=== PATIENT | female | born 1950 | race Caucasian/White ===

== ENCOUNTER 2016-07-21 06:45 | Day surgery (SDC) | payer MEDICARE, OTHER ==
[~2016-07-21 06:45] MED LIST: KETOROLAC TROMETHAMINE 0.45% 4 DROP/0.4 ML DROPERETTE OD PRN
[2016-07-21] MEDS: TROPICAMIDE 1% OPH SOLN 3 ML OD PRN ×3 (07:04→07:23)
[2016-07-21] MEDS: TETRACAINE HCL 0.5% OPH SOLN 2 ML OD PRN ×4 (07:04→08:04)
[2016-07-21] MEDS: BESIFLOXACIN HCL 0.6% OPH SUSP 5 ML BOTTLE OD PRN ×4 (07:04→08:34)
[2016-07-21] MEDS: CYCLOPENTOLATE 0.2%/PHENYLEPHRINE 1% OPH SOLN 2 ML OD PRN ×3 (07:04→07:23)
[2016-07-21] MEDS ORDERED: MIDAZOLAM 2 MG/2 ML INJ ONE (07:41)
[2016-07-21] MEDS ORDERED: FENTANYL CITRATE INJ/PF 100 MCG/2 ML AMPUL ONE (07:41)
[2016-07-21] MEDS: CHONDR SU A NA/HYALUR INTRAOC KIT (SURGICARE) ONE ×2 (08:19)
[2016-07-21] MEDS: LIDOCAINE 1% INJ-PF (10 MG/ML) 30 ML SDV ONE ×2 (08:19)
[2016-07-21] MEDS: EPINEPHRINE INJ/PF 1 MG/1 ML AMPULE ONE ×2 (08:19)
[2016-07-21] MEDS ORDERED: EPINEPHRINE INJ/PF 1 MG/1 ML AMPULE ONE (08:36)
--- NOTE | 2016-07-21 12:13 | [facility] DISCHARGE SUMMARY E ---
[facility] Discharge Summary NAME: NARGIS MELENDREZ AGE: 65Y ADMITTED: 07/21/2016 DISCHARGED: 07/21/2016 HOSPITAL COURSE: This is a 65-year-old female who underwent cataract extraction of the right eye. DIAGNOSIS: CATARACT, RIGHT EYE. She underwent surgery because she was having difficulty driving at night secondary to glare from headlights and difficulty seeing small print. She should be on a regular diet. No bending at her waist, no heavy lifting. She should use Besivance, Ilevro, and Durezol at 3 p.m. and 8 p.m. and sleep with a rigid shield. I will see her for her 1 day postoperative tomorrow. DICTATING PHYSICIAN: SLICK TAVAREZ M.D. [id number] PHY#: [id number] ID: [id number] JOB#: [id number] ACCT: [id number] cc:SLICK TAVAREZ M.D. >
--- NOTE | 2016-07-21 12:14 | [facility] OPERATIVE REPORT E ---
[facility] Operative Report NAME: NARGIS MELENDREZ AGE: 65Y DATE OF SURGERY: 07/21/2016 ROOM: PREOPERATIVE DIAGNOSIS: CATARACT, RIGHT EYE. POSTOPERATIVE DIAGNOSIS: CATARACT, RIGHT EYE. OPERATION: Cataract extraction with intraocular lens implant of the right eye. SURGEON: SLICK TAVAREZ MD ANESTHESIA: Topical. PROCEDURE: After obtaining appropriate consent, the patient's right eye was prepped and draped in sterile fashion as well as the surgeon in a sterile manner and cataract surgery was started. First a paracentesis blade was used to make a small side-port incision. Viscoelastic was used to inflate the anterior chamber. Next a 2.4 mm incision was made with the paracentesis blade. A continuous capsulorrhexis incision was made using a cystotome and Utrata forceps. Following this hydrodissection was carried out to make the lens fully loose and mobile and it was rotated 90 degrees. The remaining cortex was removed with irrigation/aspiration. Provisc was instilled into the capsular bag to inflate the bag. A SN60WF, 18.5 diopter lens was placed. Following this, a tafvcl-url-euymfxv technique was used to phacoemulsify the lens with a CDE of 6.59. The remaining viscoelastic material was removed with irrigation/aspiration. Following this, a 10-0 nylon suture was used to close the incision and it was found to be watertight. Vigamox was instilled in the eye and a protective shield was placed over the eye. The patient returned to the postoperative recovery in stable condition. DICTATING PHYSICIAN: SLICK TAVAREZ M.D. [id number] PHY#: [id number] ID: [id number] JOB#: [id number] ACCT: [id number] cc:SLICK TAVAREZ M.D. >
== END 2016-07-21 09:16 | disposition home or self-care (01) ==
LOC: SC 06:45
PROVIDERS: ATTEND Internal Medicine
PROC: 08RJ3JZ Replacement of Right Lens with Synthetic Substitute, Percutaneous Approach (ICD-10-PCS; principal; 2016-07-21 08:00)
DX: H25.11 Age-related nuclear cataract, right eye (principal); H04.123 Dry eye syndrome of bilateral lacrimal glands; Z96.1 Presence of intraocular lens; E11.9 Type 2 diabetes mellitus without complications; I10 Essential (primary) hypertension; E78.00 Pure hypercholesterolemia, unspecified; K21.9 Gastro-esophageal reflux disease without esophagitis; J45.909 Unspecified asthma, uncomplicated; E11.3292 Type 2 diabetes mellitus with mild nonproliferative diabetic retinopathy without macular edema, left eye; D64.9 Anemia, unspecified; Z87.891 Personal history of nicotine dependence; Z86.73 Personal history of transient ischemic attack (TIA), and cerebral infarction without residual deficits; Z79.51 Long term (current) use of inhaled steroids; Z79.84 Long term (current) use of oral hypoglycemic drugs; Z79.899 Other long term (current) drug therapy; Z79.82 Long term (current) use of aspirin; Z88.2 Allergy status to sulfonamides
CPT/HCPCS: 66984; 82962; V2632; J2250; J3490 ×2; A9270; J0171; J3010; 142

== ENCOUNTER → 2016-08-12 | Outpatient (CLI) | payer MEDICARE, OTHER ==
--- NOTE | 2016-08-12 15:39 | WOMENS IMAGING REPORT ---
EXAM DESCRIPTION: BONE DENSITY HIP/SPINE COMPLETED DATE/TIME: 08/12/2016 2:00 pm REASON FOR STUDY: M81.0 M81.0 AGE-RELATED OSTEOPOROSIS W/O CURRENT PATHOLOGICAL FRAC COMPARISON: None. TECHNIQUE: Dual-Energy X-ray Absorptiometry (DEXA) of the AP Spine and Hip. LIMITATIONS: None. FINDINGS: LUMBAR SPINE: The bone mineral density (BMD) measured from L1-L4 in the AP projection correlates with a T-score of -0.5, which is normal as defined by the World Health Organization. HIP: The bone mineral density (BMD) measured in the left femoral neck at the hip correlates with a T-score of -1.3, which is osteopenia as defined by the World Health Organization. COMMENT: The World Health Organization defines low BMD as follows: T-score: Normal: Greater than -1.0 Osteopenia: Between -1.0 and -2.5 Osteoporosis: Less than -2.5 without fractures Established osteoporosis: Less than -2.5 with fractures In general, you may wish to consider: Diagnosis Treatment Follow-up DEXA Normal BMD Prevention 2-3 years Osteopenia Prevention/Therapy 1-2 years Osteoporosis Therapy Yearly TECHNICAL DOCUMENTATION: JOB ID: [id number] [employer]- All Rights Reserved
== END ==
LOC: WI 13:44
PROVIDERS: ATTEND General Practice
DX: M81.0 Age-related osteoporosis without current pathological fracture (principal)
CPT/HCPCS: 77080

== ENCOUNTER 2017-04-27 15:07 | Emergency (ER) | payer MEDICARE, OTHER ==
--- NOTE | 2017-04-27 15:55 | ER Document Report ---
HPI - HPI Pain Level: 3 Context: Patient is a 66-year-old female presents emergency department complaining of left wrist pain. Patient states that she was walking in her garage when she slipped and fell landing on her left hip and her left wrist. States her worst pain is at the distal end of her left radius. She has full range of motion in her hand with no pain. No pain at the base of her thumb. She states she only has pain with motion otherwise she does not feel anything when she is at rest. Admits to history of tendinitis in this wrist. - REPRODUCTIVE Reproductive: DENIES: : Past Medical History - Social History Smoking Status: Never Smoker Family History: Reviewed & Not Pertinent - Past Medical History Cardiac Medical History: Reports: Hx Hypercholesterolemia, Hx Hypertension Denies: Hx Coronary Artery Disease, Hx Heart Attack Pulmonary Medical History: Denies: Hx Asthma, Hx Bronchitis, Hx COPD, Hx Pneumonia Neurological Medical History: Denies: Hx Cerebrovascular Accident, Hx Seizures Endocrine Medical History: Reports: Hx Diabetes Mellitus Type 2 Renal/ Medical History: Denies: Hx Peritoneal Dialysis GI Medical History: Reports: Hx Gastroesophageal Reflux Disease. 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 Denies: Hx Hysterectomy, Hx Mastectomy, Hx Open Heart Surgery, Hx Pacemaker - Immunizations Hx Diphtheria, Pertussis, Tetanus Vaccination: Yes Hx Pneumococcal Vaccination: 07/10/14 Vertical Provider Document - CONSTITUTIONAL Notes: PHYSICAL EXAM GENERAL: Alert, interacts well. EXTREMITIES: Moves all 4 extremities spontaneously. No evidence of snuffbox tenderness. Full range of motion of the wrist. Minimal tenderness to palpation without evidence of deformity, ecchymosis or edema of the left distal radius. No edema, radial and dorsalis pedis pulses 2/4 bilaterally. No cyanosis. NEUROLOGICAL: Alert and oriented x4. Normal speech. PSYCH: Normal affect, normal mood. SKIN: Warm, dry, normal turgor. No rashes or lesions noted. - INFECTION CONTROL TRAVEL OUTSIDE OF THE [place] IN LAST 30 DAYS: No - RESPIRATORY O2 Sat by Pulse Oximetry: 99 Course - Re-evaluation Re-evalutation: 04/27/17 16:00 patient is a 56-year-old female is hemodynamically stable, no acute distress afebrile. Patient without evidence of fracture dislocation noted on x-ray. No evidence of snuffbox tenderness. Patient states she is complete resolution of her pain when using a home splint and not using her hand. She states she feels comfortable taking Tylenol at home. Discussed with her to follow-up with her primary care provider in approximately 2 weeks if her symptoms persist for repeat imaging. Patient agrees with plan. - Vital Signs Vital signs: Temp Pulse Resp BP Pulse Ox 98.4 F 84 22 H 133/72 H 99 04/27/17 15:23 04/27/17 15:23 04/27/17 15:23 04/27/17 15:23 04/27/17 15:23 - Diagnostic Test Radiology reviewed: Image reviewed, Reports reviewed Discharge - Discharge Clinical Impression: Wrist injury Qualifiers: Encounter type: initial encounter Laterality: left Qualified Code(s): S69.92XA - Unspecified injury of left wrist, hand and finger(s), initial encounter Condition: Good Disposition: HOME, SELF-CARE Instructions: Wrist Sprain ([facility]) Additional Instructions: If symptoms persist for over 2 weeks please follow-up with your primary care doctor for repeat imaging. Referrals: TANISHA TURNER MD [Primary Care Provider] - Follow up as needed
--- NOTE | 2017-04-27 16:14 | RADIOLOGY REPORT (SQ) ---
EXAM DESCRIPTION: WRIST LEFT 3 VIEWS COMPLETED DATE/TIME: 04/27/2017 4:06 pm REASON FOR STUDY: fall, scaphoid/navicular view COMPARISON: None. NUMBER OF VIEWS: Four views. TECHNIQUE: AP, lateral, oblique, and scaphoid radiographic images acquired of the left wrist. LIMITATIONS: None. FINDINGS: MINERALIZATION: Normal. BONES: No acute fracture or dislocation. No worrisome bone lesions. Normal alignment. SOFT TISSUES: No soft tissue swelling. No foreign body. OTHER: No other significant finding. IMPRESSION: NEGATIVE STUDY OF THE LEFT WRIST. NO RADIOGRAPHIC EVIDENCE OF ACUTE INJURY. TECHNICAL DOCUMENTATION: JOB ID: [id number] [employer]- All Rights Reserved
[2017-04-27 16:40] VITALS: BP 132/80
== END 2017-04-27 16:40 | disposition home or self-care (01) ==
LOC: ER 15:07
DX: S69.92XA Unspecified injury of left wrist, hand and finger(s), initial encounter (principal); W01.0XXA Fall on same level from slipping, tripping and stumbling without subsequent striking against object, initial encounter; E78.00 Pure hypercholesterolemia, unspecified; I10 Essential (primary) hypertension; E11.9 Type 2 diabetes mellitus without complications; Z90.49 Acquired absence of other specified parts of digestive tract; Z98.51 Tubal ligation status
CPT/HCPCS: 99283

== ENCOUNTER 2018-05-17 17:13 | Emergency (ER) | payer MEDICARE, OTHER ==
--- NOTE | 2018-05-17 18:23 | RADIOLOGY REPORT (SQ) ---
EXAM DESCRIPTION: CT HEAD WITHOUT COMPLETED DATE/TIME: 05/17/2018 6:05 pm REASON FOR STUDY: head injury COMPARISON: None. TECHNIQUE: Axial images acquired through the brain without intravenous contrast. Images reviewed wi th bone, brain and subdural windows. Additional sagittal and coronal reconstructions were generated. Images stored on PACS. All CT scanners at this facility use dose modulation, iterative reconstruction, and/or weight based d osing when appropriate to reduce radiation dose to as low as reasonably achievable (ALARA). [facility]: Dose Right [facility]: CareDose [facility]: Dose Right [facility]: Teradose 4D [facility]: Macrotek RADIATION DOSE: CT Rad equipment meets quality standard of care and radiation dose reduction techniq ues were employed. CTDIvol: 53.2 mGy. DLP: 1017 mGy-cm. mGy. LIMITATIONS: None. FINDINGS: VENTRICLES: Normal size and contour. CEREBRUM: No masses. No hemorrhage. No midline shift. 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 No evidence for acute infarction. Normal thurston/white matter differentiation. No areas of low den sity in the white matter. CEREBELLUM: No masses. No hemorrhage. No alteration of density. No evidence for acute infarction. EXTRAAXIAL SPACES: No fluid collections. No masses. ORBITS AND GLOBE: No intra- or extraconal masses. Normal contour of globe without masses. CALVARIUM: No fracture. PARANASAL SINUSES: No fluid or mucosal thickening. SOFT TISSUES: Posterior scalp hematoma. OTHER: No other significant finding. IMPRESSION: POSTERIOR SCALP HEMATOMA. NO SKULL FRACTURE. 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 OTHERWISE NO ACUTE FINDINGS. EVIDENCE OF ACUTE STROKE: NO. COMMENT: Quality ID # [id number]: Final reports with documentation of one or more dose reduction techniques (e.g., Automated exposure control, adjustment of the mA and/or kV according to patient size, use of iterative reconstruction technique) TECHNICAL DOCUMENTATION: JOB ID: [id number] [employer]- All Rights Reserved Reading location - IP/workstation name: [email or web address]
[2018-05-17] MEDS ORDERED: ACETAMINOPHEN 325 MG TABLET PO ONE (18:54)
--- NOTE | 2018-05-17 18:59 | ER Document Report ---
ED General - General Chief Complaint: Fall Stated Complaint: FALL/HEAD INJURY Time Seen by Provider: 05/17/18 18:18 Notes: Patient is a 67-year old female who presents after a mechanical trip and fall in which she struck the right posterior aspect of her scalp as well as her left humeral region. She states this happened after she got her hand actually stuck in a screen of the window causing her to fall backwards onto the ground. She does state that she lost consciousness. Family at the bedside states that when she originally called them she was confused, states she had fallen in the bathroom. The patient notes a dull, throbbing, constant pain to the right posterior aspect of her scalp. Nothing improves or worsens this pain. No history of similar injuries in the past. She does take aspirin but no additional anticoagulation. She has not contacted her primary care doctor regarding today's concerns. She does arrive by EMS. She denies any focal weakness, numbness or current confusion. No vomiting. TRAVEL OUTSIDE OF THE [place] IN LAST 30 DAYS: No - Related Data Allergies/Adverse Reactions: Sulfa (Sulfonamide Antibiotics) Allergy (Mild, Verified 11/07/14 15:13) Generalized rash epinephrine Allergy (Verified 04/27/17 15:23) Past Medical History - General Information source: Patient - Social History Smoking Status: Never Smoker Chew tobacco use (# tins/day): No Frequency of alcohol use: None Drug Abuse: None Lives with: Spouse/Significant other Family History: Reviewed & Not Pertinent Patient has suicidal ideation: No Patient has homicidal ideation: No - Past Medical History Cardiac Medical History: Reports: Hx Hypercholesterolemia, Hx Hypertension Denies: Hx Coronary Artery Disease, Hx Heart Attack Pulmonary Medical History: Denies: Hx Asthma, Hx Bronchitis, Hx COPD, Hx Pneumonia Neurological Medical History: Denies: Hx Cerebrovascular Accident, Hx Seizures Endocrine Medical History: Reports: Hx Diabetes Mellitus Type 2 Renal/ Medical History: Denies: Hx Peritoneal Dialysis GI Medical History: Reports: Hx Gastroesophageal Reflux Disease. 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 Denies: Hx Hysterectomy, Hx Mastectomy, Hx Open Heart Surgery, Hx Pacemaker - Immunizations Hx Diphtheria, Pertussis, Tetanus Vaccination: Yes Hx Pneumococcal Vaccination: 07/10/14 Review of Systems - Review of Systems Notes: Constitutional: Negative for fever. Eyes: Negative for visual changes. ENT: Negative for facial injury Cardiovascular: Negative for chest injury. Respiratory: Negative for shortness of breath. Gastrointestinal: Negative for abdominal injury. Genitourinary: Negative for genital injury Musculoskeletal: Positive for left upper extremity injury Skin: Positive for laceration/abrasions. Neurological: Positive for head injury. Physical Exam - Vital signs Vitals: Resp Pulse Ox 15 100 05/17/18 17:17 05/17/18 17:17 Interpretation: Normal Notes: PHYSICAL EXAMINATION: GENERAL: Well-appearing, no acute distress. HEAD: 1 x 1 cm scalp hematoma to the left posterior central scalp, normocephalic. EYES: Pupils equal round and reactive to light, extraocular movements intact, sclera anicteric, conjunctiva are normal. ENT: nares patent, no oral pharyngeal trauma. No hemotympanum, no Michael's sign , no raccoon eyes. NECK: No midline cervical spine tenderness. Patient able to move their head to 45 bilaterally without any discomfort. LUNGS: Breath sounds clear to auscultation bilaterally and equal. No wheezes rales or rhonchi. HEART: Regular rate and rhythm without murmurs. CHEST WALL: No ecchymosis over the chest wall. ABDOMEN: Soft, nontender, normoactive bowel sounds. No guarding, no rebound. No abdominal bruising EXTREMITIES: Normal range of motion, no pitting or edema. No long bone deformities. BACK: No midline spinal tenderness, step-offs, or deformities. NEUROLOGICAL: Face symmetric. Tongue protrudes midline. Extraocular motions intact. Pupils are 2 mm and equally reactive. Normal speech, normal gait. 5 out of 5 strength in both the distal and proximal upper and lower extremities bilaterally. Sensation is grossly intact throughout. Finger to nose testing normal. Pronator drift normal. PSYCH: Normal mood, normal affect. Alert, oriented x4 SKIN: Warm, Dry, normal turgor, abrasion and hematoma over the left mid biceps Course - Re-evaluation Re-evalutation: 05/17/18 18:54 Presentation of a well appearing elderly patient in no acute distress, vitals within normal limits after a mechanical fall. Patient denies a syncopal episode as the cause for today's fall. No focal neurologic deficits on exam, no evidence of basilar skull fracture on exam without evidence of hemotympanum, raccoon eyes, or periauricular hematoma. No papilledema. Patient is not on anticoagulation. GCS is 15. Patient did have loss of consciousness. No episodes of vomiting. Given age and history a CT of the head was obtained which is noted to be normal with the exception of a posterior scalp hematoma. On exam there is a skin abrasion but no repairable lacerations. No neck pain, Nexus criteria negative. Patient has no focal deformities or limited range of motion in any joint space. She does have a hematoma over the left mid humerus and a x-ray does not show any underlying fracture. Chest and abdominal exam are benign without any focal tenderness, shortness of breath, or bruising over the chest or abdominal wall. Patient has ambulated and tolerated oral intake without difficulty. Tetanus is already up-to-date. Patient has no flank tenderness. There is no obvious findings on trauma exam today and therefore no further imaging or evaluation will be obtained at this time. At this time will discharge with return precautions and follow-up recommendations. Verbal discharge instructions given a the bedside and opportunity for questions given. Medication warnings reviewed. Patient is in agreement with this plan and has verbalized understanding of return precautions and the need for primary care follow-up in the next 24-72 hours. - Vital Signs Vital signs: Temp Pulse Resp BP Pulse Ox 98.2 F 85 20 148/86 H 97 05/17/18 17:27 05/17/18 17:27 05/17/18 17:27 05/17/18 17:27 05/17/18 17:27 - Diagnostic Test Radiology reviewed: Image reviewed, Reports reviewed Radiology results interpreted by me: 05/17/18 18:57 CT head: No acute intracranial bleed or mass, right posterior scalp hematoma Discharge - Discharge Clinical Impression: Scalp hematoma Qualifiers: Encounter type: initial encounter Qualified Code(s): S00.03XA - Contusion of scalp, initial encounter Head trauma Qualifiers: Encounter type: initial encounter Qualified Code(s): S09.90XA - Unspecified injury of head, initial encounter Traumatic hematoma of left upper arm Qualifiers: Encounter type: initial encounter Qualified Code(s): S40.022A - Contusion of left upper arm, initial encounter Condition: Good Disposition: HOME, SELF-CARE Additional Instructions: You have likely sustained a contusion (bruise) to your head. Your CT scan of your head and x-ray of your left upper extremity are normal. Symptoms to expect from a concussion include nausea, mild to moderate headache, difficulty concentrating or sleeping, and mild lightheadedness. These symptoms should improve over the next few days to weeks. Return to the emergency department or follow-up with your primary care doctor if your symptoms are not improving over this time. Signs of a more serious head injury include vomiting, severe headache, excessive sleepiness or confusion, and weakness or numbness in your face, arms or legs. Return immediately to the Emergency Department if you experience any of these more concerning symptoms. Rest, avoid strenuous physical or mental activity, and avoid activities that could potentially result in another head injury until all your symptoms from this head injury are completely resolved for at least 2-3 weeks. If you participate in sports, get cleared by your doctor or athletic trainer before returning to play. You may take ibuprofen or acetaminophen over the counter according to label instructions for mild headache or scalp soreness. Referrals: TANISHA TURNER MD [Primary Care Provider] - Follow up as needed
--- NOTE | 2018-05-17 19:13 | RADIOLOGY REPORT (SQ) ---
EXAM DESCRIPTION: HUMERUS LEFT COMPLETED DATE/TIME: 05/17/2018 7:05 pm REASON FOR STUDY: fall, hematoma COMPARISON: None. NUMBER OF VIEWS: Two views. TECHNIQUE: Two radiographic images were acquired of the left humerus to include elbow and shoulder i n at least one projection. LIMITATIONS: None. FINDINGS: MINERALIZATION: Normal. BONES: No acute fracture or dislocation. No worrisome bone lesions. SOFT TISSUES: No obvious swelling or foreign body. OTHER: No other significant finding. IMPRESSION: NEGATIVE STUDY OF THE LEFT HUMERUS. NO RADIOGRAPHIC EVIDENCE OF ACUTE INJURY. TECHNICAL DOCUMENTATION: JOB ID: [id number] [employer]- All Rights Reserved Reading location - IP/workstation name: [email or web address]
[2018-05-17 20:20] VITALS: BP 131/71
== END 2018-05-17 20:20 | disposition home or self-care (01) ==
LOC: ER 17:13
DX: S09.90XA Unspecified injury of head, initial encounter (principal); S00.03XA Contusion of scalp, initial encounter; S40.022A Contusion of left upper arm, initial encounter; W01.0XXA Fall on same level from slipping, tripping and stumbling without subsequent striking against object, initial encounter; Z88.2 Allergy status to sulfonamides; E78.00 Pure hypercholesterolemia, unspecified; I10 Essential (primary) hypertension; E11.9 Type 2 diabetes mellitus without complications; Z90.49 Acquired absence of other specified parts of digestive tract; Z98.51 Tubal ligation status
CPT/HCPCS: 99284; 73060; 70450; A9270

== ENCOUNTER 2018-07-12 14:21 | Day surgery (SDC) | payer MEDICARE, OTHER ==
[~2018-07-12 14:21] MED LIST changes: +ACETAMINOPHEN 325 MG TABLET PO PRN; +CEFAZOLIN 1 GM/D5W RTU 1 GM/50 ML RTUPB IV PRN; -KETOROLAC TROMETHAMINE 0.45% 4 DROP/0.4 ML DROPERETTE OD PRN
[2018-07-12 15:20] LABS: HEMATOCRIT 30.4 % (36.0-47.0); HEMOGLOBIN 10.3 g/dL (12.0-15.5); MEAN CORPUSCULAR HEMOGLOBIN 30.5 pg (27.0-33.4); MEAN CORPUSCULAR HGB CONC 33.9 g/dL (32.0-36.0); MEAN CORPUSCULAR VOLUME 90 fl (80-97); PLATELET COUNT 253 10^3/uL (150-450); RED BLOOD COUNT 3.37 10^6/uL (3.72-5.28); RED CELL DISTRIBUTION WIDTH 14.9 % (11.5-14.0); WHITE BLOOD COUNT 7.8 10^3/uL (4.0-10.5)
[2018-07-12] MEDS ORDERED: CEFAZOLIN INJ 1 GM VIAL ONE (15:39)
[2018-07-12 15:54] LABS: POTASSIUM 4.3 mmol/L (3.6-5.0)
[2018-07-12] MEDS ORDERED: PROPOFOL INJ 200 MG/20 ML VIAL IV ONE (17:10)
[2018-07-12] MEDS ORDERED: MIDAZOLAM 2 MG/2 ML INJ ONE (17:10)
[2018-07-12] MEDS ORDERED: FENTANYL CITRATE INJ/PF 100 MCG/2 ML AMPUL ONE (17:10)
[2018-07-12] MEDS ORDERED: OXYCODONE-ACETAMINOPHEN 5-325 MG TABLET PO PRN (17:59)
[2018-07-12] MEDS ORDERED: FENTANYL CITRATE INJ/PF 100 MCG/2 ML AMPUL IV PRN ×3 (17:59)
[2018-07-12] MEDS ORDERED: DIPHENHYDRAMINE HCL 50 MG/ML VIAL IV PRN (17:59)
[2018-07-12] MEDS ORDERED: MEPERIDINE HCL/PF INJ 25 MG/1 ML DISP.SYRIN IV PRN (17:59)
[2018-07-12] MEDS ORDERED: PROMETHAZINE HCL INJ 25 MG/1 ML VIAL IV PRN (17:59)
[2018-07-12] MEDS ORDERED: LIDOCAINE 1% INJ-PF (10 MG/ML) 30 ML SDV ONE (18:06)
--- NOTE | 2018-07-12 18:51 | Discharge Summary ---
Discharge Summary (SDC) - Discharge Final Diagnosis: pancreatic cancer Date of Surgery: 07/12/18 Condition: Good Treatment or Instructions: keep wound dry till f/u with oncology Referrals: TANISHA TURNER MD [Primary Care Provider] - Discharge Diet: As Tolerated Home Care Assistance: None Needed Report the Following to Your Physician Immediately: Shortness of Breath, Nausea, Swelling, Warmth
--- NOTE | 2018-07-12 18:56 | Operative Report ---
Operative Report DATE OF SURGERY: 07/12/18 PREOPERATIVE DIAGNOSIS: Pancreatic cancer POSTOPERATIVE DIAGNOSIS: Pancreatic cancer OPERATION: Port-A-Cath placement left chest SURGEON: SULY LOPEZ ANESTHESIA: Moderate Sedation TISSUE REMOVED OR ALTERED: None COMPLICATIONS: None ESTIMATED BLOOD LOSS: 5 cc INTRAOPERATIVE FINDINGS: Normal normal venous anatomy PROCEDURE: She was brought to the operating room in awake and alert in stable condition placed on the operating table in supine position given IV sedation left chest was prepped and draped in usual sterile fashion Percent lidocaine plain a skin wheal was raised underneath the left clavicle after this was completed we able to perform a subclavian vein cannulation with a 16-gauge needle. Needle a J-wire was placed and confirmed in the superior vena cava by fluoroscopy. . Good position of the wire the tear-away introducer dilator was placed over the wire into the superior vena cava. The dilator wire combination was removed from the introducer and then the catheter 8 Libyan was placed into the tear-away introducer and the tear-away introducer was peeled away. A small incision was made on the left anterior chest wall after anesthetizing the skin with 1% lidocaine plain pocket was made for the for the PowerPort. Once the pocket was complete the power port was attached to the catheter which was tunneled underneath the skin from the subclavian stick site to the port site. This was completed the catheter port was irrigated with heparinized saline solution and then confirmed in good position with fluoroscopy. The port site was then closed with 3-0 Vicryl suture the subcutaneous tissue and intracuticular intracuticular 4 o Biosyn for the skin. Sterile dressing was applied which completed the procedure and the patient was transferred to recovery in stable condition no complications Estimated blood loss less than 5 cc
--- NOTE | 2018-07-12 19:12 | RADIOLOGY REPORT (SQ) ---
EXAM DESCRIPTION: CHEST SINGLE VIEW COMPLETED DATE/TIME: 07/12/2018 6:58 pm REASON FOR STUDY: delta cath placement COMPARISON: None. EXAM PARAMETERS: NUMBER OF VIEWS: One view. TECHNIQUE: Single frontal radiographic view of the chest acquired. RADIATION DOSE: NA LIMITATIONS: None. FINDINGS: LUNGS AND PLEURA: Patchy airspace opacities are present in the left medial lung base. No pneumothorax. No pleural effusion. MEDIASTINUM AND HILAR STRUCTURES: Contour normal. HEART AND VASCULAR STRUCTURES: Heart normal in size. Normal vasculature. BONES: No acute findings. HARDWARE: Left chest port. OTHER: No other significant finding. IMPRESSION: Patchy airspace opacities are present in the left medial lung base. No pneumothorax. TECHNICAL DOCUMENTATION: JOB ID: [id number] 2010 [employer]- All Rights Reserved Reading location - IP/workstation name: [employer]
[2018-07-12 19:52] VITALS: BP 113/63
--- NOTE | 2018-07-13 08:40 | RADIOLOGY REPORT (SQ) ---
EXAM DESCRIPTION: NO CHG FLUORO; FLUORO/CV PLACEMENT COMPLETED DATE/TIME: 07/12/2018 9:08 pm REASON FOR STUDY: PORT-A-CATH COMPARISON: 07/12/2017 FLUOROSCOPY TIME: 1.5 minutes 4 Images saved to PACS LIMITATIONS: None. PROCEDURE: Intraoperative fluoroscopic images obtained during port placement. Please see operative report for detailed description of procedure. FINDINGS: Limited intraoperative images obtained for left-sided chest port placement. IMPRESSION: Intraoperative images obtained during left-sided chest port placement. Please see opera tive report for detailed description of procedure. COMMENT: PQRS 6045F: Fluoroscopy time of the procedure is documented in the report. TECHNICAL DOCUMENTATION: JOB ID: [id number] [employer]- All Rights Reserved Reading location - IP/workstation name: [email or web address]
--- NOTE | 2018-07-13 08:40 | RADIOLOGY REPORT (SQ) ---
EXAM DESCRIPTION: NO CHG FLUORO; FLUORO/CV PLACEMENT COMPLETED DATE/TIME: 07/12/2018 9:08 pm REASON FOR STUDY: PORT-A-CATH COMPARISON: 07/12/2017 FLUOROSCOPY TIME: 1.5 minutes 4 Images saved to PACS LIMITATIONS: None. PROCEDURE: Intraoperative fluoroscopic images obtained during port placement. Please see operative report for detailed description of procedure. FINDINGS: Limited intraoperative images obtained for left-sided chest port placement. IMPRESSION: Intraoperative images obtained during left-sided chest port placement. Please see opera tive report for detailed description of procedure. COMMENT: PQRS [id number]: Fluoroscopy time of the procedure is documented in the report. TECHNICAL DOCUMENTATION: JOB ID: [id number] [employer]- All Rights Reserved Reading location - IP/workstation name: [email or web address]
== END 2018-07-12 19:55 | disposition home or self-care (01) ==
LOC: OROUT 14:21
PROVIDERS: ATTEND Surgery
DX: C25.9 Malignant neoplasm of pancreas, unspecified (principal); D64.9 Anemia, unspecified; F41.9 Anxiety disorder, unspecified; I10 Essential (primary) hypertension; E11.9 Type 2 diabetes mellitus without complications; E78.00 Pure hypercholesterolemia, unspecified; K21.9 Gastro-esophageal reflux disease without esophagitis; Z79.82 Long term (current) use of aspirin; Z79.899 Other long term (current) drug therapy; Z79.84 Long term (current) use of oral hypoglycemic drugs
CPT/HCPCS: 36415; 82947; 84132; 85027; 71045; 77001; 36561; C1788; Q9967; J2250; J0690; J3010; J3490; J2704; J1642; 532

== ENCOUNTER 2018-09-05 09:17 | Emergency (ER) | payer MEDICARE ==
[2018-09-05 09:37] VITALS: BP 131/74
--- NOTE | 2018-09-05 10:08 | EKG REPORT ---
SEVERITY:- BORDERLINE ECG - SINUS RHYTHM SHORT IN INTERVAL, ACCELERATED AV CONDUCTION MINIMAL ST DEPRESSION, LATERAL LEADS : Confirmed by: Molina Blount 05-Sep-2018 10:08:04
[2018-09-05] MEDS ORDERED: ASPIRIN 81 MG TABLET, CHEWABLE PO ONE (10:58)
[2018-09-05] MEDS ORDERED: FENTANYL CITRATE INJ/PF 100 MCG/2 ML AMPUL IV ONE (10:58)
--- NOTE | 2018-09-05 11:00 | ER Document Report ---
ED Medical Screen (RME) - General Chief Complaint: Chest Pain Stated Complaint: CHEST PAIN Time Seen by Provider: 09/05/18 10:58 Primary Care Provider: TANISHA TURNER MD [Primary Care Provider] - Follow up as needed Notes: Chief complaint: Chest pain History of complain:( obtained from----patient) 68 years old female with a history of pancreatic cancer, currently on chemotherapy. This morning had a substernal chest discomfort. It felt like somebody sitting on her chest that lasted for about 15 minutes then it went away. It was not associated with any left arm numbness tingling sensation nausea vomiting palpitation or diaphoresis. She also having pain over the gastric feeding tube area. No fever chills or other constitutional symptoms PHYSICAL EXAMINATION: GENERAL: Cachexia of malignancy noted HEAD: Atraumatic, normocephalic. EYES: Pupils equal round and reactive to light, extraocular movements intact, conjunctiva are normal. ENT: Nares patent, oropharynx clear without exudates. Moist mucous membranes. NECK: Normal range of motion, supple without lymphadenopathy LUNGS: Breath sounds clear to auscultation bilaterally and equal. No wheezes rales or rhonchi. HEART: Regular rate and rhythm without murmurs ABDOMEN: Soft, tender over the mid abdomen noted, nondistended abdomen. No guarding, no rebound. No masses appreciated. Dictation was performed using Img[employer] voice recognition software TRAVEL OUTSIDE OF THE [place] IN LAST 30 DAYS: No - Related Data Allergies/Adverse Reactions: Sulfa (Sulfonamide Antibiotics) Allergy (Mild, Verified 09/05/18 09:19) Generalized rash epinephrine Allergy (Verified 09/05/18 09:19) Past Medical History - Past Medical History Cardiac Medical History: Reports: Hx Hypercholesterolemia, Hx Hypertension Denies: Hx Coronary Artery Disease, Hx Heart Attack Pulmonary Medical History: Denies: Hx Asthma, Hx Bronchitis, Hx COPD, Hx Pneumonia Neurological Medical History: Denies: Hx Cerebrovascular Accident, Hx Seizures Endocrine Medical History: Reports: Hx Diabetes Mellitus Type 2 Renal/ Medical History: Denies: Hx Peritoneal Dialysis GI Medical History: Reports: Hx Gastroesophageal Reflux Disease. 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 Denies: Hx Hysterectomy, Hx Mastectomy, Hx Open Heart Surgery, Hx Pacemaker - Immunizations Hx Diphtheria, Pertussis, Tetanus Vaccination: Yes History of Influenza Vaccine for 04/2017 - 09/2017 Season: Yes Influenza Administration Date for 04/2017 - 09/2017 Season: 04/09/18 Physical Exam - Vital signs Vitals: Temp Pulse BP Pulse Ox 99.0 F 94 131/74 H 98 09/05/18 09:32 09/05/18 09:32 09/05/18 09:32 09/05/18 09:32 Course - Vital Signs Vital signs: Temp Pulse Resp BP Pulse Ox 99.0 F 94 131/74 H 98 09/05/18 09:32 09/05/18 09:32 09/05/18 09:32 09/05/18 09:32 Doctor's Discharge - Discharge Referrals: TANISHA TURNER MD [Primary Care Provider] - Follow up as needed
[2018-09-05 11:35] LABS: ABSOLUTE EOSINOPHILS # (AUTO) 0.1 10^3/uL (0.0-0.6); ABSOLUTE LYMPHOCYTES (AUTO) 1.6 10^3/uL (0.5-4.7); ABSOLUTE MONOCYTES (AUTO) 0.5 10^3/uL (0.1-1.4); BASOPHILS % (AUTO) 0.5 % (0-2); EOSINOPHILS % (AUTO) 1.5 % (0-6); HEMATOCRIT 29.7 % (36.0-47.0); LYMPHOCYTES % (AUTO) 38.4 % (13-45); MEAN CORPUSCULAR HEMOGLOBIN 30.2 pg (27.0-33.4); MEAN CORPUSCULAR HGB CONC 33.6 g/dL (32.0-36.0); MEAN CORPUSCULAR VOLUME 90 fl (80-97); MONOCYTES % (AUTO) 11.1 % (3-13); PLATELET COUNT 128 10^3/uL (150-450); RED CELL DISTRIBUTION WIDTH 17.8 % (11.5-14.0); SEGMENTED NEUTROPHILS % (AUTO) 48.5 % (42-78); TOTAL CELLS COUNTED % (AUTO) 100 %; WHITE BLOOD COUNT 4.1 10^3/uL (4.0-10.5)
--- NOTE | 2018-09-05 11:50 | RADIOLOGY REPORT (SQ) ---
EXAM DESCRIPTION: CHEST SINGLE VIEW COMPLETED DATE/TIME: 09/05/2018 11:38 am REASON FOR STUDY: Chest pain COMPARISON: 07/12/2018 EXAM PARAMETERS: NUMBER OF VIEWS: One view. TECHNIQUE: Single frontal radiographic view of the chest acquired. RADIATION DOSE: NA LIMITATIONS: None. FINDINGS: LUNGS AND PLEURA: No opacities, masses or pneumothorax. No pleural effusion. MEDIASTINUM AND HILAR STRUCTURES: No masses. Contour normal. HEART AND VASCULAR STRUCTURES: Extensive mitral annular calcification. BONES: No acute findings. HARDWARE: Venous access catheter unchanged. OTHER: No other significant finding. IMPRESSION: Extensive mitral annular calcification. No acute pulmonary disease. TECHNICAL DOCUMENTATION: JOB ID: [id number] [employer]- All Rights Reserved Reading location - IP/workstation name: [email or web address]
[2018-09-05 12:01] LABS: ALANINE AMINOTRANSFERASE 32 U/L (9-52); ALKALINE PHOSPHATASE 143 U/L (38-126); ANION GAP 5 (5-19); ASPARTATE AMINO TRANSFERASE 25 U/L (14-36); BILIRUBIN,DIRECT 0.2 mg/dL (0.0-0.4); BILIRUBIN,TOTAL 0.5 mg/dL (0.2-1.3); BLOOD UREA NITROGEN 11 mg/dL (7-20); CARBON DIOXIDE 28 mmol/L (22-30); CHLORIDE 103 mmol/L (98-107); CREATINE KINASE 32 U/L (30-135); GLUCOSE 174 mg/dL (75-110); POTASSIUM 5.3 mmol/L (3.6-5.0); SODIUM 136.1 mmol/L (137-145); TOTAL PROTEIN 5.8 g/dL (6.3-8.2)
[2018-09-05 12:10] LABS: CREATINE KINASE MB 0.36 ng/mL (<4.55)
[2018-09-05 12:16] LABS: TROPONIN I < 0.012 ng/mL
== END 2018-09-05 14:31 | disposition left against medical advice (07) ==
LOC: ER 09:17
DX: R07.2 Precordial pain (principal); I10 Essential (primary) hypertension; E11.9 Type 2 diabetes mellitus without complications; C25.9 Malignant neoplasm of pancreas, unspecified; Z79.899 Other long term (current) drug therapy; Z93.1 Gastrostomy status; R10.9 Unspecified abdominal pain; Z88.2 Allergy status to sulfonamides; Z88.8 Allergy status to other drugs, medicaments and biological substances; Z53.20 Procedure and treatment not carried out because of patient's decision for unspecified reasons
CPT/HCPCS: 93005; 99285; 96374; 36415; 82553; 82550; 85025; 80053; 84484; 71045; 93010; A9270; J3010; 99281

== ENCOUNTER 2018-10-11 05:25 | Inpatient (IN) | payer MEDICARE, OTHER ==
[2018-10-04 11:39] LABS: ABSOLUTE EOSINOPHILS # (AUTO) 0.1 10^3/uL (0.0-0.6); ABSOLUTE MONOCYTES (AUTO) 0.8 10^3/uL (0.1-1.4); ABSOLUTE NEUT (AUTO) 4.1 10^3/uL (1.7-8.2); BASOPHILS % (AUTO) 0.4 % (0-2); EOSINOPHILS % (AUTO) 1.6 % (0-6); HEMATOCRIT 28.6 % (36.0-47.0); HEMOGLOBIN 9.4 g/dL (12.0-15.5); LYMPHOCYTES % (AUTO) 27.9 % (13-45); MEAN CORPUSCULAR HEMOGLOBIN 31.2 pg (27.0-33.4); MEAN CORPUSCULAR HGB CONC 33.1 g/dL (32.0-36.0); MEAN CORPUSCULAR VOLUME 94 fl (80-97); MONOCYTES % (AUTO) 11.4 % (3-13); PLATELET COUNT 134 10^3/uL (150-450); RED BLOOD COUNT 3.03 10^6/uL (3.72-5.28); RED CELL DISTRIBUTION WIDTH 21.1 % (11.5-14.0); SEGMENTED NEUTROPHILS % (AUTO) 58.7 % (42-78); TOTAL CELLS COUNTED % (AUTO) 100 %
[2018-10-04 11:54] LABS: BLOOD UREA NITROGEN 18 mg/dL (7-20); CALCIUM 8.8 mg/dL (8.4-10.2); CARBON DIOXIDE 28 mmol/L (22-30); CHLORIDE 104 mmol/L (98-107); GLUCOSE 159 mg/dL (75-110); POTASSIUM 5.1 mmol/L (3.6-5.0)
[2018-10-04 12:01] LABS: ANION GAP 5 (5-19); SODIUM 136.8 mmol/L (137-145)
--- NOTE | 2018-10-04 14:45 | EKG REPORT ---
SEVERITY:- NORMAL ECG - SINUS RHYTHM : Confirmed by: Rissa Jean MD 04-Oct-2018 14:44:45
[~2018-10-11 05:25] MED LIST changes: -ACETAMINOPHEN 325 MG TABLET PO PRN; +CEFAZOLIN 1 GM/D5W RTU 1 GM/50 ML RTUPB IV ONE; +LACTATED RINGERS 1000 ML IV PRN; +LIDOCAINE 0.5% INJ-PF (5 MG/ML) 50 ML SDV SUBCUT PRN; +METRONIDAZOLE 500 MG/NS RTU 500 MG/100 ML RTUPB IV ONE; +METRONIDAZOLE 500 MG/NS RTU 500 MG/100 ML RTUPB IV PRN
[2018-10-11 06:54] LABS: POTASSIUM 3.1 mmol/L (3.6-5.0)
[2018-10-11] MEDS ORDERED: MIDAZOLAM 2 MG/2 ML INJ ONE ×2 (07:28→15:49)
[2018-10-11] MEDS ORDERED: FENTANYL CITRATE INJ/PF 250 MCG/5 ML AMPULE ONE (07:28)
[2018-10-11] MEDS ORDERED: ACETAMINOPHEN 1,000 MG/100 ML RTUPB IV ONE (07:29)
[2018-10-11] MEDS ORDERED: HYDROMORPHONE HCL INJ/PF 2 MG/ML AMPULE ONE (07:29)
[2018-10-11] MEDS ORDERED: PROPOFOL INJ 200 MG/20 ML VIAL IV ONE (07:29)
[2018-10-11] MEDS ORDERED: EPHEDRINE SULFATE INJ 50 MG/1 ML AMPULE ONE (07:29)
--- NOTE | 2018-10-11 10:07 | XCELERA REPORT ---
[address] [address] Transthoracic Echocardiogram Report Name: NARGIS MELENDREZ Age: 68 yrs Gender: Female : 1950 Patient Status: Inpatient Patient Location: [facility]^OR^A Study Date: 10/11/2018 08:30 AM Height: 61 in Weight: 144 lb BSA: 1.6 m2 Procedure: A two-dimensional transthoracic echocardiogram with color flow Doppler was performed. Study Quality: Good. Reason For Study: MURMUR / PRE-OP History: MURMUR / PRE-OP. Ordering Physician: SULY LOPEZ Performed By: Pippa Kan Interpretation Summary The left ventricle is normal in size. There is normal left ventricular wall thickness. LV EF is > than 65% Left ventricular systolic function is normal. Doppler measurements suggest impaired left ventricular relaxation, which is associated with grade I/IV or mild diastolic dysfunction The left ventricular wall motion is normal. There is no thrombus. No ASD ,VSD , or PFO seen. The right ventricle is normal in size and function. The right atrium is normal. The left atrium is moderately dilated. There is severe mitral annular calcification. Calcified mitral apparatus causing mitral stenosis. There is no evidence of mitral valve prolapse. There is no vegetation seen on the mitral valve. There is mild mitral stenosis There is a moderate amount of mitral regurgitation There is no aortic valvular vegetation. There is no aortic valve stenosis There is aortic sclerosis without aortic stenosis. No aortic regurgitation is present. There is no tricuspid stenosis. There is a mild amount of tricuspid regurgitation There is mild pulmonary hypertension by echo RVSP is 41 to 46 mm of Hg, with RA mean of 5 to 10. There is no pulmonic valvular stenosis. There is no pulmonic valvular regurgitation. The aortic root is normal size. The inferior vena cava appeared normal and decreased > 50% with respiration (RAP 5-10 mmHg) There is no pericardial effusion. MMode/2D Measurements & Calculations RVDd: 2.9 cm LVIDd: 4.5 cm FS: 32.2 % Ao root diam: 2.5 cm IVSd: 0.99 cm LVIDs: 3.1 cm EDV(Teich): 93.3 ml Ao root area: 4.9 cm2 LVPWd: 1.0 cm ESV(Teich): 36.9 ml LA dimension: 3.9 cm EF(Teich): 60.5 % Doppler Measurements & Calculations MV E max adri: MV P1/2t max adri: Ao V2 max: LV V1 max P.0 cm/sec 124.3 cm/sec 170.6 cm/sec 5.7 mmHg MV A max adri: MV P1/2t: 79.7 msec Ao max PG: LV V1 max: 133.3 cm/sec MVA(P1/2t): 2.8 cm2 11.6 mmHg 119.4 cm/sec MV E/A: 0.86 MV dec slope: 456.8 cm/sec2 MV dec time: 0.23 sec PA V2 max: TR max adri: MV P1/2t-pr_phl: 106.1 cm/sec 299.2 cm/sec 81.9 msec PA max P.5 mmHgTR max P.8 mmHg Left Ventricle The left ventricle is normal in size. There is normal left ventricular wall thickness. LV EF is > than 65%. Left ventricular systolic function is normal. Doppler measurements suggest impaired left ventricular relaxation, which is associated with grade I/IV or mild diastolic dysfunction. The left ventricular wall motion is normal. There is no thrombus. No ASD ,VSD , or PFO seen. Right Ventricle The right ventricle is normal in size and function. Atria The right atrium is normal. The left atrium is moderately dilated. Mitral Valve There is severe mitral annular calcification. Calcified mitral apparatus causing mitral stenosis. There is no evidence of mitral valve prolapse. There is no vegetation seen on the mitral valve. There is mild mitral stenosis. There is a moderate amount of mitral regurgitation. Aortic Valve There is no aortic valvular vegetation. There is no aortic valve stenosis. There is aortic sclerosis without aortic stenosis. No aortic regurgitation is present. Tricuspid Valve There is no tricuspid stenosis. There is a mild amount of tricuspid regurgitation. There is mild pulmonary hypertension by echo. RVSP is 41 to 46 mm of Hg, with RA mean of 5 to 10. Pulmonic Valve There is no pulmonic valvular stenosis. There is no pulmonic valvular regurgitation. Great Vessels The aortic root is normal size. The inferior vena cava appeared normal and decreased > 50% with respiration (RAP 5-10 mmHg). Effusions There is no pericardial effusion. : SULY LOPEZ > Rissa Jean
[2018-10-11] MEDS ORDERED: POTASSI CL 20 MEQ/50 ML IV SCH (10:15)
[2018-10-11] MEDS ORDERED: RIDER IV SCH (10:15)
--- NOTE | 2018-10-11 10:49 | Progress Note ---
Provider Note Provider Note: CARDIOLOGY PRELIMINARY CONSULTATION NOTE by Dr. Rissa Jean on 10/11/2018. REASON FOR CONSULTATION: Patient with the mitral valve disorder for preoperative cardiac risk assessment. Patient interviewed and examined. Formal consult to follow. DIAGNOSIS: 1. Asymptomatic mitral valve disorder. Patient has mild mitral stenosis and moderate mitral regurgitation by echocardiography. 2. Pancreatic cancer for Whipple surgical procedure. 3. Hypertension: Well controlled 4. Diabetes mellitus. The patient's echocardiogram shows normal left ventricular systolic function, with mild left ventricular diastolic dysfunction. There is aortic sclerosis without stenosis. There is no aortic regurgitation. There is mild tricuspid regurgitation, with mild pulmonary hypertension. There is heavy mitral annular calcification with mild mitral stenosis, and moderate mitral regurgitation. Moderate left atrial enlargement. The patient is EKG: Sinus rhythm within normal limits. ASSESSMENT: 1.The patient will be an acceptable/average cardiac risk for this procedure under general anesthesia. 2. Postoperatively would monitor the patient's heart rhythm, especially to keep a vigilant for development of atrial fibrillation, and also monitor the patient closely for development of any right heart failure. Will follow the patient with the surgical list. Discussed with the anesthesiologist, and discussed with Dr. Flores. Formal consult to follow.
[2018-10-11 11:54] LABS: VENOUS BLOOD BASE EXCESS 1.2 mmol/L; VENOUS BLOOD HCO3 23.5 mmol/L (20-32); VENOUS BLOOD PCO2 31.1 mmHg (35-63); VENOUS BLOOD PH 7.5 (7.30-7.42)
[2018-10-11 11:59] LABS: ABSOLUTE EOSINOPHILS # (AUTO) 0.1 10^3/uL (0.0-0.6); ABSOLUTE LYMPHOCYTES (AUTO) 1.1 10^3/uL (0.5-4.7); ABSOLUTE MONOCYTES (AUTO) 0.2 10^3/uL (0.1-1.4); BASOPHILS % (AUTO) 0.8 % (0-2); EOSINOPHILS % (AUTO) 2.1 % (0-6); HEMATOCRIT 22.1 % (36.0-47.0); LYMPHOCYTES % (AUTO) 32.5 % (13-45); MEAN CORPUSCULAR HEMOGLOBIN 32.5 pg (27.0-33.4); MEAN CORPUSCULAR HGB CONC 34.4 g/dL (32.0-36.0); MEAN CORPUSCULAR VOLUME 95 fl (80-97); MONOCYTES % (AUTO) 7.2 % (3-13); PLATELET COUNT 101 10^3/uL (150-450); RED BLOOD COUNT 2.34 10^6/uL (3.72-5.28); RED CELL DISTRIBUTION WIDTH 20.1 % (11.5-14.0); SEGMENTED NEUTROPHILS % (AUTO) 57.4 % (42-78); TOTAL CELLS COUNTED % (AUTO) 100 %; WHITE BLOOD COUNT 3.4 10^3/uL (4.0-10.5)
[2018-10-11 12:04] LABS: ARTERIAL BLOOD BASE EXCESS -0.1 mmol/L; ARTERIAL BLOOD FIO2 60%; ARTERIAL BLOOD H2CO3 1.05 mmol/L (1.05-1.35); ARTERIAL BLOOD HCO3 23.8 mmol/L (20-24); ARTERIAL BLOOD O2 SATURATION 99.7 % (94-98); ARTERIAL BLOOD PCO2 34.8 mmHg (35-45); ARTERIAL BLOOD PH 7.45 (7.35-7.45); ARTERIAL BLOOD PO2 293.6 mmHg (80-100); ARTERIAL BLOOD TOTAL CO2 24.8 mmol/L (21-25)
[2018-10-11 12:05] LABS: INTERNATIONAL RATION (INR) 1.05; PROTHROMBIN TIME 14.3 SEC (11.4-15.4)
[2018-10-11 12:07] LABS: PARTIAL THROMBOPLASTIN TIME 56.1 SEC (23.5-35.8)
[2018-10-11 12:08] LABS: ANION GAP 5 (5-19); BLOOD UREA NITROGEN 15 mg/dL (7-20); CALCIUM 7.6 mg/dL (8.4-10.2); CARBON DIOXIDE 22 mmol/L (22-30); CHLORIDE 110 mmol/L (98-107); GLUCOSE 96 mg/dL (75-110); POTASSIUM 3.3 mmol/L (3.6-5.0); SODIUM 136.6 mmol/L (137-145)
[2018-10-11 12:13] LABS: HEMOGLOBIN 7.6 g/dL (12.0-15.5)
[2018-10-11] MEDS ORDERED: CALCIUM GLUCONATE 1000 MG/10 ML INJ IV ONE (12:18)
[2018-10-11 13:53] LABS: ARTERIAL BLOOD BASE EXCESS -1.6 mmol/L; ARTERIAL BLOOD H2CO3 0.94 mmol/L (1.05-1.35); ARTERIAL BLOOD HCO3 21.6 mmol/L (20-24); ARTERIAL BLOOD O2 SATURATION 99.7 % (94-98); ARTERIAL BLOOD PCO2 31.1 mmHg (35-45); ARTERIAL BLOOD PH 7.46 (7.35-7.45); ARTERIAL BLOOD PO2 289.8 mmHg (80-100); ARTERIAL BLOOD TOTAL CO2 22.5 mmol/L (21-25)
[2018-10-11 13:54] LABS: ARTERIAL BLOOD FIO2 60%
[2018-10-11 13:57] LABS: ABSOLUTE EOSINOPHILS # (AUTO) 0.1 10^3/uL (0.0-0.6); ABSOLUTE LYMPHOCYTES (AUTO) 1.6 10^3/uL (0.5-4.7); ABSOLUTE MONOCYTES (AUTO) 0.3 10^3/uL (0.1-1.4); ABSOLUTE NEUT (AUTO) 4.9 10^3/uL (1.7-8.2); BASOPHILS % (AUTO) 0.2 % (0-2); HEMATOCRIT 29.8 % (36.0-47.0); LYMPHOCYTES % (AUTO) 23.7 % (13-45); MEAN CORPUSCULAR HEMOGLOBIN 32.3 pg (27.0-33.4); MEAN CORPUSCULAR HGB CONC 35.1 g/dL (32.0-36.0); MEAN CORPUSCULAR VOLUME 92 fl (80-97); MONOCYTES % (AUTO) 4.6 % (3-13); RED BLOOD COUNT 3.24 10^6/uL (3.72-5.28); RED CELL DISTRIBUTION WIDTH 17.1 % (11.5-14.0); SEGMENTED NEUTROPHILS % (AUTO) 70.5 % (42-78); TOTAL CELLS COUNTED % (AUTO) 100 %
[2018-10-11 14:13] LABS: ANION GAP 6 (5-19); BLOOD UREA NITROGEN 12 mg/dL (7-20); CALCIUM 7.9 mg/dL (8.4-10.2); CARBON DIOXIDE 21 mmol/L (22-30); CHLORIDE 109 mmol/L (98-107); GLUCOSE 127 mg/dL (75-110); SODIUM 135.8 mmol/L (137-145)
[2018-10-11] MEDS ORDERED: SUCCINYLCHOLINE CHLORIDE INJ 200 MG/10 ML VIAL ONE (14:15)
[2018-10-11] MEDS ORDERED: ROCURONIUM BROMIDE INJ 50 MG/5 ML VIAL IV ONE (14:15)
[2018-10-11] MEDS ORDERED: LIDOCAINE 2% INJ-PF (20 MG/ML) 2 ML AMPUL ONE (14:15)
[2018-10-11] MEDS ORDERED: PHENYLEPHRINE HCL INJ/PF 10 MG/1 ML SDV ONE (14:15)
[2018-10-11 14:24] LABS: HEMOGLOBIN 10.5 g/dL (12.0-15.5); WHITE BLOOD COUNT 6.9 10^3/uL (4.0-10.5)
[2018-10-11 14:25] LABS: POTASSIUM 4.8 mmol/L (3.6-5.0)
[2018-10-11 14:29] LABS: PLATELET COUNT 98 10^3/uL (150-450)
[2018-10-11] MEDS ORDERED: CEFAZOLIN INJ 1 GM VIAL ONE (14:37)
[2018-10-11] MEDS ORDERED: PROMETHAZINE HCL INJ 25 MG/1 ML VIAL IV PRN (14:43)
[2018-10-11] MEDS ORDERED: DIPHENHYDRAMINE HCL 50 MG/ML VIAL IV PRN (14:43)
[2018-10-11] MEDS ORDERED: FENTANYL CITRATE INJ/PF 100 MCG/2 ML AMPUL IV PRN ×3 (14:43)
[2018-10-11] MEDS ORDERED: MEPERIDINE HCL/PF INJ 25 MG/1 ML DISP.SYRIN IV PRN (14:43)
[2018-10-11 15:36] LABS: ABSOLUTE LYMPHOCYTES (AUTO) 0.9 10^3/uL (0.5-4.7); ABSOLUTE MONOCYTES (AUTO) 0.3 10^3/uL (0.1-1.4); ABSOLUTE NEUT (AUTO) 3.5 10^3/uL (1.7-8.2); BASOPHILS % (AUTO) 0.3 % (0-2); EOSINOPHILS % (AUTO) 0.2 % (0-6); HEMATOCRIT 29.3 % (36.0-47.0); HEMOGLOBIN 10.3 g/dL (12.0-15.5); LYMPHOCYTES % (AUTO) 18.6 % (13-45); MEAN CORPUSCULAR HEMOGLOBIN 31.6 pg (27.0-33.4); MEAN CORPUSCULAR VOLUME 90 fl (80-97); MONOCYTES % (AUTO) 5.8 % (3-13); PLATELET COUNT 104 10^3/uL (150-450); RED BLOOD COUNT 3.25 10^6/uL (3.72-5.28); SEGMENTED NEUTROPHILS % (AUTO) 75.1 % (42-78); TOTAL CELLS COUNTED % (AUTO) 100 %; WHITE BLOOD COUNT 4.7 10^3/uL (4.0-10.5)
[2018-10-11 16:02] LABS: ANION GAP 6 (5-19); BLOOD UREA NITROGEN 11 mg/dL (7-20); CARBON DIOXIDE 21 mmol/L (22-30); CHLORIDE 110 mmol/L (98-107); GLUCOSE 125 mg/dL (75-110); POTASSIUM 3.9 mmol/L (3.6-5.0); SODIUM 136.9 mmol/L (137-145)
[2018-10-11] MEDS ORDERED: PROPOFOL 1,000 MG/100 ML INFUS..BTL IV ONE (16:39)
[2018-10-11 16:44] LABS: ARTERIAL BLOOD BASE EXCESS -0.9 mmol/L; ARTERIAL BLOOD FIO2 40%; ARTERIAL BLOOD HCO3 21.9 mmol/L (20-24); ARTERIAL BLOOD O2 SATURATION 99.2 % (94-98); ARTERIAL BLOOD PCO2 29.9 mmHg (35-45); ARTERIAL BLOOD PH 7.48 (7.35-7.45); ARTERIAL BLOOD PO2 165.8 mmHg (80-100); ARTERIAL BLOOD TOTAL CO2 22.8 mmol/L (21-25)
[2018-10-11] MEDS: PROPOFOL 1,000 MG/100 ML INFUS..BTL IV PRN (16:50)
[2018-10-11] MEDS ORDERED: DEXTROSE 40% GEL 15 GM TUBE PO PRN ×2 (16:52)
[2018-10-11] MEDS ORDERED: GLUCAGON,HUMAN RECOMB 1 MG INJ SUBCUT PRN (16:52)
[2018-10-11] MEDS ORDERED: DEXTROSE 50%-WATER 25 GM/50 ML DISP.SYRIN IV PRN ×2 (16:52)
[2018-10-11] MEDS ORDERED: PHARMACY COMMUNICATION ORDER MC NR (17:00)
[2018-10-11] MEDS ORDERED: RINGERS SOLUTION,LACTATED 1,000 ML IV PRN (17:01)
[2018-10-11] MEDS ORDERED: PROPOFOL 1,000 MG/100 ML INFUS..BTL IV PRN (17:02)
[2018-10-11] MEDS: ALBUMIN HUMAN 12.5 GM/50 ML RTUINJ IV SCH ×2 (17:16→17:17)
[2018-10-11] MEDS: MAGNESIUM SULFATE 1 GM/D5W 100 ML IV SCH ×2 (17:22→18:18)
--- NOTE | 2018-10-11 18:30 | RADIOLOGY REPORT (SQ) ---
EXAM DESCRIPTION: CHEST SINGLE VIEW COMPLETED DATE/TIME: 10/11/2018 6:14 pm REASON FOR STUDY: ET tube and Line Placement COMPARISON: 09/05/2017. EXAM PARAMETERS: NUMBER OF VIEWS: One view. TECHNIQUE: Single frontal radiographic view of the chest acquired. RADIATION DOSE: NA LIMITATIONS: None. FINDINGS: LUNGS AND PLEURA: No opacities, masses or pneumothorax. No pleural effusion. MEDIASTINUM AND HILAR STRUCTURES: No masses. Contour normal. HEART AND VASCULAR STRUCTURES: Heart normal in size. Mitral annulus calcification. Normal vasculatu re. BONES: No acute findings. HARDWARE: Tubing on the right side of the neck, unclear if this is external to the patient or a jugul ar catheter. Endotracheal tube with the tip located 2 cm proximal to the alonso. Nasogastric tube w ith the tip in the stomach. Vascular access port. Surgical hardware in the upper abdomen including surgical drain, clips, and skin robin. OTHER: No other significant finding. IMPRESSION: LIFE LINES DESCRIBED IN SATISFACTORY POSITION. NO ACUTE RADIOGRAPHIC FINDING IN THE CHEST. TECHNICAL DOCUMENTATION: JOB ID: [id number] [employer]- All Rights Reserved Reading location - IP/workstation name: [email or web address]
--- NOTE | 2018-10-11 18:31 | RADIOLOGY REPORT (SQ) ---
EXAM DESCRIPTION: KUB/ABDOMEN (SINGLE VIEW) COMPLETED DATE/TIME: 10/11/2018 6:14 pm REASON FOR STUDY: Check Placement of NG Tube C25.9 MALIGNANT NEOPLASM OF PANCREAS, UNSPECIFIED COMPARISON: None. NUMBER OF VIEWS: One view. TECHNIQUE: Supine radiographic image of the upper abdomen acquired. LIMITATIONS: None. FINDINGS: BOWEL GAS PATTERN: Normal bowel gas pattern. No dilated loops. CALCIFICATIONS: No suspicious calcifications. SOFT TISSUES: No gross mass or suggestion of organomegaly. HARDWARE: Nasogastric tube curled in the stomach. Surgical drain, surgical clips, and skin robin. BONES: No acute fracture. No worrisome bone lesions. OTHER: No other significant finding. IMPRESSION: NASOGASTRIC TUBE IN THE STOMACH. SURGICAL HARDWARE IN THE UPPER ABDOMEN WELL. TECHNICAL DOCUMENTATION: JOB ID: [id number] [email or web address]- All Rights Reserved Reading location - IP/workstation name: [email or web address]
--- NOTE | 2018-10-11 19:38 | Operative Report ---
Nonrecallable Operative Report DATE OF SURGERY: 10/11/18 PREOPERATIVE DIAGNOSIS: pancreatic cancer POSTOPERATIVE DIAGNOSIS: pancreatic cancer OPERATION: pancreaticduodenectomy SURGEON: SULY LOPEZ 1ST POULTRY CLEANER: MAYNOR AMIN - 2nd assist mihir ANESTHESIA: GA TISSUE REMOVED OR ALTERED: duodenum/pancrease. COMPLICATIONS: none ESTIMATED BLOOD LOSS: 900cc
--- NOTE | 2018-10-11 21:14 | OPERATIVE REPORT E ---
Operative Report NAME: NARGIS MELENDREZ : 1950 AGE: 68Y DATE OF SURGERY: 10/11/2018 ROOM: 601 PREOPERATIVE DIAGNOSIS: PANCREATIC CANCER. POSTOPERATIVE DIAGNOSIS: PANCREATIC CANCER. OPERATION: DIAGNOSTIC LAPAROSCOPY AND PANCREATICODUODENECTOMY. SURGEON: SULY LOPEZ M.D. SERVICER: Judy Sue PA-C, who was present for the entire procedure for wound retraction and wound closure. SECOND CREW LEADER GLUING: Gaurang López MD PROCEDURE: The patient was brought to the operating room in awake, alert, and stable condition, placed on the operating table in supine position and induced under general anesthesia, and intubated. The abdomen was prepped and draped in the usual sterile manner for the procedure. A Veress needle was placed into the umbilicus and the abdomen was insufflated with 6 liters of CO2 gas. A supraumbilical 5 mm incision was made with a 15 blade, and a 5 mm port placed into the abdominal cavity. Intraabdominal visualization revealed no evidence of a Veress needle or trocar injury. We also visualized the liver, ligament of Treitz, peritoneal surfaces, pelvis, and there was no evidence of any mesenteric spread. We therefore removed the port and reduced the pneumoperitoneum. We then proceeded with the Whipple portion of the procedure. A midline incision was used from just below the umbilicus to the xiphoid process. We carried our dissection down through subcutaneous tissue with Bovie cautery, and the midline fascia was entered. Once we entered the abdominal cavity, the Omni retractor was placed at the upper portion of the table for abdominal wall retraction. We took down the falciform ligament with the LigaSure device all the way to the diaphragm, took down the triangular ligament of the left lobe of the liver and mobilized that medially. Once this was accomplished, we identified the previous surgical anatomy. The patient had a previous gastric bypass. We identified the Campbell limb traversing on top of the colon up toward the gastric pouch. We identified the gastric remnant. She had a previous gastrostomy tube, which was removed prior to this surgery, but the gastric remnant was adhesed to the left upper anterior abdominal wall, which was taken down sharply with Bovie cautery. At this point, there was a non-communication between the gastric remnant and the gastric pouch, and this gastric remnant would be removed with the specimen. We took down the greater curvature of the stomach and the short gastric vessels with the LigaSure device, all the way to the angle of His. We then mobilized the adhesions between the lesser curvature of the stomach and the gastric pouch with blunt and sharp dissection, mobilizing the entire stomach up and away from the previously done gastric pouch and Campbell limb. After we mobilized the body and antrum of the stomach, we continued our dissection inferiorly, identifying the descending portion of the left gastric artery and divided that with the LigaSure device. This completely freed up the gastric remnant. We continued our dissection inferiorly. We then identified the Campbell limb, traced that to the biliary anastomosis in the common channel all the way to the terminal ileum. We took down the biliary limb anastomosis to the Campbell limb because this would also be removed with the Whipple specimen. We therefore came across the small bowel just at the biliary to alimentary anastomosis with one firing of the MERLE stapler with a 55 mm load and blue robin. This divided the biliary anastomosis to the alimentary anastomosis. We took down the mesentery with Bovie cautery and LigaSure device. This completely freed the alimentary limb away from the biliary limb. After this was accomplished, we turned our attention to the right upper quadrant. The patient had a previously placed common bile duct stent, and this was easily palpable in the common bile duct. We performed a wide Nikolas maneuver with Bovie cautery to mobilize the duodenum and the head of the pancreas. I could now palpate the tumor in the head of the pancreas. We then turned attention to the neck of the pancreas and the body. Now that we had mobilized the gastric remnant away from the pancreas, we could identify the hepatic artery and trace that to the gastroduodenal artery. Once we freed up the gastroduodenal artery, we doubly ligated it and divided it. We then dissected the top of the pancreas away from the portal vein and identified the portal vein traversing underneath the neck of the pancreas. I could easily insert my finger between the portal vein and the neck of the pancreas, creating a path between that, and then inferiorly identifying the superior mesenteric vein. We then used a TA55 stapler, placed it underneath the neck of the pancreas, closed it on the specimen side and divided the pancreas neck. After dividing the neck of the pancreas, I identified the pancreatic duct and cannulated with a pediatric feeding tube, which will be used as a pancreatic duct stent. The superior and inferior pancreaticoduodenal artery were oversewn with [id number] placed 2-0 silk suture. We then turned attention to the left side of the superior mesenteric vessels, identified the biliary limb that we had previously divided from the alimentary limb, and mobilized the mesentery with the LigaSure device. Once this was done, we passed it underneath the superior mesenteric vessels and brought it out the right side, taking down the ligament of Treitz. Once this was accomplished, we then continued our dissection along the neck of the pancreas, mobilizing the portal vein away from the uncinate process and noting that the patient had a fairly large tumor in the uncinate process. Once we mobilized the portal vein away from the neck of the pancreas, I was able to identify the superior mesenteric artery and the edge of the uncinate process. We created a plane between those 2 structures with the LigaSure device and continued our dissection cephalad, dividing the uncinate process from the lymphatic tissue and continuing this up to the distal bile duct. We then incised the peritoneum over the delta hepatis and dissected the common hepatic artery as well as the bile duct away from the portal vein, and slung the bile duct with umbilical tape and used that for traction. Once the pancreas head was freed away from the portal vein, we came across the distal bile duct with Metzenbaum scissors, identifying a previously placed self-expanding metal stent which was removed from the proximal bile duct. The distal portion of the stent remained with the specimen. The specimen was then able to be removed. It was sent down to Pathology. Pathology revealed that the staple line, which would be the margin on the pancreatic neck, was positive for cancer. I therefore excised another sliver of pancreas from the neck of the pancreas with a 10 blade and sent that down for a second look, and a second frozen section. That proved to have negative margins. I then cannulated the pancreatic duct with an 8-Qatari pediatric feeding tube, using that as a stent, and resewed the superior and inferior pancreaticoduodenal arteries with a neszlw-hr-whica placed 2-0 silk suture. We then turned attention to the small bowel, and identified the alimentary limb. I picked a point about 30 cm from the gastrojejunostomy and divided the alimentary limb with one firing of the Endo-MERLE stapler with a blue load. We then created a new Campbell limb for the pancreas and bile duct anastomosis, and anastomosed the proximal alimentary limb to the distal alimentary limb with an Endo-MERLE stapler, and we closed the staple holes transversely with a TA55 stapler and closed the mesenteric defect with a running 3-0 Maxon suture. This essentially allowed us to have a new Campbell limb. This was brought up posteriorly around the superior mesenteric vessels to lie in the right upper quadrant next to the pancreas and bile duct. I then created a pancreaticojejunostomy between that limb and the pancreas over an 8-Qatari pediatric feeding tube. The posterior layer was sewn with interrupted 2-0 silk. The pancreatic duct was sewn with interrupted 5-0 Maxon and the anterior pancreatic layer was sewn with interrupted 2-0 silk. Similarly, we performed a hepaticojejunostomy just distal to the pancreaticojejunostomy with interrupted 4-0 Maxon suture. Once this was completed, we picked a point distal to the biliary to alimentary anastomosis, and used this for the jejunostomy feeding tube. Using a small 2-0 Chromic suture, we made a small purse string suture placement in the jejunum, and in the center of that we made an enterotomy with Bovie cautery and placed a Dobbhoff type feeding tube into that and reached it down the small bowel. We brought that through a stab wound in the right abdominal wall. We performed a Witzel maneuver between the small bowel and the jejunostomy tube, and then tacked that to the anterior abdominal wall with interrupted 2-0 silk sutures. Once this was completed, we copiously irrigated the abdominal cavity with normal saline. We checked our anastomoses for hemostasis and it was intact. We then sprayed the hepaticojejunostomy as well as the pancreaticojejunostomy with TISSEEL tissue sealant. We placed a Miller-Carlton drain in the epigastrium and right upper quadrant next to both these anastomoses, brought it out through a stab wound in the left abdominal wall, and then closed the midline fascia with a running double looped 0 Maxon suture, and closed the skin with standard skin clips, which completed the procedure. Estimated blood loss was 900 mL. Sponge and needle counts were correct x2. The patient received 4 units of packed red cells and 4 units of fresh frozen plasma during the procedure. She was then returned to the intensive care unit in stable condition. DICTATING PHYSICIAN: SULY LOPEZ M.D. [id number] PHY#: [id number] ID: [id number] JOB#: [id number] ACCT: [id number] cc:SULY LOPEZ M.D. >
[2018-10-11] MEDS ORDERED: MORPHINE SULFATE 10 MG/ML INJ ONE (23:26)
[2018-10-11] MEDS: FAMOTIDINE INJ/PF 20 MG/2 ML SDV IV SCH (23:32)
[2018-10-12] MEDS: HEPARIN SOD (PORCINE) 5,000 UNIT/ML 1 ML SYRINGE SUBCUT SCH ×4 (00:53→22:20)
[2018-10-12] MEDS ORDERED: NORMAL SALINE 1000 ML 1,000 ML IV ONE (02:30)
[2018-10-12] MEDS: RIDER IV SCH (03:24)
[2018-10-12] MEDS: POTASSI CL 20 MEQ/50 ML IV SCH (03:24)
[2018-10-12] MEDS: MORPHINE SULFATE 10 MG/ML INJ IV PRN ×8 (03:41→22:29)
[2018-10-12] MEDS: PROPOFOL 1,000 MG/100 ML INFUS..BTL IV PRN (03:49)
[2018-10-12 04:58] LABS: ARTERIAL BLOOD BASE EXCESS 0.6 mmol/L; ARTERIAL BLOOD H2CO3 1.08 mmol/L (1.05-1.35); ARTERIAL BLOOD HCO3 24.3 mmol/L (20-24); ARTERIAL BLOOD O2 SATURATION 98.8 % (94-98); ARTERIAL BLOOD PH 7.45 (7.35-7.45); ARTERIAL BLOOD PO2 136.9 mmHg (80-100); ARTERIAL BLOOD TOTAL CO2 25.5 mmol/L (21-25)
[2018-10-12 04:59] LABS: ARTERIAL BLOOD FIO2 30%
[2018-10-12 05:12] LABS: HEMATOCRIT 31.2 % (36.0-47.0); HEMOGLOBIN 10.8 g/dL (12.0-15.5); MEAN CORPUSCULAR HEMOGLOBIN 31.4 pg (27.0-33.4); MEAN CORPUSCULAR HGB CONC 34.7 g/dL (32.0-36.0); MEAN CORPUSCULAR VOLUME 91 fl (80-97); PLATELET COUNT 114 10^3/uL (150-450); RED BLOOD COUNT 3.44 10^6/uL (3.72-5.28)
[2018-10-12 05:44] LABS: ABSOLUTE LYMPHOCYTES# (MANUAL) 0.5 10^3/uL (0.5-4.7); ABSOLUTE MONOCYTES # (MANUAL) 0.6 10^3/uL (0.1-1.4); ABSOLUTE NEUTROPHILS# (MANUAL) 8.9 10^3/uL (1.7-8.2); ANISOCYTOSIS 1+; BAND NEUTROPHILS % (MANUAL) 7 % (3-5); BASOPHILS % (MANUAL) 0 % (0-2); EOSINOPHILS % (MANUAL) 0 % (0-6); HYPOCHROMASIA 2+; LYMPHOCYTES % (MANUAL) 5 % (13-45); MONOCYTES % (MANUAL) 6 % (3-13); PLATELET COMMENT ADEQUATE; SEGMENTED NEUTROPHILS % (MAN) 82 % (42-78); TOTAL CELLS COUNTED 100
[2018-10-12 06:00] LABS: ALANINE AMINOTRANSFERASE 89 U/L (9-52); ALKALINE PHOSPHATASE 77 U/L (38-126); ANION GAP 5 (5-19); ASPARTATE AMINO TRANSFERASE 163 U/L (14-36); BILIRUBIN,DIRECT 0.4 mg/dL (0.0-0.4); BILIRUBIN,TOTAL 0.6 mg/dL (0.2-1.3); BLOOD UREA NITROGEN 10 mg/dL (7-20); CALCIUM 7.6 mg/dL (8.4-10.2); CARBON DIOXIDE 21 mmol/L (22-30); CHLORIDE 109 mmol/L (98-107); GLUCOSE 188 mg/dL (75-110); TOTAL PROTEIN 4.1 g/dL (6.3-8.2)
[2018-10-12 06:01] LABS: LIPASE < 10.0 U/L (23-300)
--- NOTE | 2018-10-12 07:04 | RADIOLOGY REPORT (SQ) ---
EXAM DESCRIPTION: X-ray single view chest. CLINICAL HISTORY: 68 years Female, intubated COMPARISON: 10/11/2018 and 09/05/2018 TECHNIQUE: Single portable x-ray view of the chest performed on 10/12/2018 at 6:09 AM FINDINGS: The lungs are relatively well expanded and are grossly clear. There is no evidence of a pneumothorax. The cardiac silhouette is normal in size and configuration. There are extensive mitral valve annular calcifications. The mediastinal contours are normal. No acute osseous abnormality is identified. No focal soft tissue abnormalities are seen. There are postsurgical changes in the upper abdomen. Lines and tubes: The endotracheal tube, feeding tube and right IJ and left subclavian central venous catheters are grossly stable. IMPRESSION: 1. No definite acute intrathoracic disease or significant change when compared to the prior studies. 2. Prominent mitral valve annular calcifications. 3. Grossly stable life support lines and tubes.
--- NOTE | 2018-10-12 07:23 | PDOC PROGRESS REPORT ---
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, UNSPECIFIED Physical Exam Vital Signs: Temp Pulse Resp BP Pulse Ox 100.0 F 100 14 149/78 H 100 10/12/18 05:23 10/12/18 06:39 10/12/18 05:00 10/12/18 06:39 10/12/18 06:39 Intake & Output 10/11/18 10/12/18 10/13/18 06:59 06:59 06:59 Intake Total 0 368 Output Total 845 Balance 0 -477 Weight 71.6 kg General appearance: PRESENT: no acute distress Eye exam: PRESENT: EOMI Mouth exam: PRESENT: moist Neck exam: PRESENT: full ROM Respiratory exam: PRESENT: clear to auscultation valarie Cardiovascular exam: PRESENT: RRR Pulses: PRESENT: normal radial pulses, normal femoral pulses Vascular exam: PRESENT: normal capillary refill GI/Abdominal exam: PRESENT: soft - jaycee serous Rectal exam: PRESENT: deferred Musculoskeletal exam: PRESENT: full ROM Neurological exam: PRESENT: alert Skin exam: PRESENT: dry Results Laboratory Results: 10/12/18 04:35 10/12/18 04:35 10/04/18 10/11/18 10/11/18 10:26 11:35 11:35 WBC RBC Hgb Hct MCV MCH MCHC RDW Plt Count Seg Neutrophils % Lymphocytes % Monocytes % Eosinophils % Basophils % Absolute Neutrophils Absolute Lymphocytes Absolute Monocytes Absolute Eosinophils Absolute Basophils Carbonic Acid HCO3/H2CO3 Ratio ABG pH ABG pCO2 ABG pO2 ABG HCO3 ABG O2 Saturation ABG Base Excess VBG pH 7.50 H VBG pCO2 31.1 L VBG HCO3 23.5 VBG Base Excess 1.2 FiO2 Sodium Cancelled Potassium Cancelled Chloride Cancelled Carbon Dioxide Cancelled Anion Gap Cancelled BUN Cancelled Creatinine Cancelled Est GFR ( Amer) Cancelled Est GFR (Non-Af Amer) Cancelled Glucose Cancelled Lactic Acid Calcium Cancelled Magnesium Total Bilirubin AST ALT Alkaline Phosphatase Total Protein Albumin Triglycerides Lipase Blood Type B POSITIVE Antibody Screen NEGATIVE 10/11/18 10/11/18 10/11/18 11:35 11:35 11:35 WBC 3.4 L RBC 2.34 L Hgb 7.6 L Hct 22.1 L MCV 95 MCH 32.5 MCHC 34.4 RDW 20.1 H Plt Count 101 L Seg Neutrophils % 57.4 Lymphocytes % 32.5 Monocytes % 7.2 Eosinophils % 2.1 Basophils % 0.8 Absolute Neutrophils 2.0 Absolute Lymphocytes 1.1 Absolute Monocytes 0.2 Absolute Eosinophils 0.1 Absolute Basophils 0.0 Carbonic Acid HCO3/H2CO3 Ratio ABG pH ABG pCO2 ABG pO2 ABG HCO3 ABG O2 Saturation ABG Base Excess VBG pH VBG pCO2 VBG HCO3 VBG Base Excess FiO2 Sodium 136.6 L Potassium 3.3 L Chloride 110 H Carbon Dioxide 22 Anion Gap 5 BUN 15 Creatinine 0.40 L Est GFR ( Amer) > 60 Est GFR (Non-Af Amer) > 60 Glucose 96 Lactic Acid 1.3 Calcium 7.6 L Magnesium Total Bilirubin AST ALT Alkaline Phosphatase Total Protein Albumin Triglycerides Lipase Blood Type Antibody Screen 10/11/18 10/11/18 10/11/18 11:50 13:37 13:37 WBC 6.9 D RBC 3.24 L Hgb 10.5 L D Hct 29.8 L MCV 92 MCH 32.3 MCHC 35.1 RDW 17.1 H Plt Count 98 L Seg Neutrophils % 70.5 Lymphocytes % 23.7 Monocytes % 4.6 Eosinophils % 1.0 Basophils % 0.2 Absolute Neutrophils 4.9 Absolute Lymphocytes 1.6 Absolute Monocytes 0.3 Absolute Eosinophils 0.1 Absolute Basophils 0.0 Carbonic Acid 1.05 HCO3/H2CO3 Ratio 22:1 ABG pH 7.45 ABG pCO2 34.8 L ABG pO2 293.6 H ABG HCO3 23.8 ABG O2 Saturation 99.7 H ABG Base Excess -0.1 VBG pH VBG pCO2 VBG HCO3 VBG Base Excess FiO2 60% Sodium 135.8 L Potassium 4.8 D Chloride 109 H Carbon Dioxide 21 L Anion Gap 6 BUN 12 Creatinine 0.39 L Est GFR ( Amer) > 60 Est GFR (Non-Af Amer) > 60 Glucose 127 H Lactic Acid Calcium 7.9 L Magnesium Total Bilirubin AST ALT Alkaline Phosphatase Total Protein Albumin Triglycerides Lipase Blood Type Antibody Screen 10/11/18 10/11/18 10/11/18 13:37 15:23 15:23 WBC 4.7 RBC 3.25 L Hgb 10.3 L Hct 29.3 L MCV 90 MCH 31.6 MCHC 35.0 RDW 17.0 H Plt Count 104 L Seg Neutrophils % 75.1 Lymphocytes % 18.6 Monocytes % 5.8 Eosinophils % 0.2 Basophils % 0.3 Absolute Neutrophils 3.5 Absolute Lymphocytes 0.9 Absolute Monocytes 0.3 Absolute Eosinophils 0.0 Absolute Basophils 0.0 Carbonic Acid 0.94 L HCO3/H2CO3 Ratio 22:1 ABG pH 7.46 H ABG pCO2 31.1 L ABG pO2 289.8 H ABG HCO3 21.6 ABG O2 Saturation 99.7 H ABG Base Excess -1.6 VBG pH VBG pCO2 VBG HCO3 VBG Base Excess FiO2 60% Sodium 136.9 L Potassium 3.9 Chloride 110 H Carbon Dioxide 21 L Anion Gap 6 BUN 11 Creatinine 0.37 L Est GFR ( Amer) > 60 Est GFR (Non-Af Amer) > 60 Glucose 125 H Lactic Acid Calcium 8.0 L Magnesium 0.8 L* Total Bilirubin AST ALT Alkaline Phosphatase Total Protein Albumin Triglycerides Lipase Blood Type Antibody Screen 10/11/18 10/11/18 10/12/18 15:23 16:25 04:35 WBC 10.0 D RBC 3.44 L Hgb 10.8 L Hct 31.2 L MCV 91 MCH 31.4 MCHC 34.7 RDW 18.0 H Plt Count 114 L Seg Neutrophils % Not Reportable Lymphocytes % Not Reportable Monocytes % Not Reportable Eosinophils % Not Reportable Basophils % Not Reportable Absolute Neutrophils Not Reportable Absolute Lymphocytes Not Reportable Absolute Monocytes Not Reportable Absolute Eosinophils Not Reportable Absolute Basophils Not Reportable Carbonic Acid 0.90 L HCO3/H2CO3 Ratio 24:1 ABG pH 7.48 H ABG pCO2 29.9 L ABG pO2 165.8 H ABG HCO3 21.9 ABG O2 Saturation 99.2 H ABG Base Excess -0.9 VBG pH VBG pCO2 VBG HCO3 VBG Base Excess FiO2 40% Sodium Potassium Chloride Carbon Dioxide Anion Gap BUN Creatinine Est GFR ( Amer) Est GFR (Non-Af Amer) Glucose Lactic Acid Calcium Magnesium Total Bilirubin AST ALT Alkaline Phosphatase Total Protein Albumin Triglycerides 65 Lipase Blood Type Antibody Screen 10/12/18 10/12/18 04:35 04:35 WBC RBC Hgb Hct MCV MCH MCHC RDW Plt Count Seg Neutrophils % Lymphocytes % Monocytes % Eosinophils % Basophils % Absolute Neutrophils Absolute Lymphocytes Absolute Monocytes Absolute Eosinophils Absolute Basophils Carbonic Acid 1.08 HCO3/H2CO3 Ratio 22:1 ABG pH 7.45 ABG pCO2 36.0 ABG pO2 136.9 H ABG HCO3 24.3 H ABG O2 Saturation 98.8 H ABG Base Excess 0.6 VBG pH VBG pCO2 VBG HCO3 VBG Base Excess FiO2 30% Sodium 135.0 L Potassium 4.0 Chloride 109 H Carbon Dioxide 21 L Anion Gap 5 BUN 10 Creatinine 0.42 L Est GFR ( Amer) > 60 Est GFR (Non-Af Amer) > 60 Glucose 188 H Lactic Acid Calcium 7.6 L Magnesium 1.3 L Total Bilirubin 0.6 AST 163 H ALT 89 H Alkaline Phosphatase 77 Total Protein 4.1 L Albumin 2.0 L Triglycerides Lipase < 10.0 L Blood Type Antibody Screen Impressions: KUB X-Ray 10/11/18 17:02 IMPRESSION: NASOGASTRIC TUBE IN THE STOMACH. SURGICAL HARDWARE IN THE UPPER ABDOMEN WELL. Chest X-Ray 10/12/18 06:00 IMPRESSION: 1. No definite acute intrathoracic disease or significant change when compared to the prior studies. 2. Prominent mitral valve annular calcifications. 3. Grossly stable life support lines and tubes. Assessment & Plan - Plan Summary Plan Summary: pod #1 whipple stable overnight jaycee approx 400cc sl decreasd urine op this am labs reviewed h/h stable wbc wnl plan iv bolus this am for decreased urine op extubation
[2018-10-12] MEDS: MAGNESIUM SULFATE/D5W 1 GM/100 ML RTUPB IV SCH ×2 (08:29→10:07)
[2018-10-12] MEDS ORDERED: CEFAZOLIN 1 GM/D5W RTU 1 GM/50 ML RTUPB IV ONE ×2 (08:30→10:30)
[2018-10-12] MEDS: METRONIDAZOLE 500 MG/NS RTU 500 MG/100 ML RTUPB IV SCH ×2 (10:05→18:12)
[2018-10-12] MEDS: FAMOTIDINE INJ/PF 20 MG/2 ML SDV IV SCH ×2 (10:10→22:21)
[2018-10-12] MEDS: NORMAL SALINE 1000 ML 1,000 ML IV PRN ×2 (10:30→20:13)
[2018-10-12] MEDS: CEFAZOLIN 1 GM/D5W RTU 1 GM/50 ML RTUPB IV SCH ×2 (13:56→22:20)
[2018-10-12] MEDS ORDERED: MORPHINE SULFATE 10 MG/ML INJ IV SCH (14:00)
[2018-10-12] MEDS ORDERED: ALBUMIN HUMAN 5% INJ 25 GM/500 ML BOTTLE IV ONE (15:00)
--- NOTE | 2018-10-12 15:40 | OPERATIVE REPORT E ---
Operative Report NAME: NARGIS MELENDREZ : 1950 AGE: 68Y DATE OF SURGERY: 10/11/2018 ROOM: 601 PREOPERATIVE DIAGNOSIS: PANCREATIC CANCER. POSTOPERATIVE DIAGNOSIS: PANCREATIC CANCER. OPERATION: Pancreaticoduodenectomy. SURGEON: SULY LOPEZ M.D. STATIONARY ENGINEER: MIRNA Mosquera, who was there for the entire case for wound retraction, clerical assistant duties, and wound closure. SECOND BLAST FURNACE CHECKER: Gaurang López M.D. DETAILS OF PROCEDURE: The patient was brought to the operating room in an awake, alert, and stable condition. Placed on the operating room table in a supine position, induced under general anesthesia, intubated. A right internal jugular vein Cordis introducer was placed after appropriate timeout for IV access during the operation. The area along the anterior border of the sternocleidomastoid muscle was prepped and then using a 16 gauge needle the right internal jugular vein was punctured and Seldinger technique was utilized to pass a wire through the needle into the superior vena cava, over that the Cordis introducer was placed and it was fixed to the skin with 2-0 Silk suture. At the completion of that portion of the procedure we then prepped and draped the abdomen in the usual sterile fashion. Prior to incision the previously placed gastrostomy tube was removed and the exit site was closed with a [id number] placed 0 Silk suture. We then made a midline incision from the xyphoid to just below the umbilicus. We carried our dissection down through subcutaneous tissue with Bovie cautery. The midline fascia was entered. DICTATION ENDED. DICTATING PHYSICIAN: SULY LOPEZ M.D. [id number] PHY#: [id number] ID: [id number] JOB#: [id number] ACCT: [id number] cc:SULY LOPEZ M.D. >
[2018-10-12] MEDS: METOPROLOL TARTRATE PF/INJ 5 MG/5 ML SDV IV SCH ×2 (16:06→22:19)
[2018-10-12] MEDS ORDERED: FUROSEMIDE INJ/PF 20 MG/2 ML SDV IV ONE (17:15)
[2018-10-12] MEDS ORDERED: FUROSEMIDE INJ/PF 20 MG/2 ML SDV ONE (17:17)
--- NOTE | 2018-10-12 23:11 | Progress Note ---
Provider Note Provider Note: CARDIOLOGY PROGRESS NOTE by 10/12/2018. SUBJECTIVE: The patient has been extubated. She earlier was on a face tent now she is on room air. Denies any chest pain or discomfort. There is no shortness of breath there is no PND orthopnea. Her urine output is slightly diminished. She does not appear to be having mild anasarca. This may be due to third spacing. There is no arrhythmia seen on the monitor. There is no PND orthopnea. There is no shortness of breath. There is no TIA CVA symptoms. OBJECTIVE: The patient appears to be mildly overweight. In no acute distress. She is well-groomed. Selected Entries 10/12/18 16:00 Temperature 99.3 F Temperature Core Source Pulse Rate 100 Respiratory 8 L Rate Blood Pressure 146/64 H [Left] Blood Pressure 91 Mean [Left] O2 Sat by Pulse 95 Oximetry Oxygen Delivery Room Air Method ( includes room air) HEAD: Is atraumatic normocephalic. EYES: Pupils are equal round regular reactive to light and accommodation. EARS: Tympanic membranes are intact. EXTERNAL AUDITORY CANALS ARE CLEAR. Nose: There is no deviated nasal septum. There is no inflammation of the nasal mucous membrane. MOUTH: Mucous membranes of mouth are moist. Tongue is moist. There is no ulcers. There is no bleeding from the gums. THROAT: There is no redness of the oropharynx. There is no exudates. THROAT: There is no redness of the oropharynx. There is no SKIN: There is no skin rashes. There is no skin lesions. There is no petechia or ecchymosis. NECK: Is supple. There is no JVD. Carotids are equal there is no bruits. THERE IS NO LYMPHADENOPATHY. THERE IS NO GOITER. There is no accessory muscle respiration use. TRACHEA is central. LUNGS: Is clear to auscultation percussion. HEART: S1-S2 is heard. There is no S3 gallop. There is no S4 gallop. There is systolic murmur left sternal border and the apex there is no rub. There is murmur of mitral regurgitation present. There is also tricuspid regurgitation present. ABDOMEN: Is soft. Dressing is dry bowel sounds are absent. EXTREMITIES femorals are diminished there is no femoral bruits. Leg pulses are diminished. There is mild anasarca. There is no DVT or cellulitis. There is no calf tenderness. SIDING MECHANIC the patient is conscious awake alert oriented x3 with no focal deficits. PSYCHIATRIC the patient judgment insight are intact her affect is normal. Labs- All tests 24 hr 10/04/18 10/12/18 10/12/18 10:26 04:35 04:35 WBC 10.0 D RBC 3.44 L Hgb 10.8 L Hct 31.2 L MCV 91 MCH 31.4 MCHC 34.7 RDW 18.0 H Plt Count 114 L Total Counted 100 Seg Neutrophils % Not Reportable Seg Neuts % (Manual) 82 H Band Neutrophils % 7 H Lymphocytes % Not Reportable Lymphocytes % (Manual) 5 L Monocytes % Not Reportable Monocytes % (Manual) 6 Eosinophils % Not Reportable Eosinophils % (Manual) 0 Basophils % Not Reportable Basophils % (Manual) 0 Absolute Neutrophils Not Reportable Abs Neuts (Manual) 8.9 H Absolute Lymphocytes Not Reportable Abs Lymphs (Manual) 0.5 Absolute Monocytes Not Reportable Abs Monocytes (Manual) 0.6 Absolute Eosinophils Not Reportable Absolute Eos (Manual) 0.0 Absolute Basophils Not Reportable Abs Basophils (Manual) 0.0 Platelet Comment ADEQUATE Hypochromasia 2+ Anisocytosis 1+ Carbonic Acid HCO3/H2CO3 Ratio ABG pH ABG pCO2 ABG pO2 ABG HCO3 ABG Total CO2 ABG O2 Saturation ABG Base Excess FiO2 Sodium 135.0 L Potassium 4.0 Chloride 109 H Carbon Dioxide 21 L Anion Gap 5 BUN 10 Creatinine 0.42 L Est GFR ( Amer) > 60 Est GFR (Non-Af Amer) > 60 Glucose 188 H Calcium 7.6 L Magnesium 1.3 L Total Bilirubin 0.6 Direct Bilirubin 0.4 Neonat Total Bilirubin Not Reportable Neonat Direct Bilirubin Not Reportable Neonat Indirect Bili Not Reportable AST 163 H ALT 89 H Alkaline Phosphatase 77 Total Protein 4.1 L Albumin 2.0 L Lipase < 10.0 L Blood Type B POSITIVE Blood Type Confirm B POSITIVE Antibody Screen NEGATIVE Crossmatch See Detail KUB X-Ray 10/11/18 17:02 IMPRESSION: NASOGASTRIC TUBE IN THE STOMACH. SURGICAL HARDWARE IN THE UPPER ABDOMEN WELL. Chest X-Ray 10/11/18 17:51 IMPRESSION: LIFE LINES DESCRIBED IN SATISFACTORY POSITION. NO ACUTE RADIOGRAPHIC FINDING IN THE CHEST. Chest X-Ray 10/12/18 06:00 IMPRESSION: 1. No definite acute intrathoracic disease or significant change when compared to the prior studies. 2. Prominent mitral valve annular calcifications. 3. Grossly stable life support lines and tubes. Impression/RECOMMENDATION: 1. Asymptomatic mitral valve disorder. Patient has mild mitral stenosis and moderate mitral regurgitation by echocardiography. 2. Pancreatic cancer f status post Whipple surgical procedure. 3. Hypertension: Well controlled 4. Diabetes mellitus. The patient's echocardiogram shows normal left ventricular systolic function, with mild left ventricular diastolic dysfunction. There is aortic sclerosis without stenosis. There is no aortic regurgitation. There is mild tricuspid regurgitation, with mild pulmonary hypertension. There is heavy mitral annular calcification with mild mitral stenosis, and moderate mitral regurgitation. Moderate left atrial enlargement. Postoperative continue IV fluids. We will give a small dose of Lasix as the patient's urine output is decreased. Cardiac status stable. Will follow.
[2018-10-13] MEDS: MORPHINE SULFATE 10 MG/ML INJ IV PRN ×4 (01:37→20:46)
[2018-10-13] MEDS: METRONIDAZOLE 500 MG/NS RTU 500 MG/100 ML RTUPB IV SCH ×3 (01:38→18:09)
[2018-10-13] MEDS: METOPROLOL TARTRATE PF/INJ 5 MG/5 ML SDV IV SCH ×4 (03:14→20:46)
[2018-10-13] MEDS: NORMAL SALINE 1000 ML 1,000 ML IV PRN ×3 (04:57→22:48)
[2018-10-13] MEDS: CEFAZOLIN 1 GM/D5W RTU 1 GM/50 ML RTUPB IV SCH ×3 (05:31→22:47)
[2018-10-13] MEDS: HEPARIN SOD (PORCINE) 5,000 UNIT/ML 1 ML SYRINGE SUBCUT SCH ×3 (05:32→22:32)
--- NOTE | 2018-10-13 09:30 | PDOC PROGRESS REPORT ---
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, UNSPECIFIED Physical Exam Vital Signs: Temp Pulse Resp BP Pulse Ox 99.7 F 96 16 142/64 H 100 10/13/18 07:57 10/13/18 07:57 10/13/18 07:57 10/13/18 07:57 10/13/18 07:57 Intake & Output 10/12/18 10/13/18 10/14/18 06:59 06:59 06:59 Intake Total 368 4126 Output Total 845 2885 125 Balance -477 1241 -125 Weight 71.6 kg 77.1 kg General appearance: PRESENT: no acute distress Head exam: PRESENT: normocephalic Eye exam: PRESENT: EOMI Mouth exam: PRESENT: moist Neck exam: PRESENT: full ROM Respiratory exam: PRESENT: clear to auscultation valarie Cardiovascular exam: PRESENT: RRR Pulses: PRESENT: normal carotid pulses, normal radial pulses, normal femoral pulses GI/Abdominal exam: PRESENT: soft - incision dry. jaycee serous Rectal exam: PRESENT: deferred Gentrourinary exam: PRESENT: urethral discharge Extremities exam: PRESENT: full ROM Musculoskeletal exam: PRESENT: full ROM Neurological exam: PRESENT: alert, awake, oriented to person, oriented to time, oriented to situation Psychiatric exam: PRESENT: appropriate affect Skin exam: PRESENT: dry Results Laboratory Results: 10/12/18 04:35 10/12/18 04:35 10/04/18 10:26 Blood Type B POSITIVE Antibody Screen NEGATIVE Impressions: KUB X-Ray 10/11/18 17:02 IMPRESSION: NASOGASTRIC TUBE IN THE STOMACH. SURGICAL HARDWARE IN THE UPPER ABDOMEN WELL. Assessment & Plan - Plan Summary Plan Summary: pod 2 s/p whipple doing well min c/o incisional pain urine op marginal, however good response yesterday with lasix will cont iv fluids will bolus with colloid as necessary out of bed today ice chips dc art line will start tube feeds in am.
--- NOTE | 2018-10-13 10:02 | RADIOLOGY REPORT (SQ) ---
EXAM DESCRIPTION: CHEST SINGLE VIEW COMPLETED DATE/TIME: 10/13/2018 6:32 am REASON FOR STUDY: intubated COMPARISON: Previous day. NUMBER OF VIEWS: One view. TECHNIQUE: Single frontal radiographic image of the chest acquired. LIMITATIONS: None. FINDINGS: LUNGS AND PLEURA: Increasing airspace opacity left lung. No pneumothorax. MEDIASTINUM AND HEART: Stable heart size and mediastinal structures. SUPPORT DEVICES: Interval removal of endotracheal tube. BONY STRUCTURES: No acute findings. HARDWARE: None. OTHER: No other significant finding. IMPRESSION: Increasing atelectasis in the left lung status post extubation. No pneumothorax. Reading location - IP/workstation name: [email or web address]
[2018-10-13] MEDS: FAMOTIDINE INJ/PF 20 MG/2 ML SDV IV SCH ×2 (10:11→22:47)
[2018-10-13 12:18] LABS: ABSOLUTE EOSINOPHILS # (AUTO) 0.1 10^3/uL (0.0-0.6); ABSOLUTE LYMPHOCYTES (AUTO) 1.4 10^3/uL (0.5-4.7); ABSOLUTE MONOCYTES (AUTO) 0.5 10^3/uL (0.1-1.4); ABSOLUTE NEUT (AUTO) 9.2 10^3/uL (1.7-8.2); BASOPHILS % (AUTO) 0.3 % (0-2); EOSINOPHILS % (AUTO) 0.6 % (0-6); HEMOGLOBIN 9.7 g/dL (12.0-15.5); LYMPHOCYTES % (AUTO) 12.5 % (13-45); MEAN CORPUSCULAR HEMOGLOBIN 31.8 pg (27.0-33.4); MEAN CORPUSCULAR HGB CONC 34.7 g/dL (32.0-36.0); MEAN CORPUSCULAR VOLUME 92 fl (80-97); MONOCYTES % (AUTO) 4.5 % (3-13); RED BLOOD COUNT 3.05 10^6/uL (3.72-5.28); RED CELL DISTRIBUTION WIDTH 19.1 % (11.5-14.0); SEGMENTED NEUTROPHILS % (AUTO) 82.1 % (42-78); TOTAL CELLS COUNTED % (AUTO) 100 %; WHITE BLOOD COUNT 11.2 10^3/uL (4.0-10.5)
[2018-10-13 12:26] LABS: ALANINE AMINOTRANSFERASE 50 U/L (9-52); ALBUMIN 1.9 g/dL (3.5-5.0); ALKALINE PHOSPHATASE 73 U/L (38-126); ASPARTATE AMINO TRANSFERASE 46 U/L (14-36); BILIRUBIN,DIRECT 0.3 mg/dL (0.0-0.4); BILIRUBIN,TOTAL 0.4 mg/dL (0.2-1.3); BLOOD UREA NITROGEN 8 mg/dL (7-20); CALCIUM 7.3 mg/dL (8.4-10.2); CHLORIDE 112 mmol/L (98-107); GLUCOSE 109 mg/dL (75-110); POTASSIUM 3.7 mmol/L (3.6-5.0)
[2018-10-13 12:31] LABS: PLATELET COUNT 97 10^3/uL (150-450)
[2018-10-13 12:32] LABS: ANION GAP 1 (5-19); CARBON DIOXIDE 25 mmol/L (22-30)
[2018-10-13] MEDS: ALBUMIN HUMAN 5% INJ 25 GM/500 ML BOTTLE IV SCH ×2 (13:25→22:45)
--- NOTE | 2018-10-13 19:52 | Progress Note ---
Provider Note Provider Note: CARDIOLOGY PROGRESS NOTE by Dr. Rissa Jean on 10/13/2018. OBJECTIVE: The patient denies any chest pain or discomfort. There is no shortness of breath. There is no arrhythmia seen on the monitor. The patient's urine output is picked up. She has not passed any flatus. Her abdominal pain due to the incision is well controlled with medication. There is no nausea vomiting. The patient still has an NG tube in. There is no TIA CVA symptoms. PHYSICAL EXAMINATION: The patient mildly obese. She is in no acute distress. She is well-groomed. Selected Entries 10/13/18 12:00 Temperature 99.9 F Temperature Core Source Pulse Rate 94 Respiratory 16 Rate Blood Pressure 110/62 [Left] Blood Pressure 78 Mean [Left] Blood Pressure Supine Position [Left] Blood Pressure 110 Systolic [Left] O2 Sat by Pulse 99 Oximetry Oxygen Delivery Nasal Cannula Method ( includes room air) Oxygen Flow 2 Rate HEAD: Is atraumatic normocephalic. EYES: Pupils are equal round regular reactive to light and accommodation. EARS: Tympanic membranes are intact. EXTERNAL AUDITORY CANALS ARE CLEAR. Nose: There is no deviated nasal septum. There is no inflammation of the nasal mucous membrane. MOUTH: Mucous membranes of mouth are moist. Tongue is moist. There is no ulcers. There is no bleeding from the gums. THROAT: There is no redness of the oropharynx. There is no exudates. THROAT: There is no redness of the oropharynx. There is no SKIN: There is no skin rashes. There is no skin lesions. There is no petechia or ecchymosis. NECK: Is supple. There is no JVD. Carotids are equal there is no bruits. THERE IS NO LYMPHADENOPATHY. THERE IS NO GOITER. There is no accessory muscle respiration use. TRACHEA is central. LUNGS: Is clear to auscultation percussion. HEART: S1-S2 is heard. There is no S3 gallop. There is no S4 gallop. There is systolic murmur left sternal border and the apex there is no rub. There is murmur of mitral regurgitation present. There is also tricuspid regurgitation present. ABDOMEN: Is soft. Dressing is dry bowel sounds are absent. EXTREMITIES femorals are diminished there is no femoral bruits. Leg pulses are diminished. There is mild anasarca. There is no DVT or cellulitis. There is no calf tenderness. HOME HEALTH LVN the patient is conscious awake alert oriented x3 with no focal deficits. PSYCHIATRIC the patient judgment insight are intact her affect is normal. Labs- All tests 24 hr 10/13/18 10/13/18 10/13/18 11:55 11:55 11:55 WBC 11.2 H RBC 3.05 L Hgb 9.7 L Hct 28.0 L MCV 92 MCH 31.8 MCHC 34.7 RDW 19.1 H Plt Count 97 L Seg Neutrophils % 82.1 H Lymphocytes % 12.5 L Monocytes % 4.5 Eosinophils % 0.6 Basophils % 0.3 Absolute Neutrophils 9.2 H Absolute Lymphocytes 1.4 Absolute Monocytes 0.5 Absolute Eosinophils 0.1 Absolute Basophils 0.0 Sodium 138.0 Potassium 3.7 Chloride 112 H Carbon Dioxide 25 Anion Gap 1 L BUN 8 Creatinine 0.39 L Est GFR ( Amer) > 60 Est GFR (Non-Af Amer) > 60 Glucose 109 Calcium 7.3 L Magnesium 1.3 L Total Bilirubin 0.4 Direct Bilirubin 0.3 Neonat Total Bilirubin Not Reportable Neonat Direct Bilirubin Not Reportable Neonat Indirect Bili Not Reportable AST 46 H ALT 50 Alkaline Phosphatase 73 Total Protein 4.0 L Albumin 1.9 L KUB X-Ray 10/11/18 17:02 IMPRESSION: NASOGASTRIC TUBE IN THE STOMACH. SURGICAL HARDWARE IN THE UPPER ABDOMEN WELL. Chest X-Ray 10/11/18 17:51 IMPRESSION: LIFE LINES DESCRIBED IN SATISFACTORY POSITION. NO ACUTE RADIOGRAPHIC FINDING IN THE CHEST. Chest X-Ray 10/12/18 06:00 IMPRESSION: 1. No definite acute intrathoracic disease or significant change when compared to the prior studies. 2. Prominent mitral valve annular calcifications. 3. Grossly stable life support lines and tubes. Chest X-Ray 10/13/18 06:00 IMPRESSION: Increasing atelectasis in the left lung status post extubation. No pneumothorax. The patient's 24-hour intake is 4126 mL. Output is 2885 mL. IMPRESSION / RECOMMENDATION: 1. Asymptomatic mitral valve disorder. Patient has mild mitral stenosis and moderate mitral regurgitation by echocardiography. 2. Pancreatic cancer f status post Whipple surgical procedure. Patient stable. As per nursing the patient will be started on tube feedings from tomorrow by the surgicalist. 3. Hypertension: Well controlled 4. Diabetes mellitus. Medications reviewed. Management plan discussed with the attending physician on the case. Medical decision making is of moderate complexity. We will follow with you. 40 minutes spent on this patient more than 50% of time spent in direct patient care. Discussed the patient's condition with the patient and patient's family. Will follow.
[2018-10-14] MEDS: MORPHINE SULFATE 10 MG/ML INJ IV PRN ×4 (01:50→19:30)
[2018-10-14] MEDS: METRONIDAZOLE 500 MG/NS RTU 500 MG/100 ML RTUPB IV SCH ×3 (01:55→19:53)
[2018-10-14] MEDS: METOPROLOL TARTRATE PF/INJ 5 MG/5 ML SDV IV SCH ×4 (03:53→21:06)
[2018-10-14] MEDS: CEFAZOLIN 1 GM/D5W RTU 1 GM/50 ML RTUPB IV SCH ×3 (05:50→21:17)
[2018-10-14] MEDS ORDERED: DEXTROSE 50%-WATER 25 GM/50 ML DISP.SYRIN IV ONE ×2 (06:08→06:30)
[2018-10-14] MEDS ORDERED: DEXTROSE 50%-WATER SYRINGE 25 GM/50 ML DOSE IV PRN (06:30)
[2018-10-14] MEDS ORDERED: DEXTROSE 40% GEL 15 GM TUBE PO PRN ×3 (06:30→11:44)
[2018-10-14] MEDS ORDERED: GLUCAGON,HUMAN RECOMB 1 MG INJ IM PRN ×2 (06:30→11:44)
[2018-10-14] MEDS ORDERED: DEXTROSE 50%-WATER SYRINGE 12.5 GM/25 ML DOSE IV PRN (06:30)
[2018-10-14] MEDS ORDERED: DEXTROSE 40% GEL 15 GM TUBE X 2 PO PRN (06:30)
[2018-10-14] MEDS: ALBUMIN HUMAN 5% INJ 25 GM/500 ML BOTTLE IV SCH ×2 (07:34→10:45)
[2018-10-14] MEDS: HEPARIN SOD (PORCINE) 5,000 UNIT/ML 1 ML SYRINGE SUBCUT SCH ×3 (07:34→21:07)
[2018-10-14 08:07] LABS: ABSOLUTE EOSINOPHILS # (AUTO) 0.2 10^3/uL (0.0-0.6); ABSOLUTE LYMPHOCYTES (AUTO) 1.3 10^3/uL (0.5-4.7); ABSOLUTE MONOCYTES (AUTO) 0.5 10^3/uL (0.1-1.4); ABSOLUTE NEUT (AUTO) 7.9 10^3/uL (1.7-8.2); BASOPHILS % (AUTO) 0.3 % (0-2); EOSINOPHILS % (AUTO) 1.9 % (0-6); HEMATOCRIT 26.6 % (36.0-47.0); HEMOGLOBIN 9.1 g/dL (12.0-15.5); LYMPHOCYTES % (AUTO) 13.6 % (13-45); MEAN CORPUSCULAR HEMOGLOBIN 31.9 pg (27.0-33.4); MEAN CORPUSCULAR HGB CONC 34.1 g/dL (32.0-36.0); MEAN CORPUSCULAR VOLUME 94 fl (80-97); MONOCYTES % (AUTO) 4.6 % (3-13); RED BLOOD COUNT 2.84 10^6/uL (3.72-5.28); RED CELL DISTRIBUTION WIDTH 19.1 % (11.5-14.0); SEGMENTED NEUTROPHILS % (AUTO) 79.6 % (42-78); TOTAL CELLS COUNTED % (AUTO) 100 %; WHITE BLOOD COUNT 9.9 10^3/uL (4.0-10.5)
[2018-10-14 08:17] LABS: ALBUMIN 1.7 g/dL (3.5-5.0); BLOOD UREA NITROGEN 6 mg/dL (7-20); CALCIUM 7.2 mg/dL (8.4-10.2); POTASSIUM 3.4 mmol/L (3.6-5.0)
[2018-10-14 08:22] LABS: CARBON DIOXIDE 24 mmol/L (22-30); CHLORIDE 113 mmol/L (98-107); SODIUM 138.6 mmol/L (137-145)
[2018-10-14 08:27] LABS: ANION GAP 2 (5-19); GLUCOSE 52 mg/dL (75-110)
[2018-10-14 08:37] LABS: PLATELET COUNT 88 10^3/uL (150-450)
--- NOTE | 2018-10-14 08:45 | RADIOLOGY REPORT (SQ) ---
EXAM DESCRIPTION: CHEST SINGLE VIEW COMPLETED DATE/TIME: 10/14/2018 7:00 am REASON FOR STUDY: intubated COMPARISON: None. NUMBER OF VIEWS: One view. TECHNIQUE: Single frontal radiographic image of the chest acquired. LIMITATIONS: None. FINDINGS: LUNGS AND PLEURA: Improved aeration in the left upper lung. Unchanged small left pleural effusion. MEDIASTINUM AND HEART: Stable heart size and mediastinal structures. SUPPORT DEVICES: Appropriate location without change. BONY STRUCTURES: No acute findings. HARDWARE: None. OTHER: No other significant finding. IMPRESSION: Improved aeration left lung. Reading location - IP/workstation name: [email or web address]
--- NOTE | 2018-10-14 09:51 | PDOC PROGRESS REPORT ---
Subjective Progress Note for:: 10/14/18 Subjective:: feels ok was up to chair yesterday no flatus min ng op Reason For Visit: C25.9 MALIGNANT NEOPLASM OF PANCREAS, UNSPECIFIED Physical Exam Vital Signs: Temp Pulse Resp BP Pulse Ox 99.5 F 86 16 120/71 99 10/14/18 08:00 10/14/18 08:00 10/14/18 08:00 10/14/18 08:00 10/14/18 08:00 Intake & Output 10/13/18 10/14/18 10/15/18 06:59 06:59 06:59 Intake Total 4126 2450 150 Output Total 2885 1900 45 Balance 1241 550 105 Weight 77.1 kg 76.7 kg General appearance: PRESENT: no acute distress Head exam: PRESENT: normocephalic Eye exam: PRESENT: EOMI Mouth exam: PRESENT: moist Neck exam: PRESENT: full ROM Respiratory exam: PRESENT: clear to auscultation valarie Cardiovascular exam: PRESENT: RRR Pulses: PRESENT: normal radial pulses, normal femoral pulses Vascular exam: PRESENT: normal capillary refill GI/Abdominal exam: PRESENT: hypoactive bowel sounds, soft Rectal exam: PRESENT: deferred Extremities exam: PRESENT: full ROM Musculoskeletal exam: PRESENT: full ROM Neurological exam: PRESENT: alert, awake, oriented to person, oriented to place, oriented to time, oriented to situation Psychiatric exam: PRESENT: appropriate affect Results Laboratory Results: 10/14/18 05:53 10/14/18 05:53 10/13/18 10/13/18 10/13/18 11:55 11:55 11:55 WBC 11.2 H RBC 3.05 L Hgb 9.7 L Hct 28.0 L MCV 92 MCH 31.8 MCHC 34.7 RDW 19.1 H Plt Count 97 L Seg Neutrophils % 82.1 H Lymphocytes % 12.5 L Monocytes % 4.5 Eosinophils % 0.6 Basophils % 0.3 Absolute Neutrophils 9.2 H Absolute Lymphocytes 1.4 Absolute Monocytes 0.5 Absolute Eosinophils 0.1 Absolute Basophils 0.0 Sodium 138.0 Potassium 3.7 Chloride 112 H Carbon Dioxide 25 Anion Gap 1 L BUN 8 Creatinine 0.39 L Est GFR ( Amer) > 60 Est GFR (Non-Af Amer) > 60 Glucose 109 Calcium 7.3 L Magnesium 1.3 L Total Bilirubin 0.4 AST 46 H ALT 50 Alkaline Phosphatase 73 Total Protein 4.0 L Albumin 1.9 L 10/14/18 10/14/18 05:53 05:53 WBC 9.9 RBC 2.84 L Hgb 9.1 L Hct 26.6 L MCV 94 MCH 31.9 MCHC 34.1 RDW 19.1 H Plt Count 88 L Seg Neutrophils % 79.6 H Lymphocytes % 13.6 Monocytes % 4.6 Eosinophils % 1.9 Basophils % 0.3 Absolute Neutrophils 7.9 Absolute Lymphocytes 1.3 Absolute Monocytes 0.5 Absolute Eosinophils 0.2 Absolute Basophils 0.0 Sodium 138.6 Potassium 3.4 L Chloride 113 H Carbon Dioxide 24 Anion Gap 2 L BUN 6 L Creatinine 0.38 L Est GFR ( Amer) > 60 Est GFR (Non-Af Amer) > 60 Glucose 52 L Calcium 7.2 L Magnesium 1.3 L Total Bilirubin AST ALT Alkaline Phosphatase Total Protein Albumin 1.7 L Impressions: KUB X-Ray 10/11/18 17:02 IMPRESSION: NASOGASTRIC TUBE IN THE STOMACH. SURGICAL HARDWARE IN THE UPPER ABDOMEN WELL. Chest X-Ray 10/14/18 06:00 IMPRESSION: Improved aeration left lung. Assessment & Plan - Plan Summary Plan Summary: doing well pod #3 labs reviwed h.h stable wbc wnl lft's, lipase ok plan dc ng transfer to medical floor replace mag start tube feeds.
[2018-10-14] MEDS: FAMOTIDINE INJ/PF 20 MG/2 ML SDV IV SCH ×2 (10:39→21:07)
[2018-10-14] MEDS: MAGNESIUM SULFATE/D5W 1 GM/100 ML RTUPB IV SCH ×2 (10:41→13:45)
[2018-10-14] MEDS: NORMAL SALINE 1000 ML 1,000 ML IV PRN ×2 (10:41→13:55)
[2018-10-14] MEDS ORDERED: POTASSIUM CHLORIDE 20 MEQ/15 ML UDCUP PO ONE (11:10)
[2018-10-14] MEDS ORDERED: LORAZEPAM 0.5 MG TABLET PO PRN (11:12)
[2018-10-14] MEDS ORDERED: PROMETHAZINE HCL 25 MG TABLET PO PRN (11:12)
[2018-10-14] MEDS ORDERED: ALBUMIN HUMAN 12.5 GM/50 ML RTUINJ IV SCH (11:15)
[2018-10-14] MEDS ORDERED: CYANOCOBALAMIN (VITAMIN B-12) INJ 1000 MCG/1 ML VIAL IM SCH (11:15)
[2018-10-14] MEDS ORDERED: DEXTROSE 50%-WATER 25 GM/50 ML DISP.SYRIN IV PRN ×2 (11:44)
--- NOTE | 2018-10-14 11:48 | PDOC CONSULTATION ---
Consultation Consult Date: 10/14/18 Attending physician:: SULY LOPEZ Consult reason:: Diabetes mellitus with low blood sugars History of Present Illness Admission Date/PCP: 10/11/18 05:25 TANISHA TURNER MD Patient complains of: No complaints from the patient today History of Present Illness: NARGIS MELENDREZ is a 68 year old female with history of pancreatic cancer, mitral valve disorder, hypertension, diabetes mellitus admitted for Whipple's procedure on 10/11/2018-patient has a successful surgery on 10/11/2018. Patient was cleared by Dr. Jean for surgery no postop complications. Patient still have a drainage tube at the surgical site. She has a G-tube and plan is to start G- tube feedings from today. The today's labs magnesium is 1.3 which is supplemen lu potassium is 3.4 getting potassium supplements albumin is 1.9 getting IV albumin 50 g every 8 hours. pt is downgraded to medical floor by the surgical team. Past Medical History Cardiac Medical History: Reports: Hyperlipidema, Hypertension Denies: Atrial Fibrillation, Congestive Heart Failure, Coronary Artery Disease, Myocardial Infarction, Peripheral Vascular Disease, Pulmonary Embolism, Heart Murmur Pulmonary Medical History: Reports: Asthma Denies: Bronchitis, Chronic Obstructive Pulmonary Disease (COPD), Pneumonia, Respiratory Failure, Sleep Apnea, Tuberculosis Neurological Medical History: Denies: Seizures Endocrine Medical History: Reports: Diabetes Mellitus Type 2 Denies: Hyperthyroidism, Hypothyroidism Renal/ Medical History: Denies: End Stage Renal Disease Malignancy Medical History: Denies: Breast Cancer, Cervical Cancer, Leukemia, Lung Cancer, Ovarian Cancer GI Medical History: Reports: Gastroesophageal Reflux Disease Denies: Crohn's Disease, Hepatitis, Hiatal Hernia Musculoskeltal Medical History: Reports: Arthritis Denies: Fibromyalgia Psychiatric Medical History: Reports: Depression Denies: Bipolar Disorder, Dementia, Post Traumatic Stress Disorder Hematology: Reports: Anemia Denies: Hemophilia, Sickle Cell Disease Infectious Medical History: Denies: HIV Past Surgical History Past Surgical History: Reports: Appendectomy, Cholecystectomy, Gastric Bypass Surgery, Orthopedic Surgery - left femur fx, Tonsillectomy, Tubal Ligation Denies: Amputation, Section, Colostomy, Coronary Artery Bypass Graft, Herniorrhaphy, Hysterectomy, Mastectomy, Pacemaker Social History Information Source: Patient Smoking Status: Never Smoker Frequency of Alcohol Use: Rare Hx Recreational Drug Use: No Hx Prescription Drug Abuse: No - Advance Directive Resuscitation Status: Full Code Family History Family History: Reviewed & Not Pertinent Parental Family History Reviewed: Yes Children Family History Reviewed: Yes Sibling(s) Family History Reviewed.: Yes Medication/Allergy Home Medications: Simvastatin [Zocor 20 mg Tablet] 40 mg PO QHS 05/17/12 Aspirin [Aspirin EC] 81 mg PO DAILY 10/16/15 Sertraline HCl [Zoloft] 100 mg PO DAILY 10/16/15 Bimatoprost [Lumigan 0.01% Oph Soln 2.5 ml/Bottle] 1 drop OP DAILY 07/11/18 Cyanocobalamin (Vitamin B-12) [Vitamin B-12 Inj 1000 Mcg/1 ml Vial] 1,000 mcg IM .MONTHLY 07/11/18 Montelukast Sodium [Singulair 10 mg Tablet] 10 mg PO QHS 07/11/18 Pramipexole Di-HCl [Mirapex] 1 mg PO QPM PRN 07/11/18 Sitagliptin Phos/Metformin HCl [Janumet 50-1,000 Mg Tablet] 1 each PO BID 07/11/18 Clobetasol Propionate [Temovate 0.05% Ointment 15 Gm] 1 applic TP BID 10/04/18 Lisinopril [Prinivil] 5 mg PO QAM 10/04/18 Lorazepam [Ativan 0.5 mg Tablet] 0.5 mg PO Q4 PRN 10/04/18 Ondansetron [Ondansetron Odt] 8 mg PO BID 10/04/18 Pantoprazole Sodium [Protonix] 40 mg PO BID 10/04/18 Promethazine HCl [Phenergan 25 mg Tablet] 25 mg PO Q6 PRN 10/04/18 Fluconazole [Diflucan] 150 mg PO PRN PRN 10/11/18 Allergies/Adverse Reactions: Sulfa (Sulfonamide Antibiotics) Allergy (Mild, Verified 10/11/18 06:39) Generalized rash epinephrine Adverse Reaction (Verified 10/11/18 06:39) Review of Systems Constitutional: PRESENT: fever(s). ABSENT: fatigue, weakness Eyes: ABSENT: visual disturbances Ears: ABSENT: hearing changes Nose, Mouth, and Throat: ABSENT: sore throat Cardiovascular: ABSENT: chest pain, dyspnea on exertion Respiratory: ABSENT: dyspnea, hemoptysis Gastrointestinal: ABSENT: dysphagia, melena, nausea, vomiting Neurological: ABSENT: abnormal gait, abnormal speech, confusion, dizziness, focal weakness, syncope Psychiatric: PRESENT: as per HPI Physical Exam Vital Signs: Temp Pulse Resp BP Pulse Ox 99.5 F 86 16 120/71 99 10/14/18 08:00 10/14/18 08:00 10/14/18 08:00 10/14/18 08:00 10/14/18 08:00 Intake & Output 10/13/18 10/14/18 10/15/18 06:59 06:59 06:59 Intake Total 4126 3450 150 Output Total 2885 1900 45 Balance 1241 1550 105 Weight 77.1 kg 76.7 kg General appearance: PRESENT: no acute distress, thin Head exam: PRESENT: atraumatic Eye exam: PRESENT: PERRLA Mouth exam: PRESENT: moist, tongue midline Neck exam: ABSENT: carotid bruit, JVD, lymphadenopathy, thyromegaly Respiratory exam: PRESENT: clear to auscultation valarie. ABSENT: rales, rhonchi, wheezes Cardiovascular exam: PRESENT: RRR. ABSENT: diastolic murmur, rubs, systolic murmur GI/Abdominal exam: PRESENT: other - Bowel sounds are sluggish patient has drain at the surgical site with bloodstained clear drainage and she has a G-tube present. Extremities exam: PRESENT: full ROM. ABSENT: calf tenderness, clubbing, pedal edema Neurological exam: PRESENT: alert, awake, oriented to person, oriented to place, oriented to time, oriented to situation, CN II-XII grossly intact. ABSENT: motor sensory deficit Psychiatric exam: PRESENT: appropriate affect, normal mood. ABSENT: homicidal ideation, suicidal ideation Results Laboratory Results: 10/14/18 05:53 10/14/18 05:53 10/13/18 10/13/18 10/13/18 11:55 11:55 11:55 WBC 11.2 H RBC 3.05 L Hgb 9.7 L Hct 28.0 L MCV 92 MCH 31.8 MCHC 34.7 RDW 19.1 H Plt Count 97 L Seg Neutrophils % 82.1 H Lymphocytes % 12.5 L Monocytes % 4.5 Eosinophils % 0.6 Basophils % 0.3 Absolute Neutrophils 9.2 H Absolute Lymphocytes 1.4 Absolute Monocytes 0.5 Absolute Eosinophils 0.1 Absolute Basophils 0.0 Sodium 138.0 Potassium 3.7 Chloride 112 H Carbon Dioxide 25 Anion Gap 1 L BUN 8 Creatinine 0.39 L Est GFR ( Amer) > 60 Est GFR (Non-Af Amer) > 60 Glucose 109 Calcium 7.3 L Magnesium 1.3 L Total Bilirubin 0.4 AST 46 H ALT 50 Alkaline Phosphatase 73 Total Protein 4.0 L Albumin 1.9 L 10/14/18 10/14/18 05:53 05:53 WBC 9.9 RBC 2.84 L Hgb 9.1 L Hct 26.6 L MCV 94 MCH 31.9 MCHC 34.1 RDW 19.1 H Plt Count 88 L Seg Neutrophils % 79.6 H Lymphocytes % 13.6 Monocytes % 4.6 Eosinophils % 1.9 Basophils % 0.3 Absolute Neutrophils 7.9 Absolute Lymphocytes 1.3 Absolute Monocytes 0.5 Absolute Eosinophils 0.2 Absolute Basophils 0.0 Sodium 138.6 Potassium 3.4 L Chloride 113 H Carbon Dioxide 24 Anion Gap 2 L BUN 6 L Creatinine 0.38 L Est GFR ( Amer) > 60 Est GFR (Non-Af Amer) > 60 Glucose 52 L Calcium 7.2 L Magnesium 1.3 L Total Bilirubin AST ALT Alkaline Phosphatase Total Protein Albumin 1.7 L Impressions: KUB X-Ray 10/11/18 17:02 IMPRESSION: NASOGASTRIC TUBE IN THE STOMACH. SURGICAL HARDWARE IN THE UPPER ABDOMEN WELL. Chest X-Ray 10/14/18 06:00 IMPRESSION: Improved aeration left lung. Assessment and Plan - Diagnosis (1) Pancreatic adenocarcinoma Is this a current diagnosis for this admission?: Yes Plan: 10/14/2018-postoperative day 3. Surgical team is planning to start on G-tube feeding. Patient did not have a bowel movement at. On examination bowel sounds are sluggish. Drain present at the surgical site shows blood stained drainage. On examination abdomen was soft nontender. She denies any pains. Denies any nausea no vomiting. Plan is to continue the management as per surgery. (2) Diabetes Is this a current diagnosis for this admission?: No Plan: 10/14/2018-patient has history of type 2 diabetes mellitus she is taking Januvia at home. Blood sugar this morning is 52. Plan to start the J. Feeding today. Patient is on insulin sliding scale. Blood sugar this morning is 52. Hypoglycemia protocol is in place. Plan to check the hemoglobin A1c tomorrow. Dietary consult was requested. (3) HTN (hypertension) Is this a current diagnosis for this admission?: No Plan: 10/12/2018-patient has history of essential hypertension. Her pressure today is 120/71. At home she takes lisinopril 5 mg p.o. daily which was on hold at this point. (4) Hypomagnesemia Is this a current diagnosis for this admission?: Yes Plan: 10/14/2018-serum magnesium level is 1.3 today patient is receiving 2 g of IV magnesium. Plan to recheck the labs tomorrow. (5) Hypokalemia Is this a current diagnosis for this admission?: Yes Plan: Serum potassium level today is 3.4 plan to give 40 mg of p.o. potassium via G- tube today. (6) Hypoalbuminemia Is this a current diagnosis for this admission?: Yes Plan: 10/13/2018-serum albumin level is 1.9 patient is on albumin 50 g every 8 hours. Hypoalbuminemia most likely secondary to underlying malignancy. (7) Anemia Is this a current diagnosis for this admission?: No Plan: 10/14/2018-patient has history of anemia of chronic disease. Most likely secondary to underlying malignancy. Latest hemoglobin is 9.1. Plan is to cont inue to monitor the hemoglobin and daily basis. - Time Time Spent with patient: 15-24 minutes Medications reviewed and adjusted accordingly: Yes Anticipated discharge: SNF
[2018-10-14] MEDS ORDERED: ASPIRIN 81 MG TABLET, ENT COATED PO SCH (12:00)
[2018-10-14] MEDS: INSULIN REG, HUMAN 100 UNIT/ML 3 ML VIAL (PYX) SUBCUT SCH ×2 (13:44→19:25)
--- NOTE | 2018-10-14 13:58 | Progress Note ---
Provider Note Provider Note: CARDIOLOGY PROGRESS NOTE by Dr. Rissa Jean on 10/14/2018. SUBJECTIVE: The patient is doing well. She has no chest pain or discomfort. There is no shortness of breath. There is no PND orthopnea. There is no arrhythmia seen on the monitor. There is no TIA CVA symptoms. The patient has no nausea vomiting. She has been started on a JVD enteral nutrition by the jejunostomy tube. PHYSICAL EXAMINATION: The patient mildly obese. In no acute distress. She is well-groomed Selected Entries 10/14/18 08:00 Temperature 99.5 F Temperature Core Source Pulse Rate 86 Respiratory 16 Rate Blood Pressure 120/71 [Left] Blood Pressure 87 Mean [Left] Blood Pressure Supine Position [Left] O2 Sat by Pulse 99 Oximetry Oxygen Delivery Room Air Method ( includes room air) HEAD: Is atraumatic normocephalic. EYES: Pupils are equal round regular reactive to light and accommodation. EARS: Tympanic membranes are intact. EXTERNAL AUDITORY CANALS ARE CLEAR. Nose: There is no deviated nasal septum. There is no inflammation of the nasal mucous membrane. MOUTH: Mucous membranes of mouth are moist. Tongue is moist. There is no ulcers. There is no bleeding from the gums. THROAT: There is no redness of the oropharynx. There is no exudates. THROAT: There is no redness of the oropharynx. There is no SKIN: There is no skin rashes. There is no skin lesions. There is no petechia or ecchymosis. NECK: Is supple. There is no JVD. Carotids are equal there is no bruits. THERE IS NO LYMPHADENOPATHY. THERE IS NO GOITER. There is no accessory muscle respiration use. TRACHEA is central. LUNGS: Is clear to auscultation percussion. HEART: S1-S2 is heard. There is no S3 gallop. There is no S4 gallop. There is systolic murmur left sternal border and the apex there is no rub. There is murmur of mitral regurgitation present. There is also tricuspid regurgitation present. ABDOMEN: Is soft. Dressing is dry bowel sounds are absent. EXTREMITIES femorals are diminished there is no femoral bruits. Leg pulses are diminished. There is mild anasarca. There is no DVT or cellulitis. There is no calf tenderness. SUPERVISOR BAKING the patient is conscious awake alert oriented x3 with no focal deficits. PSYCHIATRIC the patient judgment insight are intact her affect is normal. Labs- All tests 24 hr 10/14/18 10/14/18 10/14/18 05:43 05:53 05:53 WBC 9.9 RBC 2.84 L Hgb 9.1 L Hct 26.6 L MCV 94 MCH 31.9 MCHC 34.1 RDW 19.1 H Plt Count 88 L Seg Neutrophils % 79.6 H Lymphocytes % 13.6 Monocytes % 4.6 Eosinophils % 1.9 Basophils % 0.3 Absolute Neutrophils 7.9 Absolute Lymphocytes 1.3 Absolute Monocytes 0.5 Absolute Eosinophils 0.2 Absolute Basophils 0.0 Sodium 138.6 Potassium 3.4 L Chloride 113 H Carbon Dioxide 24 Anion Gap 2 L BUN 6 L Creatinine 0.38 L Est GFR ( Amer) > 60 Est GFR (Non-Af Amer) > 60 Glucose 52 L POC Glucose 60 L Calcium 7.2 L Magnesium 1.3 L Albumin 1.7 L 10/14/18 12:03 WBC RBC Hgb Hct MCV MCH MCHC RDW Plt Count Seg Neutrophils % Lymphocytes % Monocytes % Eosinophils % Basophils % Absolute Neutrophils Absolute Lymphocytes Absolute Monocytes Absolute Eosinophils Absolute Basophils Sodium Potassium Chloride Carbon Dioxide Anion Gap BUN Creatinine Est GFR ( Amer) Est GFR (Non-Af Amer) Glucose POC Glucose 82 Calcium Magnesium Albumin KUB X-Ray 10/11/18 17:02 IMPRESSION: NASOGASTRIC TUBE IN THE STOMACH. SURGICAL HARDWARE IN THE UPPER ABDOMEN WELL. Chest X-Ray 10/11/18 17:51 IMPRESSION: LIFE LINES DESCRIBED IN SATISFACTORY POSITION. NO ACUTE RADIOG RAPHIC FINDING IN THE CHEST. Chest X-Ray 10/12/18 06:00 IMPRESSION: 1. No definite acute intrathoracic disease or significant change when compared to the prior studies. 2. Prominent mitral valve annular calcifications. 3. Grossly stable life support lines and tubes. Chest X-Ray 10/13/18 06:00 IMPRESSION: Increasing atelectasis in the left lung status post extubation. No pneumothorax. Chest X-Ray 10/14/18 06:00 IMPRESSION: Improved aeration left lung. IMPRESSION/RECOMMENDATION: 1. Status post Whipple surgery for pancreatic cancer: Patient stable. 2. Mild mitral stenosis and mitral regurgitation by echocardiographic: Patient without any arrhythmias or heart failure. 3. HYPERTENSION: Blood pressure is well controlled. 4. DIABETES MELLITUS: Continue monitoring patient's blood sugar and continue current antidiabetic regiment. Medications reviewed discussed the case with the attending physician on the case. Would highly recommend getting a hospitalist to follow the patient to manage the patient's diabetes and hypertension. Cardiac status is stable. Will sign off. The patient is asked to follow-up with me in the office. We will follow her as an outpatient.
[2018-10-14] MEDS: CLOBETASOL PROPIONATE 0.05% OINTMENT 15 GM TP SCH ×2 (17:10→22:59)
[2018-10-14] MEDS ORDERED: PRAMIPEXOLE DI-HCL 0.5 MG TABLET PO SCH (18:00)
[2018-10-14] MEDS ORDERED: (PENDING PHARMACY ID) (Pramipexole Di-Hcl [Mirapex] 1 MG) PO SCH (18:00)
[2018-10-14] MEDS ORDERED: MONTELUKAST SODIUM 10 MG TABLET PO SCH (22:00)
[2018-10-15] MEDS: INSULIN REG, HUMAN 100 UNIT/ML 3 ML VIAL (PYX) SUBCUT SCH ×4 (00:34→17:19)
[2018-10-15] MEDS: MORPHINE SULFATE 10 MG/ML INJ IV PRN ×5 (01:11→22:21)
[2018-10-15] MEDS: METRONIDAZOLE 500 MG/NS RTU 500 MG/100 ML RTUPB IV SCH ×3 (01:11→17:29)
[2018-10-15] MEDS: METOPROLOL TARTRATE PF/INJ 5 MG/5 ML SDV IV SCH ×4 (02:49→22:25)
[2018-10-15] MEDS: NORMAL SALINE 1000 ML 1,000 ML IV PRN (05:00)
[2018-10-15] MEDS: CEFAZOLIN 1 GM/D5W RTU 1 GM/50 ML RTUPB IV SCH ×3 (05:03→22:34)
[2018-10-15 05:17] LABS: ALANINE AMINOTRANSFERASE 37 U/L (9-52); ALBUMIN 1.8 g/dL (3.5-5.0); ALKALINE PHOSPHATASE 61 U/L (38-126); ASPARTATE AMINO TRANSFERASE 20 U/L (14-36); BILIRUBIN,DIRECT 0.3 mg/dL (0.0-0.4); BILIRUBIN,TOTAL 0.4 mg/dL (0.2-1.3); BLOOD UREA NITROGEN 5 mg/dL (7-20); CALCIUM 7.1 mg/dL (8.4-10.2); CARBON DIOXIDE 26 mmol/L (22-30); CHLORIDE 109 mmol/L (98-107); GLUCOSE 89 mg/dL (75-110); SODIUM 138.5 mmol/L (137-145); TOTAL PROTEIN 3.6 g/dL (6.3-8.2)
[2018-10-15 05:23] LABS: ANION GAP 4 (5-19)
[2018-10-15 05:25] LABS: POTASSIUM 2.9 mmol/L (3.6-5.0)
[2018-10-15] MEDS: HEPARIN SOD (PORCINE) 5,000 UNIT/ML 1 ML SYRINGE SUBCUT SCH ×3 (06:14→22:27)
[2018-10-15] MEDS: MAGNESIUM SULFATE 1 GM/D5W 100 ML IV SCH ×2 (06:15→07:07)
--- NOTE | 2018-10-15 07:31 | PDOC PROGRESS REPORT ---
Subjective Progress Note for:: 10/15/18 Subjective:: feels ok was up to chair yesterday no flatus min ng op Reason For Visit: C25.9 MALIGNANT NEOPLASM OF PANCREAS, UNSPECIFIED Physical Exam Vital Signs: Temp Pulse Resp BP Pulse Ox 99.5 F 90 17 131/74 H 100 10/15/18 04:58 10/14/18 20:00 10/15/18 06:24 10/15/18 06:24 10/14/18 11:00 Intake & Output 10/14/18 10/15/18 10/16/18 06:59 06:59 06:59 Intake Total 3450 1737 87 Output Total 1900 995 Balance 1550 742 87 Weight 76.7 kg 77.9 kg General appearance: PRESENT: no acute distress Head exam: PRESENT: normocephalic Eye exam: PRESENT: EOMI Mouth exam: PRESENT: moist Neck exam: PRESENT: full ROM Respiratory exam: PRESENT: clear to auscultation valarie Cardiovascular exam: PRESENT: RRR Pulses: PRESENT: normal radial pulses, normal femoral pulses GI/Abdominal exam: PRESENT: hypoactive bowel sounds Rectal exam: PRESENT: deferred Gentrourinary exam: PRESENT: indwelling catheter Extremities exam: PRESENT: full ROM Musculoskeletal exam: PRESENT: full ROM Psychiatric exam: PRESENT: appropriate affect Results Laboratory Results: 10/14/18 05:53 10/15/18 04:53 10/14/18 10/14/18 10/15/18 05:53 05:53 04:53 WBC 9.9 RBC 2.84 L Hgb 9.1 L Hct 26.6 L MCV 94 MCH 31.9 MCHC 34.1 RDW 19.1 H Plt Count 88 L Seg Neutrophils % 79.6 H Lymphocytes % 13.6 Monocytes % 4.6 Eosinophils % 1.9 Basophils % 0.3 Absolute Neutrophils 7.9 Absolute Lymphocytes 1.3 Absolute Monocytes 0.5 Absolute Eosinophils 0.2 Absolute Basophils 0.0 Sodium 138.6 138.5 Potassium 3.4 L 2.9 L* Chloride 113 H 109 H Carbon Dioxide 24 26 Anion Gap 2 L 4 L BUN 6 L 5 L Creatinine 0.38 L 0.35 L Est GFR ( Amer) > 60 > 60 Est GFR (Non-Af Amer) > 60 > 60 Glucose 52 L 89 Calcium 7.2 L 7.1 L Magnesium 1.3 L 1.5 L Total Bilirubin 0.4 AST 20 ALT 37 Alkaline Phosphatase 61 Total Protein 3.6 L Albumin 1.7 L 1.8 L Impressions: KUB X-Ray 10/11/18 17:02 IMPRESSION: NASOGASTRIC TUBE IN THE STOMACH. SURGICAL HARDWARE IN THE UPPER ABDOMEN WELL. Chest X-Ray 10/14/18 06:00 IMPRESSION: Improved aeration left lung. Assessment & Plan - Diagnosis (1) Pancreatic adenocarcinoma Is this a current diagnosis for this admission?: Yes - Plan Summary Plan Summary: doing well was up in chair yesterday no labs this am jaycee output decreased urine op adeq. dwight sips of ice chips plan will increase tube feeds today' transfer to reg floor increase activity.
[2018-10-15] MEDS ORDERED: MAGNESIUM SULFATE/D5W 1 GM/100 ML RTUPB IV SCH (07:45)
[2018-10-15] MEDS: POTASSIUM CHLORIDE 20 MEQ/50 ML RTU IV SCH ×3 (08:00→12:32)
[2018-10-15] MEDS ORDERED: DEXTROSE 40% GEL 15 GM TUBE JT PRN ×2 (08:00)
--- NOTE | 2018-10-15 08:29 | PDOC PROGRESS REPORT ---
Subjective Progress Note for:: 10/15/18 Subjective:: 68 year old female with history of pancreatic cancer, mitral valve disorder, hypertension, diabetes mellitus admitted for Whipple's procedure on 10/11/2018- patient has a successful surgery on 10/11/2018. Patient was cleared by Dr. Jean for surgery no postop complications. Patient still have a drainage tube at the surgical site. She has a G-tube and plan is to start G-tube feedings from today. The today's labs magnesium is 1.3 which is supplemented potassium is 3.4 getting potassium supplements albumin is 1.9 getting IV albumin 50 g every 8 hours. pt is downgraded to medical floor by the surgical team. 10/15/[id number]-old female with history of malignant pancreatic cancer status post Whipple procedure on 10/11/2018-doing well. Has a low-grade fever of 99.5. No acute events in the last 24 hours. The surgical drain shows decreasing drainage. Patient is receiving J-tube feedings. Patient downgraded to medical floor by surgical team. This morning potassium is 2.9 and magnesium is 1.3 which are supplemented by the surgeon. Patient is comfortably in the bed denies any complaints. Reason For Visit: C25.9 MALIGNANT NEOPLASM OF PANCREAS, UNSPECIFIED Physical Exam Vital Signs: Temp Pulse Resp BP Pulse Ox 99.0 F 85 7 L 131/74 H 100 10/15/18 07:00 10/15/18 07:00 10/15/18 07:00 10/15/18 07:00 10/14/18 11:00 Intake & Output 10/14/18 10/15/18 10/16/18 06:59 06:59 06:59 Intake Total 3450 1737 87 Output Total 1900 995 Balance 1550 742 87 Weight 76.7 kg 77.9 kg General appearance: PRESENT: no acute distress Head exam: PRESENT: atraumatic Eye exam: PRESENT: PERRLA Mouth exam: PRESENT: moist, tongue midline Teeth exam: PRESENT: poor dentation Neck exam: ABSENT: carotid bruit, JVD, lymphadenopathy, thyromegaly Respiratory exam: PRESENT: decreased breath sounds Cardiovascular exam: PRESENT: tachycardia GI/Abdominal exam: PRESENT: other - [place] present in the midline of the abdom en. Patient has surgical NG tube present. Bowel sounds are still sluggish. Gentrourinary exam: PRESENT: indwelling catheter Extremities exam: PRESENT: full ROM. ABSENT: calf tenderness, clubbing, pedal edema Neurological exam: PRESENT: alert, awake, oriented to person, oriented to place, oriented to time, oriented to situation, CN II-XII grossly intact. ABSENT: motor sensory deficit Psychiatric exam: PRESENT: appropriate affect, normal mood. ABSENT: homicidal ideation, suicidal ideation Results Laboratory Results: 10/14/18 05:53 10/15/18 04:53 10/14/18 10/14/18 10/15/18 05:53 05:53 04:53 WBC 9.9 RBC 2.84 L Hgb 9.1 L Hct 26.6 L MCV 94 MCH 31.9 MCHC 34.1 RDW 19.1 H Plt Count 88 L Seg Neutrophils % 79.6 H Lymphocytes % 13.6 Monocytes % 4.6 Eosinophils % 1.9 Basophils % 0.3 Absolute Neutrophils 7.9 Absolute Lymphocytes 1.3 Absolute Monocytes 0.5 Absolute Eosinophils 0.2 Absolute Basophils 0.0 Sodium 138.6 138.5 Potassium 3.4 L 2.9 L* Chloride 113 H 109 H Carbon Dioxide 24 26 Anion Gap 2 L 4 L BUN 6 L 5 L Creatinine 0.38 L 0.35 L Est GFR ( Amer) > 60 > 60 Est GFR (Non-Af Amer) > 60 > 60 Glucose 52 L 89 Calcium 7.2 L 7.1 L Magnesium 1.3 L 1.5 L Total Bilirubin 0.4 AST 20 ALT 37 Alkaline Phosphatase 61 Total Protein 3.6 L Albumin 1.7 L 1.8 L Impressions: KUB X-Ray 10/11/18 17:02 IMPRESSION: NASOGASTRIC TUBE IN THE STOMACH. SURGICAL HARDWARE IN THE UPPER ABDOMEN WELL. Chest X-Ray 10/14/18 06:00 IMPRESSION: Improved aeration left lung. Assessment and Plan - Diagnosis (1) Pancreatic adenocarcinoma Is this a current diagnosis for this admission?: Yes Plan: 10/14/2018-postoperative day 3. Surgical team is planning to start on G-tube feeding. Patient did not have a bowel movement at. On examination bowel sounds are sluggish. Drain present at the surgical site shows blood stained drainage. On examination abdomen was soft nontender. She denies any pains. Denies any nausea no vomiting. Plan is to continue the management as per surgery. 10/15/2018-postoperative day 4. Patient is receiving the J-tube feeding. Less drainage in the surgical drain. Bowel sounds are sluggish. Still did not have any bowel movement yet. Denies any abdominal pain. On cefazolin, patient has a low-grade fever of 99.5. Further management as per surgical team. (2) Diabetes Is this a current diagnosis for this admission?: No Plan: 10/14/2018-patient has history of type 2 diabetes mellitus she is taking Januvia at home. Blood sugar this morning is 52. Plan to start the J. Feeding today. Patient is on insulin sliding scale. Blood sugar this morning is 52. Hypoglycemia protocol is in place. Plan to check the hemoglobin A1c tomorrow. Dietary consult was requested. 10/15/2018-patient's latest blood sugar is 89. Patient is on Januvia at home. Which was on hold. Hemoglobin A1c 6.7. Patient is on insulin sliding scale plan is to continue the present management. Hypoglycemia protocol in place. (3) HTN (hypertension) Is this a current diagnosis for this admission?: No Plan: 10/12/2018-patient has history of essential hypertension. Her pressure today is 120/71. At home she takes lisinopril 5 mg p.o. daily which was on hold at this point. 10/14/2018-patient blood pressure today is 131/74. On lisinopril 5 mg p.o. daily at home plan is to resume the medication today. (4) Hypomagnesemia Is this a current diagnosis for this admission?: Yes Plan: 10/14/2018-serum magnesium level is 1.3 today patient is receiving 2 g of IV magnesium. Plan to recheck the labs tomorrow. 10/15/2018-serum magnesium is 1.[address] López ordered 2 g of IV magnesium supplementation. (5) Hypokalemia Is this a current diagnosis for this admission?: Yes Plan: Serum potassium level today is 3.4 plan to give 40 mg of p.o. potassium via G- tube today. 10/15/2018-serum potassium is 2.9 Dr. Kaplan placed order for potassium supplementation. (6) Hypoalbuminemia Is this a current diagnosis for this admission?: Yes Plan: 10/13/2018-serum albumin level is 1.9 patient is on albumin 50 g every 8 hours. Hypoalbuminemia most likely secondary to underlying malignancy. 10/15/2018-serum albumin level is 1.8 patient is on IV albumin every 8 hours. Plan is to continue the present management. (7) Anemia Is this a current diagnosis for this admission?: No Plan: 10/14/2018-patient has history of anemia of chronic disease. Most likely secondary to underlying malignancy. Latest hemoglobin is 9.1. Plan is to continue to monitor the hemoglobin and daily basis. 10/15/2018-patient has history of anemia of chronic disease probably secondary to underlying malignancy. Hemoglobin is 9.1 stable. - Time Time Spent with patient: 15-24 minutes Medications reviewed and adjusted accordingly: Yes Anticipated discharge: SNF
[2018-10-15] MEDS: ALBUMIN HUMAN 12.5 GM/50 ML RTUINJ IV SCH ×4 (10:18→14:55)
[2018-10-15] MEDS: ASPIRIN 81 MG TABLET, CHEWABLE JT SCH (10:20)
[2018-10-15] MEDS: LISINOPRIL 5 MG TABLET PO SCH (10:20)
[2018-10-15] MEDS: SERTRALINE HCL 50 MG TABLET JT SCH (10:20)
[2018-10-15] MEDS: CLOBETASOL PROPIONATE 0.05% OINTMENT 15 GM TP SCH ×2 (10:21→22:28)
[2018-10-15] MEDS: FAMOTIDINE INJ/PF 20 MG/2 ML SDV IV SCH ×2 (10:23→22:27)
[2018-10-15] MEDS: FUROSEMIDE INJ/PF 20 MG/2 ML SDV IV SCH (10:23)
[2018-10-15] MEDS: FAMOTIDINE 20 MG TABLET PO SCH (10:42)
[2018-10-15] MEDS ORDERED: POTASSIUM CHLORIDE 20 MEQ/50 ML RTU IV ONE (14:30)
[2018-10-15 17:15] LABS: BLOOD UREA NITROGEN 4 mg/dL (7-20); CALCIUM 7.8 mg/dL (8.4-10.2); GLUCOSE 138 mg/dL (75-110); POTASSIUM 3.6 mmol/L (3.6-5.0)
[2018-10-15 17:27] LABS: CHLORIDE 109 mmol/L (98-107)
[2018-10-15 17:28] LABS: ANION GAP 4 (5-19); CARBON DIOXIDE 26 mmol/L (22-30); SODIUM 138.8 mmol/L (137-145)
[2018-10-16] MEDS: MORPHINE SULFATE 10 MG/ML INJ IV PRN ×4 (01:39→21:55)
[2018-10-16] MEDS: FUROSEMIDE INJ/PF 20 MG/2 ML SDV IV SCH ×3 (01:42→22:11)
[2018-10-16] MEDS: MONTELUKAST SODIUM 10 MG TABLET JT SCH ×2 (02:19→22:15)
[2018-10-16] MEDS: INSULIN REG, HUMAN 100 UNIT/ML 3 ML VIAL (PYX) SUBCUT SCH ×4 (02:22→19:01)
[2018-10-16] MEDS: FAMOTIDINE 20 MG TABLET PO SCH (02:23)
[2018-10-16] MEDS: METRONIDAZOLE 500 MG/NS RTU 500 MG/100 ML RTUPB IV SCH ×3 (04:17→19:03)
[2018-10-16] MEDS: METOPROLOL TARTRATE PF/INJ 5 MG/5 ML SDV IV SCH ×4 (04:18→21:57)
[2018-10-16] MEDS: CEFAZOLIN 1 GM/D5W RTU 1 GM/50 ML RTUPB IV SCH ×3 (06:49→22:05)
[2018-10-16] MEDS: HEPARIN SOD (PORCINE) 5,000 UNIT/ML 1 ML SYRINGE SUBCUT SCH ×3 (06:53→22:10)
--- NOTE | 2018-10-16 07:33 | PDOC PROGRESS REPORT ---
Subjective Progress Note for:: 10/16/18 Subjective:: feels better transferred to nursing floor passed flatus yesterday dwight tube feeds will start clear liquids today dc rankin physical rx labs pending. Reason For Visit: C25.9 MALIGNANT NEOPLASM OF PANCREAS, UNSPECIFIED Physical Exam Vital Signs: Temp Pulse Resp BP Pulse Ox 98.2 F 96 17 118/65 92 10/16/18 00:00 10/16/18 00:00 10/16/18 00:00 10/16/18 00:00 10/15/18 20:11 Intake & Output 10/15/18 10/16/18 10/17/18 06:59 06:59 06:59 Intake Total 1737 1476 Output Total 995 2060 Balance 742 -584 Weight 77.9 kg 77.5 kg General appearance: PRESENT: no acute distress Head exam: PRESENT: normocephalic Eye exam: PRESENT: EOMI Mouth exam: PRESENT: moist Neck exam: PRESENT: full ROM Respiratory exam: PRESENT: clear to auscultation valarie Cardiovascular exam: PRESENT: rubs Pulses: PRESENT: normal radial pulses, normal femoral pulses GI/Abdominal exam: PRESENT: soft, other - wound around previous g-tube, sl e rythematous no drainage. Rectal exam: PRESENT: deferred Extremities exam: PRESENT: full ROM Musculoskeletal exam: PRESENT: full ROM Neurological exam: PRESENT: alert, awake, oriented to person, oriented to place, oriented to time, oriented to situation Results Laboratory Results: 10/15/18 16:40 Sodium 138.8 Potassium 3.6 Chloride 109 H Carbon Dioxide 26 Anion Gap 4 L BUN 4 L Creatinine 0.37 L Est GFR ( Amer) > 60 Est GFR (Non-Af Amer) > 60 Glucose 138 H Calcium 7.8 L Magnesium 1.6 Impressions: KUB X-Ray 10/11/18 17:02 IMPRESSION: NASOGASTRIC TUBE IN THE STOMACH. SURGICAL HARDWARE IN THE UPPER ABDOMEN WELL. Chest X-Ray 10/14/18 06:00 IMPRESSION: Improved aeration left lung. Assessment & Plan - Diagnosis (1) Pancreatic adenocarcinoma Is this a current diagnosis for this admission?: Yes - Plan Summary Plan Summary: cont;s to do well now on nursing floor has some resumption of bowel function will start clears today' remove rankin cont iv abx 1-2 more days ok to start taking po meds orally will avoid crushing meds and using j tube for meds, as it will clog the tube phyicial rx today
[2018-10-16 07:40] LABS: ABSOLUTE EOSINOPHILS # (AUTO) 0.2 10^3/uL (0.0-0.6); ABSOLUTE LYMPHOCYTES (AUTO) 1.4 10^3/uL (0.5-4.7); ABSOLUTE MONOCYTES (AUTO) 0.7 10^3/uL (0.1-1.4); ABSOLUTE NEUT (AUTO) 5.2 10^3/uL (1.7-8.2); BASOPHILS % (AUTO) 0.2 % (0-2); EOSINOPHILS % (AUTO) 2.2 % (0-6); HEMATOCRIT 25.8 % (36.0-47.0); HEMOGLOBIN 8.8 g/dL (12.0-15.5); LYMPHOCYTES % (AUTO) 18.3 % (13-45); MEAN CORPUSCULAR HEMOGLOBIN 31.8 pg (27.0-33.4); MEAN CORPUSCULAR HGB CONC 34.2 g/dL (32.0-36.0); MEAN CORPUSCULAR VOLUME 93 fl (80-97); MONOCYTES % (AUTO) 9.4 % (3-13); RED BLOOD COUNT 2.78 10^6/uL (3.72-5.28); RED CELL DISTRIBUTION WIDTH 18.4 % (11.5-14.0); SEGMENTED NEUTROPHILS % (AUTO) 69.9 % (42-78); TOTAL CELLS COUNTED % (AUTO) 100 %; WHITE BLOOD COUNT 7.5 10^3/uL (4.0-10.5)
[2018-10-16 07:54] LABS: ALANINE AMINOTRANSFERASE 27 U/L (9-52); ALBUMIN 2.1 g/dL (3.5-5.0); ALKALINE PHOSPHATASE 69 U/L (38-126); ANION GAP 6 (5-19); ASPARTATE AMINO TRANSFERASE 14 U/L (14-36); BILIRUBIN,DIRECT 0.4 mg/dL (0.0-0.4); BILIRUBIN,TOTAL 0.5 mg/dL (0.2-1.3); BLOOD UREA NITROGEN 4 mg/dL (7-20); CALCIUM 7.6 mg/dL (8.4-10.2); CARBON DIOXIDE 25 mmol/L (22-30); CHLORIDE 109 mmol/L (98-107); GLUCOSE 158 mg/dL (75-110); POTASSIUM 3.5 mmol/L (3.6-5.0)
[2018-10-16 08:31] LABS: PLATELET COUNT 89 10^3/uL (150-450)
[2018-10-16] MEDS: PRAMIPEXOLE DI-HCL 0.5 MG TABLET JT SCH ×2 (09:26→19:02)
[2018-10-16] MEDS: SERTRALINE HCL 50 MG TABLET JT SCH (09:41)
[2018-10-16] MEDS: LISINOPRIL 5 MG TABLET PO SCH (09:41)
[2018-10-16] MEDS: ASPIRIN 81 MG TABLET, CHEWABLE JT SCH (09:41)
[2018-10-16] MEDS: FAMOTIDINE INJ/PF 20 MG/2 ML SDV IV SCH ×2 (09:42→22:15)
[2018-10-16] MEDS: MAGNESIUM SULFATE/D5W 1 GM/100 ML RTUPB IV SCH ×3 (09:43→18:53)
[2018-10-16] MEDS: CLOBETASOL PROPIONATE 0.05% OINTMENT 15 GM TP SCH ×2 (09:59→22:18)
--- NOTE | 2018-10-16 16:52 | PDOC PROGRESS REPORT ---
Subjective Progress Note for:: 10/16/18 Subjective:: This is a 68 yr old female with a PMH of pancreatic cancer, mitral valve disorder, hypertension, diabetes mellitus who was admitted under surgery for Whipple's procedure on 10/11/2018 which was successful. Hospitalist service was consulted for medical co-management. No acute issues. She continues to do well. Diet has been advanced to clear liquids. She is passing out gas but has not had a BM yet. Sugars are at goal in the 160-170s. Blood pressures are also well controlled. Reason For Visit: C25.9 MALIGNANT NEOPLASM OF PANCREAS, UNSPECIFIED Physical Exam Vital Signs: Temp Pulse Resp BP Pulse Ox 98.5 F 95 18 118/68 93 10/16/18 07:38 10/16/18 07:38 10/16/18 07:38 10/16/18 07:38 10/16/18 07:38 Intake & Output 10/15/18 10/16/18 10/17/18 06:59 06:59 06:59 Intake Total 1737 1476 250 Output Total 995 2060 Balance 742 -584 250 Weight 171 lb 11.841 oz 170 lb 13.732 oz General appearance: PRESENT: no acute distress, well-developed, well-nourished Head exam: PRESENT: atraumatic, normocephalic Eye exam: PRESENT: conjunctiva pink, EOMI, PERRLA. ABSENT: scleral icterus Ear exam: PRESENT: normal external ear exam Mouth exam: PRESENT: moist, tongue midline Neck exam: ABSENT: carotid bruit, JVD, lymphadenopathy, thyromegaly Respiratory exam: PRESENT: clear to auscultation valarie. ABSENT: rales, rhonchi, wheezes Cardiovascular exam: PRESENT: RRR. ABSENT: diastolic murmur, rubs, systolic murmur GI/Abdominal exam: PRESENT: normal bowel sounds, soft, other - midline surgical incision with RUPESH drain. ABSENT: distended, guarding, mass, organolmegaly, rebound, tenderness Rectal exam: PRESENT: deferred Neurological exam: PRESENT: alert, awake, oriented to person, oriented to place, oriented to time, oriented to situation, CN II-XII grossly intact. ABSENT: motor sensory deficit Results Laboratory Results: 10/16/18 06:57 10/16/18 06:57 10/15/18 10/16/18 10/16/18 16:40 06:57 06:57 WBC 7.5 RBC 2.78 L Hgb 8.8 L Hct 25.8 L MCV 93 MCH 31.8 MCHC 34.2 RDW 18.4 H Plt Count 89 L Seg Neutrophils % 69.9 Lymphocytes % 18.3 Monocytes % 9.4 Eosinophils % 2.2 Basophils % 0.2 Absolute Neutrophils 5.2 Absolute Lymphocytes 1.4 Absolute Monocytes 0.7 Absolute Eosinophils 0.2 Absolute Basophils 0.0 Sodium 138.8 140.0 Potassium 3.6 3.5 L Chloride 109 H 109 H Carbon Dioxide 26 25 Anion Gap 4 L 6 BUN 4 L 4 L Creatinine 0.37 L 0.36 L Est GFR ( Amer) > 60 > 60 Est GFR (Non-Af Amer) > 60 > 60 Glucose 138 H 158 H Calcium 7.8 L 7.6 L Magnesium 1.6 1.4 L Total Bilirubin 0.5 AST 14 ALT 27 Alkaline Phosphatase 69 Total Protein 4.0 L Albumin 2.1 L Impressions: KUB X-Ray 10/11/18 17:02 IMPRESSION: NASOGASTRIC TUBE IN THE STOMACH. SURGICAL HARDWARE IN THE UPPER ABDOMEN WELL. Chest X-Ray 10/14/18 06:00 IMPRESSION: Improved aeration left lung. Assessment and Plan - Diagnosis (1) Pancreatic adenocarcinoma Is this a current diagnosis for this admission?: Yes Plan: S/ P Whipple's procedure on 10/11/18. Primary service following. (2) HTN (hypertension) Is this a current diagnosis for this admission?: Yes Plan: Blood pressures are also well controlled. Continue lisinopril. (3) Diabetes mellitus Is this a current diagnosis for this admission?: Yes Plan: Sugars are at goal in the 160-170s. Continue sliding scale. (4) Hypokalemia Is this a current diagnosis for this admission?: Yes Plan: Repeat potassium is 3.5. Will continue to monitor electrolytes. (5) Hypomagnesemia Is this a current diagnosis for this admission?: Yes Plan: Repeat Mg level today.
[2018-10-16] MEDS: POTASSIUM CHLORIDE 10 MEQ CAPSULE.ER PO SCH (19:02)
[2018-10-17] MEDS: METRONIDAZOLE 500 MG/NS RTU 500 MG/100 ML RTUPB IV SCH ×3 (02:37→18:29)
[2018-10-17] MEDS: INSULIN REG, HUMAN 100 UNIT/ML 3 ML VIAL (PYX) SUBCUT SCH ×4 (02:42→18:30)
[2018-10-17] MEDS: METOPROLOL TARTRATE PF/INJ 5 MG/5 ML SDV IV SCH ×4 (02:43→23:02)
[2018-10-17 05:16] LABS: ABSOLUTE EOSINOPHILS # (AUTO) 0.1 10^3/uL (0.0-0.6); ABSOLUTE LYMPHOCYTES (AUTO) 1.2 10^3/uL (0.5-4.7); ABSOLUTE MONOCYTES (AUTO) 0.9 10^3/uL (0.1-1.4); ABSOLUTE NEUT (AUTO) 5.3 10^3/uL (1.7-8.2); BASOPHILS % (AUTO) 0.3 % (0-2); EOSINOPHILS % (AUTO) 0.9 % (0-6); HEMATOCRIT 25.3 % (36.0-47.0); HEMOGLOBIN 8.7 g/dL (12.0-15.5); LYMPHOCYTES % (AUTO) 16.1 % (13-45); MEAN CORPUSCULAR HEMOGLOBIN 31.9 pg (27.0-33.4); MEAN CORPUSCULAR HGB CONC 34.2 g/dL (32.0-36.0); MEAN CORPUSCULAR VOLUME 93 fl (80-97); MONOCYTES % (AUTO) 11.6 % (3-13); RED BLOOD COUNT 2.72 10^6/uL (3.72-5.28); SEGMENTED NEUTROPHILS % (AUTO) 71.1 % (42-78); TOTAL CELLS COUNTED % (AUTO) 100 %; WHITE BLOOD COUNT 7.5 10^3/uL (4.0-10.5)
[2018-10-17] MEDS: CEFAZOLIN 1 GM/D5W RTU 1 GM/50 ML RTUPB IV SCH ×3 (05:36→22:12)
[2018-10-17] MEDS: HEPARIN SOD (PORCINE) 5,000 UNIT/ML 1 ML SYRINGE SUBCUT SCH ×3 (05:38→23:03)
[2018-10-17] MEDS: MORPHINE SULFATE 10 MG/ML INJ IV PRN ×4 (05:43→22:10)
[2018-10-17 05:50] LABS: PLATELET COUNT 92 10^3/uL (150-450)
--- NOTE | 2018-10-17 08:01 | PDOC PROGRESS REPORT ---
Subjective Progress Note for:: 10/17/18 Subjective:: feels better passing flatus min abd pain Reason For Visit: C25.9 MALIGNANT NEOPLASM OF PANCREAS, UNSPECIFIED Physical Exam Vital Signs: Temp Pulse Resp BP Pulse Ox 98.0 F 92 16 95/47 L 92 10/17/18 00:06 10/17/18 00:06 10/17/18 00:06 10/17/18 00:06 10/17/18 00:06 Intake & Output 10/16/18 10/17/18 10/18/18 06:59 06:59 06:59 Intake Total 1476 1506 50 Output Total 2061 7174 Balance -876 -943 50 Weight 77.5 kg 78.7 kg General appearance: PRESENT: no acute distress Eye exam: PRESENT: EOMI Mouth exam: PRESENT: moist Neck exam: PRESENT: full ROM Respiratory exam: PRESENT: clear to auscultation valarie Cardiovascular exam: PRESENT: RRR Pulses: PRESENT: normal radial pulses, normal femoral pulses GI/Abdominal exam: PRESENT: soft Musculoskeletal exam: PRESENT: full ROM Neurological exam: PRESENT: alert, awake, oriented to person, oriented to place, oriented to time, oriented to situation Psychiatric exam: PRESENT: appropriate affect Results Laboratory Results: 10/17/18 04:14 10/16/18 06:57 10/16/18 10/16/18 10/17/18 06:57 06:57 04:14 WBC 7.5 7.5 RBC 2.78 L 2.72 L Hgb 8.8 L 8.7 L Hct 25.8 L 25.3 L MCV 93 93 MCH 31.8 31.9 MCHC 34.2 34.2 RDW 18.4 H 18.0 H Plt Count 89 L 92 L Seg Neutrophils % 69.9 71.1 Lymphocytes % 18.3 16.1 Monocytes % 9.4 11.6 Eosinophils % 2.2 0.9 Basophils % 0.2 0.3 Absolute Neutrophils 5.2 5.3 Absolute Lymphocytes 1.4 1.2 Absolute Monocytes 0.7 0.9 Absolute Eosinophils 0.2 0.1 Absolute Basophils 0.0 0.0 Sodium 140.0 Potassium 3.5 L Chloride 109 H Carbon Dioxide 25 Anion Gap 6 BUN 4 L Creatinine 0.36 L Est GFR ( Amer) > 60 Est GFR (Non-Af Amer) > 60 Glucose 158 H Calcium 7.6 L Magnesium 1.4 L Total Bilirubin 0.5 AST 14 ALT 27 Alkaline Phosphatase 69 Total Protein 4.0 L Albumin 2.1 L Impressions: KUB X-Ray 10/11/18 17:02 IMPRESSION: NASOGASTRIC TUBE IN THE STOMACH. SURGICAL HARDWARE IN THE UPPER ABDOMEN WELL. Chest X-Ray 10/14/18 06:00 IMPRESSION: Improved aeration left lung. Assessment & Plan - Diagnosis (1) Pancreatic adenocarcinoma Is this a current diagnosis for this admission?: Yes - Plan Summary Plan Summary: doing well has no been getting out of bed much walked once or twice iwth pt taking clears no bm, + flatus abd soft decreased cellulitis around old g-tube site plan increase activity increase tube feeds encourage out of bed.
[2018-10-17 08:24] LABS: ALANINE AMINOTRANSFERASE 32 U/L (9-52); ALBUMIN 2.1 g/dL (3.5-5.0); ALKALINE PHOSPHATASE 72 U/L (38-126); ASPARTATE AMINO TRANSFERASE 18 U/L (14-36); BILIRUBIN,DIRECT 0.3 mg/dL (0.0-0.4); BILIRUBIN,TOTAL 0.3 mg/dL (0.2-1.3); BLOOD UREA NITROGEN 6 mg/dL (7-20); CALCIUM 7.4 mg/dL (8.4-10.2); CARBON DIOXIDE 29 mmol/L (22-30); CHLORIDE 106 mmol/L (98-107); GLUCOSE 88 mg/dL (75-110); POTASSIUM 3.9 mmol/L (3.6-5.0); TOTAL PROTEIN 4.2 g/dL (6.3-8.2)
[2018-10-17 08:30] LABS: ANION GAP 5 (5-19); SODIUM 139.6 mmol/L (137-145)
[2018-10-17] MEDS: FAMOTIDINE INJ/PF 20 MG/2 ML SDV IV SCH ×2 (10:13→22:12)
[2018-10-17] MEDS: POTASSIUM CHLORIDE 10 MEQ CAPSULE.ER PO SCH (10:15)
[2018-10-17] MEDS: LISINOPRIL 5 MG TABLET PO SCH (10:15)
[2018-10-17] MEDS: SERTRALINE HCL 50 MG TABLET JT SCH (10:16)
[2018-10-17] MEDS: ASPIRIN 81 MG TABLET, CHEWABLE JT SCH (10:16)
[2018-10-17] MEDS: CLOBETASOL PROPIONATE 0.05% OINTMENT 15 GM TP SCH ×2 (10:17→23:03)
[2018-10-17] MEDS: FUROSEMIDE INJ/PF 20 MG/2 ML SDV IV SCH ×2 (11:49→23:06)
--- NOTE | 2018-10-17 14:31 | PDOC PROGRESS REPORT ---
Subjective Progress Note for:: 10/17/18 Subjective:: This is a 68 yr old female with a PMH of pancreatic cancer, mitral valve disorder, hypertension, diabetes mellitus who was admitted under surgery for Whipple's procedure on 10/11/2018 which was successful. Hospitalist service was consulted for medical co-management. 10/16: She continues to do well. Diet has been advanced to clear liquids. She is passing out gas but has not had a BM yet. Sugars are at goal in the 160-170s. 10/17: No acute issues. She continues to feel better. No abdominal pain upon encounter. Sugars running on the low end in the 70-80s. Blood pressures are also well controlled. Encouraged to increase oral intake. Tube feeding also increased by surgery. Reason For Visit: C25.9 MALIGNANT NEOPLASM OF PANCREAS, UNSPECIFIED Physical Exam Vital Signs: Temp Pulse Resp BP Pulse Ox 98.2 F 78 16 110/70 96 10/17/18 12:00 10/17/18 12:00 10/17/18 12:00 10/17/18 12:00 10/17/18 11:06 Intake & Output 10/16/18 10/17/18 10/18/18 06:59 06:59 06:59 Intake Total 1476 1506 150 Output Total 2060 2475 Balance -584 -969 150 Weight 170 lb 13.732 oz 173 lb 8.061 oz General appearance: PRESENT: no acute distress, well-developed, well-nourished Head exam: PRESENT: atraumatic, normocephalic Eye exam: PRESENT: conjunctiva pink, EOMI, PERRLA. ABSENT: scleral icterus Ear exam: PRESENT: normal external ear exam Mouth exam: PRESENT: moist, tongue midline Neck exam: ABSENT: carotid bruit, JVD, lymphadenopathy, thyromegaly Respiratory exam: PRESENT: clear to auscultation valarie. ABSENT: rales, rhonchi, wheezes Cardiovascular exam: PRESENT: RRR. ABSENT: diastolic murmur, rubs, systolic murmur Pulses: PRESENT: normal dorsalis pedis pul GI/Abdominal exam: PRESENT: normal bowel sounds, soft, other - midline surgical inscision appears to be healing well. ABSENT: distended, guarding, mass, organolmegaly, rebound, tenderness Rectal exam: PRESENT: deferred Neurological exam: PRESENT: alert, awake, oriented to person, oriented to place, oriented to time, oriented to situation, CN II-XII grossly intact. ABSENT: motor sensory deficit Results Laboratory Results: 10/17/18 04:14 10/17/18 04:14 10/17/18 10/17/18 04:14 04:14 WBC 7.5 RBC 2.72 L Hgb 8.7 L Hct 25.3 L MCV 93 MCH 31.9 MCHC 34.2 RDW 18.0 H Plt Count 92 L Seg Neutrophils % 71.1 Lymphocytes % 16.1 Monocytes % 11.6 Eosinophils % 0.9 Basophils % 0.3 Absolute Neutrophils 5.3 Absolute Lymphocytes 1.2 Absolute Monocytes 0.9 Absolute Eosinophils 0.1 Absolute Basophils 0.0 Sodium 139.6 Potassium 3.9 Chloride 106 Carbon Dioxide 29 Anion Gap 5 BUN 6 L Creatinine 0.41 L Est GFR ( Amer) > 60 Est GFR (Non-Af Amer) > 60 Glucose 88 Calcium 7.4 L Total Bilirubin 0.3 AST 18 ALT 32 Alkaline Phosphatase 72 Total Protein 4.2 L Albumin 2.1 L Impressions: KUB X-Ray 10/11/18 17:02 IMPRESSION: NASOGASTRIC TUBE IN THE STOMACH. SURGICAL HARDWARE IN THE UPPER ABDOMEN WELL. Chest X-Ray 10/14/18 06:00 IMPRESSION: Improved aeration left lung. Assessment and Plan - Diagnosis (1) Pancreatic adenocarcinoma Is this a current diagnosis for this admission?: Yes Plan: S/ P Whipple's procedure on 10/11/18. Primary service following. (2) HTN (hypertension) Is this a current diagnosis for this admission?: Yes Plan: Blood pressures are well controlled. Continue lisinopril. (3) Diabetes mellitus Is this a current diagnosis for this admission?: Yes Plan: Sugars are at goal in the 160-170s. Continue sliding scale. 10/17: Sugars running on the low end in the 70-80s. Blood pressures are also well controlled. Encouraged to increase oral intake. Tube feeding also increased by surgery. (4) Hypokalemia Is this a current diagnosis for this admission?: Yes Plan: Repeat potassium is 3.5. Will continue to monitor electrolytes. 10/17: Resolved. (5) Hypomagnesemia Is this a current diagnosis for this admission?: Yes Plan: 10/17: Repeat Mg level pending.
[2018-10-17] MEDS: PRAMIPEXOLE DI-HCL 0.5 MG TABLET JT SCH (18:30)
[2018-10-17] MEDS: MONTELUKAST SODIUM 10 MG TABLET JT SCH (22:11)
[2018-10-18] MEDS: INSULIN REG, HUMAN 100 UNIT/ML 3 ML VIAL (PYX) SUBCUT SCH ×4 (00:38→17:22)
[2018-10-18] MEDS: PROMETHAZINE HCL 25 MG TABLET JT PRN ×2 (00:46→22:02)
[2018-10-18] MEDS: METRONIDAZOLE 500 MG/NS RTU 500 MG/100 ML RTUPB IV SCH ×3 (02:45→18:17)
[2018-10-18] MEDS: NORMAL SALINE 1000 ML 1,000 ML IV PRN (02:47)
[2018-10-18] MEDS: METOPROLOL TARTRATE PF/INJ 5 MG/5 ML SDV IV SCH ×4 (03:17→21:57)
[2018-10-18] MEDS: CEFAZOLIN 1 GM/D5W RTU 1 GM/50 ML RTUPB IV SCH ×3 (05:45→22:00)
[2018-10-18] MEDS: HEPARIN SOD (PORCINE) 5,000 UNIT/ML 1 ML SYRINGE SUBCUT SCH ×3 (05:46→22:04)
[2018-10-18 09:21] LABS: ABSOLUTE EOSINOPHILS # (AUTO) 0.1 10^3/uL (0.0-0.6); ABSOLUTE LYMPHOCYTES (AUTO) 1.7 10^3/uL (0.5-4.7); ABSOLUTE MONOCYTES (AUTO) 0.7 10^3/uL (0.1-1.4); ABSOLUTE NEUT (AUTO) 5.2 10^3/uL (1.7-8.2); BASOPHILS % (AUTO) 0.4 % (0-2); EOSINOPHILS % (AUTO) 1.8 % (0-6); HEMATOCRIT 30.8 % (36.0-47.0); HEMOGLOBIN 10.5 g/dL (12.0-15.5); LYMPHOCYTES % (AUTO) 21.5 % (13-45); MEAN CORPUSCULAR HEMOGLOBIN 31.8 pg (27.0-33.4); MEAN CORPUSCULAR HGB CONC 34.2 g/dL (32.0-36.0); MEAN CORPUSCULAR VOLUME 93 fl (80-97); MONOCYTES % (AUTO) 9.4 % (3-13); PLATELET COUNT 108 10^3/uL (150-450); RED BLOOD COUNT 3.31 10^6/uL (3.72-5.28); SEGMENTED NEUTROPHILS % (AUTO) 66.9 % (42-78); TOTAL CELLS COUNTED % (AUTO) 100 %; WHITE BLOOD COUNT 7.8 10^3/uL (4.0-10.5)
[2018-10-18] MEDS: ASPIRIN 81 MG TABLET, CHEWABLE JT SCH (10:05)
[2018-10-18] MEDS: POTASSIUM CHLORIDE 10 MEQ CAPSULE.ER PO SCH (10:05)
[2018-10-18] MEDS: SERTRALINE HCL 50 MG TABLET JT SCH (10:05)
[2018-10-18] MEDS: FUROSEMIDE INJ/PF 20 MG/2 ML SDV IV SCH ×2 (10:06→22:04)
[2018-10-18] MEDS: FAMOTIDINE INJ/PF 20 MG/2 ML SDV IV SCH ×2 (10:06→22:04)
[2018-10-18] MEDS: LISINOPRIL 5 MG TABLET PO SCH (10:06)
[2018-10-18 10:09] LABS: ANION GAP 5 (5-19); BLOOD UREA NITROGEN 10 mg/dL (7-20); CALCIUM 7.7 mg/dL (8.4-10.2); CARBON DIOXIDE 30 mmol/L (22-30); CHLORIDE 102 mmol/L (98-107); GLUCOSE 266 mg/dL (75-110); POTASSIUM 4.1 mmol/L (3.6-5.0); SODIUM 136.5 mmol/L (137-145)
[2018-10-18] MEDS: CLOBETASOL PROPIONATE 0.05% OINTMENT 15 GM TP SCH ×2 (10:17→22:05)
--- NOTE | 2018-10-18 12:04 | PDOC PROGRESS REPORT ---
Subjective Progress Note for:: 10/18/18 Reason For Visit: C25.9 MALIGNANT NEOPLASM OF PANCREAS, UNSPECIFIED Physical Exam Vital Signs: Temp Pulse Resp BP Pulse Ox 98.4 F 79 18 92/56 L 95 10/18/18 03:00 10/18/18 03:00 10/18/18 03:00 10/18/18 03:00 10/18/18 03:00 Intake & Output 10/17/18 10/18/18 10/19/18 06:59 06:59 06:59 Intake Total 1506 1038 Output Total 2475 880 Balance -969 158 Weight 78.7 kg 76.6 kg General appearance: PRESENT: no acute distress Head exam: PRESENT: normocephalic Eye exam: PRESENT: EOMI Mouth exam: PRESENT: moist Neck exam: PRESENT: full ROM Respiratory exam: PRESENT: clear to auscultation valarie Cardiovascular exam: PRESENT: RRR Pulses: PRESENT: normal carotid pulses, normal radial pulses GI/Abdominal exam: PRESENT: soft Rectal exam: PRESENT: deferred Musculoskeletal exam: PRESENT: full ROM Neurological exam: PRESENT: alert, awake, oriented to person, oriented to place, oriented to time Psychiatric exam: PRESENT: appropriate affect Skin exam: PRESENT: dry Results Laboratory Results: 10/18/18 09:11 10/18/18 09:11 10/17/18 10/18/18 10/18/18 21:52 09:11 09:11 WBC 7.8 RBC 3.31 L Hgb 10.5 L Hct 30.8 L MCV 93 MCH 31.8 MCHC 34.2 RDW 18.0 H Plt Count 108 L Seg Neutrophils % 66.9 Lymphocytes % 21.5 Monocytes % 9.4 Eosinophils % 1.8 Basophils % 0.4 Absolute Neutrophils 5.2 Absolute Lymphocytes 1.7 Absolute Monocytes 0.7 Absolute Eosinophils 0.1 Absolute Basophils 0.0 Sodium 136.5 L Potassium 4.1 Chloride 102 Carbon Dioxide 30 Anion Gap 5 BUN 10 Creatinine 0.38 L Est GFR ( Amer) > 60 Est GFR (Non-Af Amer) > 60 Glucose 266 H Calcium 7.7 L Magnesium 1.3 L 1.3 L Impressions: KUB X-Ray 10/11/18 17:02 IMPRESSION: NASOGASTRIC TUBE IN THE STOMACH. SURGICAL HARDWARE IN THE UPPER ABDOMEN WELL. Chest X-Ray 10/14/18 06:00 IMPRESSION: Improved aeration left lung. Assessment & Plan - Diagnosis (1) Pancreatic adenocarcinoma Is this a current diagnosis for this admission?: Yes - Plan Summary Plan Summary: s/p whipple continures to improve passing some flatus, no stool dwight clears liquids wbc lytes and h/h stable cont clears till dwight po increase activity
[2018-10-18] MEDS: MORPHINE SULFATE 10 MG/ML INJ IV PRN ×2 (15:38→22:03)
--- NOTE | 2018-10-18 17:08 | PDOC PROGRESS REPORT ---
Subjective Progress Note for:: 10/18/18 Subjective:: This is a 68 yr old female with a PMH of pancreatic cancer, mitral valve disorder, hypertension, diabetes mellitus who was admitted under surgery for Whipple's procedure on 10/11/2018 which was successful. Hospitalist service was consulted for medical co-management. 10/16: She continues to do well. Diet has been advanced to clear liquids. She is passing out gas but has not had a BM yet. Sugars are at goal in the 160-170s. 10/17: She continues to feel better. No abdominal pain upon encounter. Sugars running on the low end in the 70-80s. Blood pressures are also well controlled. Encouraged to increase oral intake. Tube feeding also increased by surgery. 10/18: No acute issues. She continues to do better. She is tolerating clear diet well. She has not had a BM yet but is passing out gas. Reason For Visit: C25.9 MALIGNANT NEOPLASM OF PANCREAS, UNSPECIFIED Physical Exam Vital Signs: Temp Pulse Resp BP Pulse Ox 98.4 F 86 17 116/69 95 10/18/18 07:30 10/18/18 07:30 10/18/18 07:30 10/18/18 07:30 10/18/18 07:30 Intake & Output 10/17/18 10/18/18 10/19/18 06:59 06:59 06:59 Intake Total 1506 1038 660 Output Total 2475 880 830 Balance -969 158 -170 Weight 173 lb 8.061 oz 168 lb 13.985 oz General appearance: PRESENT: no acute distress, well-developed, well-nourished Head exam: PRESENT: atraumatic, normocephalic Eye exam: PRESENT: conjunctiva pink, EOMI, PERRLA. ABSENT: scleral icterus Ear exam: PRESENT: normal external ear exam Mouth exam: PRESENT: moist, tongue midline Neck exam: ABSENT: carotid bruit, JVD, lymphadenopathy, thyromegaly Respiratory exam: PRESENT: clear to auscultation valarie. ABSENT: rales, rhonchi, wheezes Cardiovascular exam: PRESENT: RRR. ABSENT: diastolic murmur, rubs, systolic murmur Pulses: PRESENT: normal dorsalis pedis pul GI/Abdominal exam: PRESENT: normal bowel sounds, soft, other - midline incision, appears to be healing well. ABSENT: distended, guarding, mass, organolmegaly, rebound, tenderness Rectal exam: PRESENT: deferred Neurological exam: PRESENT: alert, awake, oriented to person, oriented to place, oriented to time, oriented to situation, CN II-XII grossly intact. ABSENT: m otor sensory deficit Results Laboratory Results: 10/18/18 09:11 10/18/18 09:11 10/17/18 10/18/18 10/18/18 21:52 09:11 09:11 WBC 7.8 RBC 3.31 L Hgb 10.5 L Hct 30.8 L MCV 93 MCH 31.8 MCHC 34.2 RDW 18.0 H Plt Count 108 L Seg Neutrophils % 66.9 Lymphocytes % 21.5 Monocytes % 9.4 Eosinophils % 1.8 Basophils % 0.4 Absolute Neutrophils 5.2 Absolute Lymphocytes 1.7 Absolute Monocytes 0.7 Absolute Eosinophils 0.1 Absolute Basophils 0.0 Sodium 136.5 L Potassium 4.1 Chloride 102 Carbon Dioxide 30 Anion Gap 5 BUN 10 Creatinine 0.38 L Est GFR ( Amer) > 60 Est GFR (Non-Af Amer) > 60 Glucose 266 H Calcium 7.7 L Magnesium 1.3 L 1.3 L Impressions: KUB X-Ray 10/11/18 17:02 IMPRESSION: NASOGASTRIC TUBE IN THE STOMACH. SURGICAL HARDWARE IN THE UPPER ABDOMEN WELL. Chest X-Ray 10/14/18 06:00 IMPRESSION: Improved aeration left lung. Assessment and Plan - Diagnosis (1) Pancreatic adenocarcinoma Is this a current diagnosis for this admission?: Yes Plan: S/ P Whipple's procedure on 10/11/18. Primary service following. (2) HTN (hypertension) Is this a current diagnosis for this admission?: Yes Plan: Blood pressures are well controlled. Continue lisinopril. (3) Diabetes mellitus Is this a current diagnosis for this admission?: Yes Plan: Sugars are at goal in the 160-170s. Continue sliding scale. 10/17: Sugars running on the low end in the 70-80s. Blood pressures are also well controlled. Encouraged to increase oral intake. Tube feeding also increased by surgery. 10/18: Sugars have improved with increase in oral intake. (4) Hypokalemia Is this a current diagnosis for this admission?: Yes Plan: Repeat potassium is 3.5. Will continue to monitor electrolytes. 10/17: Resolved. (5) Hypomagnesemia Is this a current diagnosis for this admission?: Yes Plan: 10/18: Mg this morning is 1.3. Replace Mg. Will start on scheduled oral Mg. - Time Time Spent with patient: 15-24 minutes
[2018-10-18] MEDS: PRAMIPEXOLE DI-HCL 0.5 MG TABLET JT SCH (18:16)
[2018-10-18] MEDS: LORAZEPAM 0.5 MG TABLET JT PRN (18:27)
[2018-10-18] MEDS: MAGNESIUM OXIDE 400 MG TABLET PO SCH (18:59)
[2018-10-18] MEDS: MONTELUKAST SODIUM 10 MG TABLET JT SCH (22:02)
[2018-10-19] MEDS: INSULIN REG, HUMAN 100 UNIT/ML 3 ML VIAL (PYX) SUBCUT SCH ×4 (00:02→18:08)
[2018-10-19] MEDS: METRONIDAZOLE 500 MG/NS RTU 500 MG/100 ML RTUPB IV SCH (03:20)
[2018-10-19] MEDS: METOPROLOL TARTRATE PF/INJ 5 MG/5 ML SDV IV SCH ×4 (03:21→20:44)
[2018-10-19] MEDS: MORPHINE SULFATE 10 MG/ML INJ IV PRN (05:27)
[2018-10-19] MEDS: HEPARIN SOD (PORCINE) 5,000 UNIT/ML 1 ML SYRINGE SUBCUT SCH ×3 (05:28→21:45)
[2018-10-19] MEDS: CEFAZOLIN 1 GM/D5W RTU 1 GM/50 ML RTUPB IV SCH (05:28)
[2018-10-19 06:53] LABS: ALANINE AMINOTRANSFERASE 25 U/L (9-52); ALBUMIN 1.9 g/dL (3.5-5.0); ALKALINE PHOSPHATASE 101 U/L (38-126); ANION GAP 6 (5-19); ASPARTATE AMINO TRANSFERASE 16 U/L (14-36); BILIRUBIN,DIRECT 0.3 mg/dL (0.0-0.4); BILIRUBIN,TOTAL 0.3 mg/dL (0.2-1.3); BLOOD UREA NITROGEN 12 mg/dL (7-20); CALCIUM 7.3 mg/dL (8.4-10.2); CARBON DIOXIDE 31 mmol/L (22-30); CHLORIDE 100 mmol/L (98-107); GLUCOSE 186 mg/dL (75-110); SODIUM 136.6 mmol/L (137-145); TOTAL PROTEIN 3.8 g/dL (6.3-8.2)
[2018-10-19 06:58] LABS: ABSOLUTE EOSINOPHILS # (AUTO) 0.1 10^3/uL (0.0-0.6); ABSOLUTE LYMPHOCYTES (AUTO) 1.5 10^3/uL (0.5-4.7); ABSOLUTE MONOCYTES (AUTO) 0.6 10^3/uL (0.1-1.4); ABSOLUTE NEUT (AUTO) 4.6 10^3/uL (1.7-8.2); BASOPHILS % (AUTO) 0.7 % (0-2); HEMATOCRIT 28.2 % (36.0-47.0); HEMOGLOBIN 9.4 g/dL (12.0-15.5); MEAN CORPUSCULAR HEMOGLOBIN 31.1 pg (27.0-33.4); MEAN CORPUSCULAR HGB CONC 33.2 g/dL (32.0-36.0); MEAN CORPUSCULAR VOLUME 94 fl (80-97); MONOCYTES % (AUTO) 8.5 % (3-13); RED BLOOD COUNT 3.01 10^6/uL (3.72-5.28); RED CELL DISTRIBUTION WIDTH 17.6 % (11.5-14.0); SEGMENTED NEUTROPHILS % (AUTO) 66.8 % (42-78); TOTAL CELLS COUNTED % (AUTO) 100 %; WHITE BLOOD COUNT 6.8 10^3/uL (4.0-10.5)
[2018-10-19] MEDS ORDERED: BISACODYL 10 MG SUPP.RECT PR ONE (07:30)
--- NOTE | 2018-10-19 07:30 | PDOC PROGRESS REPORT ---
Subjective Progress Note for:: 10/19/18 Subjective:: feels ok passing flatus, no bm was ambulating labs pending this am Reason For Visit: C25.9 MALIGNANT NEOPLASM OF PANCREAS, UNSPECIFIED Physical Exam Vital Signs: Temp Pulse Resp BP Pulse Ox 98.5 F 89 16 111/59 L 94 10/18/18 23:46 10/18/18 23:46 10/18/18 23:46 10/18/18 23:46 10/18/18 23:46 Intake & Output 10/18/18 10/19/18 10/20/18 06:59 06:59 06:59 Intake Total 1038 2501 Output Total 880 920 Balance 158 1581 Weight 76.6 kg 77.2 kg General appearance: PRESENT: no acute distress Head exam: PRESENT: normocephalic Eye exam: PRESENT: EOMI Mouth exam: PRESENT: moist Neck exam: PRESENT: full ROM Respiratory exam: PRESENT: clear to auscultation valarie Cardiovascular exam: PRESENT: RRR Pulses: PRESENT: normal radial pulses, normal femoral pulses GI/Abdominal exam: PRESENT: soft Rectal exam: PRESENT: deferred Musculoskeletal exam: PRESENT: full ROM Neurological exam: PRESENT: alert, awake, oriented to person, oriented to place, oriented to time, oriented to situation Psychiatric exam: PRESENT: appropriate affect Results Laboratory Results: 10/19/18 05:40 10/18/18 10/18/18 10/19/18 09:11 09:11 05:40 WBC 7.8 RBC 3.31 L Hgb 10.5 L Hct 30.8 L MCV 93 MCH 31.8 MCHC 34.2 RDW 18.0 H Plt Count 108 L Seg Neutrophils % 66.9 Lymphocytes % 21.5 Monocytes % 9.4 Eosinophils % 1.8 Basophils % 0.4 Absolute Neutrophils 5.2 Absolute Lymphocytes 1.7 Absolute Monocytes 0.7 Absolute Eosinophils 0.1 Absolute Basophils 0.0 Sodium 136.5 L 136.6 L Potassium 4.1 4.0 Chloride 102 100 Carbon Dioxide 30 31 H Anion Gap 5 6 BUN 10 12 Creatinine 0.38 L 0.39 L Est GFR ( Amer) > 60 > 60 Est GFR (Non-Af Amer) > 60 > 60 Glucose 266 H 186 H Calcium 7.7 L 7.3 L Magnesium 1.3 L Total Bilirubin 0.3 AST 16 ALT 25 Alkaline Phosphatase 101 Total Protein 3.8 L Albumin 1.9 L Impressions: KUB X-Ray 10/11/18 17:02 IMPRESSION: NASOGASTRIC TUBE IN THE STOMACH. SURGICAL HARDWARE IN THE UPPER ABDOMEN WELL. Chest X-Ray 10/14/18 06:00 IMPRESSION: Improved aeration left lung. Assessment & Plan - Diagnosis (1) Pancreatic adenocarcinoma Is this a current diagnosis for this admission?: Yes - Plan Summary Plan Summary: conts to do well now pod#8 still passing only flatus abd soft, wound clean, jaycee serous + bs will cont with tube feeds at 40cc/hr cont po clears dulcolax suppository today
[2018-10-19 07:50] LABS: PLATELET COUNT 89 10^3/uL (150-450)
[2018-10-19] MEDS: CLOBETASOL PROPIONATE 0.05% OINTMENT 15 GM TP SCH ×2 (09:50→21:46)
[2018-10-19] MEDS: FAMOTIDINE INJ/PF 20 MG/2 ML SDV IV SCH ×2 (10:06→21:45)
[2018-10-19] MEDS: ASPIRIN 81 MG TABLET, CHEWABLE JT SCH (10:07)
[2018-10-19] MEDS: POTASSIUM CHLORIDE 10 MEQ CAPSULE.ER PO SCH (10:07)
[2018-10-19] MEDS: SERTRALINE HCL 50 MG TABLET JT SCH (10:07)
[2018-10-19] MEDS: MAGNESIUM OXIDE 400 MG TABLET PO SCH ×2 (10:07→18:06)
[2018-10-19] MEDS ORDERED: MAGNESIUM SULFATE 4 GM/D5W 100 ML IV ONE (11:00)
[2018-10-19] MEDS: LISINOPRIL 5 MG TABLET PO SCH (12:50)
[2018-10-19] MEDS: FUROSEMIDE INJ/PF 20 MG/2 ML SDV IV SCH ×2 (12:50→21:45)
[2018-10-19] MEDS ORDERED: KETOROLAC TROMETHAMINE 10 MG TABLET PO PRN (13:18)
--- NOTE | 2018-10-19 13:43 | PDOC PROGRESS REPORT ---
Subjective Progress Note for:: 10/19/18 Subjective:: This is a 68 yr old female with a PMH of pancreatic cancer, mitral valve disorder, hypertension, diabetes mellitus who was admitted under surgery for Whipple's procedure on 10/11/2018 which was successful. Hospitalist service was consulted for medical co-management. 10/16: She continues to do well. Diet has been advanced to clear liquids. She is passing out gas but has not had a BM yet. Sugars are at goal in the 160-170s. 10/17: She continues to feel better. No abdominal pain upon encounter. Sugars running on the low end in the 70-80s. Blood pressures are also well controlled. Encouraged to increase oral intake. Tube feeding also increased by surgery. 10/18: She continues to do better. She is tolerating clear diet well. She has not had a BM yet but is passing out gas. 10/19: No acute issues overnight. She continues to tolerate clears well. She is passing out gas but has not had a BM yet. Surgery has added dulcolax. Called by RN that patient fell on her buttocks while trying to use the commode. Reason For Visit: C25.9 MALIGNANT NEOPLASM OF PANCREAS, UNSPECIFIED Physical Exam Vital Signs: Temp Pulse Resp BP Pulse Ox 98.2 F 75 21 H 93/60 L 92 10/19/18 07:55 10/19/18 07:55 10/19/18 07:55 10/19/18 07:55 10/19/18 07:55 Intake & Output 10/18/18 10/19/18 10/20/18 06:59 06:59 06:59 Intake Total 1038 2501 Output Total 880 920 Balance 158 1581 Weight 168 lb 13.985 oz 170 lb 3.15 oz General appearance: PRESENT: no acute distress, well-developed, well-nourished Head exam: PRESENT: atraumatic, normocephalic Eye exam: PRESENT: conjunctiva pink, EOMI, PERRLA. ABSENT: scleral icterus Ear exam: PRESENT: normal external ear exam Mouth exam: PRESENT: moist, tongue midline Neck exam: ABSENT: carotid bruit, JVD, lymphadenopathy, thyromegaly Respiratory exam: PRESENT: clear to auscultation valarie. ABSENT: rales, rhonchi, wheezes Cardiovascular exam: PRESENT: RRR. ABSENT: diastolic murmur, rubs, systolic murmur Pulses: PRESENT: normal dorsalis pedis pul Vascular exam: PRESENT: normal capillary refill GI/Abdominal exam: PRESENT: normal bowel sounds, soft. ABSENT: distended, guarding, mass, organolmegaly, rebound, tenderness Rectal exam: PRESENT: deferred Neurological exam: PRESENT: alert, awake, oriented to person, oriented to place, oriented to time, oriented to situation, CN II-XII grossly intact. ABSENT: motor sensory deficit Results Laboratory Results: 10/19/18 05:40 10/19/18 05:40 10/04/18 10/19/18 10/19/18 10:26 05:40 05:40 WBC 6.8 RBC 3.01 L Hgb 9.4 L Hct 28.2 L MCV 94 MCH 31.1 MCHC 33.2 RDW 17.6 H Plt Count 89 L Seg Neutrophils % 66.8 Lymphocytes % 22.0 Monocytes % 8.5 Eosinophils % 2.0 Basophils % 0.7 Absolute Neutrophils 4.6 Absolute Lymphocytes 1.5 Absolute Monocytes 0.6 Absolute Eosinophils 0.1 Absolute Basophils 0.0 Sodium 136.6 L Potassium 4.0 Chloride 100 Carbon Dioxide 31 H Anion Gap 6 BUN 12 Creatinine 0.39 L Est GFR ( Amer) > 60 Est GFR (Non-Af Amer) > 60 Glucose 186 H Calcium 7.3 L Magnesium Total Bilirubin 0.3 AST 16 ALT 25 Alkaline Phosphatase 101 Total Protein 3.8 L Albumin 1.9 L Blood Type B POSITIVE Antibody Screen NEGATIVE 10/19/18 05:40 WBC RBC Hgb Hct MCV MCH MCHC RDW Plt Count Seg Neutrophils % Lymphocytes % Monocytes % Eosinophils % Basophils % Absolute Neutrophils Absolute Lymphocytes Absolute Monocytes Absolute Eosinophils Absolute Basophils Sodium Potassium Chloride Carbon Dioxide Anion Gap BUN Creatinine Est GFR ( Amer) Est GFR (Non-Af Amer) Glucose Calcium Magnesium 1.2 L* Total Bilirubin AST ALT Alkaline Phosphatase Total Protein Albumin Blood Type Antibody Screen Impressions: KUB X-Ray 10/11/18 17:02 IMPRESSION: NASOGASTRIC TUBE IN THE STOMACH. SURGICAL HARDWARE IN THE UPPER ABDOMEN WELL. Chest X-Ray 10/14/18 06:00 IMPRESSION: Improved aeration left lung. Assessment and Plan - Diagnosis (1) Pancreatic adenocarcinoma Is this a current diagnosis for this admission?: Yes Plan: S/ P Whipple's procedure on 10/11/18. Primary service following. (2) HTN (hypertension) Is this a current diagnosis for this admission?: Yes Plan: Blood pressures are well controlled. Continue lisinopril. (3) Diabetes mellitus Is this a current diagnosis for this admission?: Yes Plan: Sugars are at goal in the 160-170s. Continue sliding scale. 10/17: Sugars running on the low end in the 70-80s. Blood pressures are also well controlled. Encouraged to increase oral intake. Tube feeding also increased by surgery. 10/18: Sugars have improved with increase in oral intake. (4) Hypomagnesemia Is this a current diagnosis for this admission?: Yes Plan: 10/18: Mg this morning is 1.3. Replace Mg. Will start on scheduled oral Mg. 10/19: MG is low again at 1.2. Replace with 4 gms IV. Will increase schedule PO Mg. (5) Hypokalemia Is this a current diagnosis for this admission?: Yes Plan: Repeat potassium is 3.5. Will continue to monitor electrolytes. 10/17: Resolved. - Time Time Spent with patient: 15-24 minutes
--- NOTE | 2018-10-19 14:09 | RADIOLOGY REPORT (SQ) ---
EXAM DESCRIPTION: PELVIS AP COMPLETED DATE/TIME: 10/19/2018 1:53 pm REASON FOR STUDY: Patient fall. C25.9 MALIGNANT NEOPLASM OF PANCREAS, UNSPECIFIED COMPARISON: None. NUMBER OF VIEWS: One view TECHNIQUE: AP Pelvis LIMITATIONS: None. FINDINGS: MINERALIZATION: Normal. HIPS: No acute fracture or dislocation. Hardware in the left femur. No worrisome bone lesions. PELVIS AND SACRUM: No acute fracture or dislocation. No worrisome bone lesions. PUBIS AND ISCHIUM: No acute fracture. LOWER LUMBAR SPINE: No significant findings as visualized. SOFT TISSUES: No findings. OTHER: No other significant finding. IMPRESSION: NEGATIVE STUDY OF THE PELVIS. COMMENT: Pelvic fractures are often occult on plain radiographs. If strong clinical suspicion for f racture, recommend CT or MR. TECHNICAL DOCUMENTATION: JOB ID: [id number] [employer]- All Rights Reserved Reading location - IP/workstation name: [email or web address]
--- NOTE | 2018-10-19 14:12 | RADIOLOGY REPORT (SQ) ---
EXAM DESCRIPTION: L SPINE 2 VIEWS COMPLETED DATE/TIME: 10/19/2018 1:53 pm REASON FOR STUDY: Patient fall C25.9 MALIGNANT NEOPLASM OF PANCREAS, UNSPECIFIED COMPARISON: 05/17/2012. NUMBER OF VIEWS: Three views. TECHNIQUE: AP, lateral, and inferior coned down lateral views of the lumbar spine. LIMITATIONS: None. FINDINGS: MINERALIZATION: Normal. SEGMENTATION: Normal. No transitional anatomy. ALIGNMENT: Normal. VERTEBRAE: Anterior wedge deformity of the T12 vertebral body. Lumbar vertebrae intact. DISCS: Multilevel disc space narrowing with osteophytes. POSTERIOR ELEMENTS: Pedicles and facets are intact. No pars defect or posterior arch defects. Facet arthropathy is present. HARDWARE: None in the spine. PARASPINAL SOFT TISSUES: Normal. PELVIS: Intact as visualized. No fractures or worrisome bone lesions. SI joints intact. OTHER: No other significant finding. IMPRESSION: 1. ANTERIOR WEDGE DEFORMITY OF THE T12 VERTEBRAL BODY, AGE INDETERMINATE. PROBABLY OLD. IF THERE IS STRONG CLINICAL CONCERN, MAY CONSIDER CT OF THE LUMBAR SPINE TO INCLUDE THE LOWER THORACIC VERTEBRAE . 2. MULTILEVEL CHRONIC DEGENERATIVE CHANGES. TECHNICAL DOCUMENTATION: JOB ID: [id number] [employer]- All Rights Reserved Reading location - IP/workstation name: [email or web address]
[2018-10-19] MEDS: NORMAL SALINE 1000 ML 1,000 ML IV PRN (15:54)
[2018-10-19] MEDS: PRAMIPEXOLE DI-HCL 0.5 MG TABLET JT SCH (18:08)
[2018-10-19] MEDS: MONTELUKAST SODIUM 10 MG TABLET JT SCH (21:46)
[2018-10-19] MEDS: KETOROLAC TROMETHAMINE 10 MG TABLET PO PRN (21:47)
[2018-10-20] MEDS: INSULIN REG, HUMAN 100 UNIT/ML 3 ML VIAL (PYX) SUBCUT SCH ×4 (01:19→17:39)
[2018-10-20] MEDS: LORAZEPAM 0.5 MG TABLET JT PRN (01:23)
[2018-10-20] MEDS: METOPROLOL TARTRATE PF/INJ 5 MG/5 ML SDV IV SCH ×4 (03:59→21:01)
[2018-10-20] MEDS: HEPARIN SOD (PORCINE) 5,000 UNIT/ML 1 ML SYRINGE SUBCUT SCH ×3 (05:49→21:02)
[2018-10-20] MEDS: POTASSIUM CHLORIDE 10 MEQ CAPSULE.ER PO SCH (09:46)
[2018-10-20] MEDS: ASPIRIN 81 MG TABLET, CHEWABLE JT SCH (09:46)
[2018-10-20] MEDS: FAMOTIDINE INJ/PF 20 MG/2 ML SDV IV SCH ×2 (09:46→21:05)
[2018-10-20] MEDS: MAGNESIUM OXIDE 400 MG TABLET PO SCH ×2 (09:46→17:38)
[2018-10-20] MEDS: SERTRALINE HCL 50 MG TABLET JT SCH (09:47)
[2018-10-20] MEDS: CLOBETASOL PROPIONATE 0.05% OINTMENT 15 GM TP SCH ×2 (09:51→21:06)
[2018-10-20 10:31] LABS: ABSOLUTE EOSINOPHILS # (AUTO) 0.1 10^3/uL (0.0-0.6); ABSOLUTE LYMPHOCYTES (AUTO) 1.5 10^3/uL (0.5-4.7); ABSOLUTE MONOCYTES (AUTO) 0.7 10^3/uL (0.1-1.4); ABSOLUTE NEUT (AUTO) 5.9 10^3/uL (1.7-8.2); BASOPHILS % (AUTO) 0.3 % (0-2); EOSINOPHILS % (AUTO) 1.6 % (0-6); HEMATOCRIT 26.7 % (36.0-47.0); LYMPHOCYTES % (AUTO) 17.6 % (13-45); MEAN CORPUSCULAR HEMOGLOBIN 31.4 pg (27.0-33.4); MEAN CORPUSCULAR HGB CONC 33.6 g/dL (32.0-36.0); MEAN CORPUSCULAR VOLUME 93 fl (80-97); MONOCYTES % (AUTO) 8.7 % (3-13); PLATELET COUNT 106 10^3/uL (150-450); RED BLOOD COUNT 2.86 10^6/uL (3.72-5.28); RED CELL DISTRIBUTION WIDTH 17.3 % (11.5-14.0); SEGMENTED NEUTROPHILS % (AUTO) 71.8 % (42-78); TOTAL CELLS COUNTED % (AUTO) 100 %; WHITE BLOOD COUNT 8.3 10^3/uL (4.0-10.5)
--- NOTE | 2018-10-20 10:46 | PDOC PROGRESS REPORT ---
Subjective Progress Note for:: 10/20/18 Reason For Visit: C25.9 MALIGNANT NEOPLASM OF PANCREAS, UNSPECIFIED Physical Exam Vital Signs: Temp Pulse Resp BP Pulse Ox 98.5 F 78 18 106/61 95 10/20/18 08:53 10/20/18 08:53 10/20/18 08:53 10/20/18 08:53 10/20/18 08:53 Intake & Output 10/19/18 10/20/18 10/21/18 06:59 06:59 06:59 Intake Total 2501 991 Output Total 920 30 Balance 1581 961 Weight 77.2 kg 76.4 kg General appearance: PRESENT: no acute distress Eye exam: PRESENT: EOMI Mouth exam: PRESENT: moist Neck exam: PRESENT: full ROM Respiratory exam: PRESENT: clear to auscultation valarie Cardiovascular exam: PRESENT: RRR Pulses: PRESENT: normal radial pulses, normal femoral pulses GI/Abdominal exam: PRESENT: soft Rectal exam: PRESENT: deferred Extremities exam: PRESENT: full ROM Musculoskeletal exam: PRESENT: ambulatory, full ROM Neurological exam: PRESENT: alert, awake, oriented to person, oriented to place, oriented to time, oriented to situation Psychiatric exam: PRESENT: appropriate affect Results Laboratory Results: 10/20/18 09:40 10/19/18 10/20/18 14:57 09:40 WBC 8.3 RBC 2.86 L Hgb 9.0 L Hct 26.7 L MCV 93 MCH 31.4 MCHC 33.6 RDW 17.3 H Plt Count 106 L Seg Neutrophils % 71.8 Lymphocytes % 17.6 Monocytes % 8.7 Eosinophils % 1.6 Basophils % 0.3 Absolute Neutrophils 5.9 Absolute Lymphocytes 1.5 Absolute Monocytes 0.7 Absolute Eosinophils 0.1 Absolute Basophils 0.0 Magnesium 2.6 H D Impressions: KUB X-Ray 10/11/18 17:02 IMPRESSION: NASOGASTRIC TUBE IN THE STOMACH. SURGICAL HARDWARE IN THE UPPER ABDOMEN WELL. Chest X-Ray 10/14/18 06:00 IMPRESSION: Improved aeration left lung. Lumbar Spine X-Ray 10/19/18 00:00 IMPRESSION: 1. ANTERIOR WEDGE DEFORMITY OF THE T12 VERTEBRAL BODY, AGE INDETERMINATE. PROBABLY OLD. IF THERE IS STRONG CLINICAL CONCERN, MAY CONSIDER CT OF THE LUMBAR SPINE TO INCLUDE THE LOWER THORACIC VERTEBRAE. 2. MULTILEVEL CHRONIC DEGENERATIVE CHANGES. Pelvis X-Ray 10/19/18 00:00 IMPRESSION: NEGATIVE STUDY OF THE PELVIS. Assessment & Plan - Diagnosis (1) Pancreatic adenocarcinoma Is this a current diagnosis for this admission?: Yes - Plan Summary Plan Summary: s/p whipple doing well had bm today wants to increae diet will start full liquids poss home on monday.
[2018-10-20 10:52] LABS: ALANINE AMINOTRANSFERASE 24 U/L (9-52); ALBUMIN 1.8 g/dL (3.5-5.0); ALKALINE PHOSPHATASE 109 U/L (38-126); ASPARTATE AMINO TRANSFERASE 15 U/L (14-36); BILIRUBIN,DIRECT 0.3 mg/dL (0.0-0.4); BILIRUBIN,TOTAL 0.5 mg/dL (0.2-1.3); BLOOD UREA NITROGEN 12 mg/dL (7-20); CALCIUM 7.7 mg/dL (8.4-10.2); GLUCOSE 159 mg/dL (75-110); POTASSIUM 4.3 mmol/L (3.6-5.0); TOTAL PROTEIN 3.8 g/dL (6.3-8.2)
[2018-10-20 10:57] LABS: CARBON DIOXIDE 28 mmol/L (22-30); CHLORIDE 106 mmol/L (98-107); SODIUM 135.6 mmol/L (137-145)
[2018-10-20 10:59] LABS: ANION GAP 2 (5-19)
[2018-10-20] MEDS: NORMAL SALINE 1000 ML 1,000 ML IV PRN (12:17)
[2018-10-20] MEDS: FUROSEMIDE INJ/PF 20 MG/2 ML SDV IV SCH ×2 (12:51→21:02)
[2018-10-20] MEDS: LISINOPRIL 5 MG TABLET PO SCH (12:52)
--- NOTE | 2018-10-20 14:37 | PDOC PROGRESS REPORT ---
Subjective Progress Note for:: 10/20/18 Subjective:: This is a 68 yr old female with a PMH of pancreatic cancer, mitral valve disorder, hypertension, diabetes mellitus who was admitted under surgery for Whipple's procedure on 10/11/2018 which was successful. Hospitalist service was consulted for medical co-management. 10/16: She continues to do well. Diet has been advanced to clear liquids. She is passing out gas but has not had a BM yet. Sugars are at goal in the 160-170s. 10/17: She continues to feel better. No abdominal pain upon encounter. Sugars running on the low end in the 70-80s. Blood pressures are also well controlled. Encouraged to increase oral intake. Tube feeding also increased by surgery. 10/18: She continues to do better. She is tolerating clear diet well. She has not had a BM yet but is passing out gas. 10/19: She continues to tolerate clears well. She is passing out gas but has not had a BM yet. Surgery has added dulcolax. Called by RN that patient fell on her buttocks while trying to use the commode. 10/20: No acute issues overnight. Denies acute complaint or abdominal pain. She had a large nonbloody, nonwatery BM this morning. She continues to tolerate clear diet well. Reason For Visit: C25.9 MALIGNANT NEOPLASM OF PANCREAS, UNSPECIFIED Physical Exam Vital Signs: Temp Pulse Resp BP Pulse Ox 98.5 F 77 18 106/66 95 10/20/18 11:35 10/20/18 11:35 10/20/18 11:35 10/20/18 11:35 10/20/18 11:35 Intake & Output 10/19/18 10/20/18 10/21/18 06:59 06:59 06:59 Intake Total 2501 991 1000 Output Total 920 30 Balance 0315 058 5134 Weight 170 lb 3.15 oz 168 lb 6.931 oz General appearance: PRESENT: no acute distress, well-developed, well-nourished Head exam: PRESENT: atraumatic, normocephalic Eye exam: PRESENT: conjunctiva pink, EOMI, PERRLA. ABSENT: scleral icterus Ear exam: PRESENT: normal external ear exam Mouth exam: PRESENT: moist, tongue midline Neck exam: ABSENT: carotid bruit, JVD, lymphadenopathy, thyromegaly Respiratory exam: PRESENT: clear to auscultation valarie. ABSENT: rales, rhonchi, wheezes Cardiovascular exam: PRESENT: RRR. ABSENT: diastolic murmur, rubs, systolic murmur Pulses: PRESENT: normal dorsalis pedis pul GI/Abdominal exam: PRESENT: normal bowel sounds, soft. ABSENT: distended, guarding, mass, organolmegaly, rebound, tenderness Rectal exam: PRESENT: deferred Neurological exam: PRESENT: alert, awake, oriented to person, oriented to place, oriented to time, oriented to situation, CN II-XII grossly intact. ABSENT: mo tor sensory deficit Results Laboratory Results: 10/20/18 09:40 10/20/18 09:40 10/19/18 10/20/18 10/20/18 14:57 09:40 09:40 WBC 8.3 RBC 2.86 L Hgb 9.0 L Hct 26.7 L MCV 93 MCH 31.4 MCHC 33.6 RDW 17.3 H Plt Count 106 L Seg Neutrophils % 71.8 Lymphocytes % 17.6 Monocytes % 8.7 Eosinophils % 1.6 Basophils % 0.3 Absolute Neutrophils 5.9 Absolute Lymphocytes 1.5 Absolute Monocytes 0.7 Absolute Eosinophils 0.1 Absolute Basophils 0.0 Sodium 135.6 L Potassium 4.3 Chloride 106 Carbon Dioxide 28 Anion Gap 2 L BUN 12 Creatinine 0.38 L Est GFR ( Amer) > 60 Est GFR (Non-Af Amer) > 60 Glucose 159 H Calcium 7.7 L Magnesium 2.6 H D Total Bilirubin 0.5 AST 15 ALT 24 Alkaline Phosphatase 109 Total Protein 3.8 L Albumin 1.8 L Impressions: KUB X-Ray 10/11/18 17:02 IMPRESSION: NASOGASTRIC TUBE IN THE STOMACH. SURGICAL HARDWARE IN THE UPPER ABDOMEN WELL. Chest X-Ray 10/14/18 06:00 IMPRESSION: Improved aeration left lung. Lumbar Spine X-Ray 10/19/18 00:00 IMPRESSION: 1. ANTERIOR WEDGE DEFORMITY OF THE T12 VERTEBRAL BODY, AGE INDETERMINATE. PROBABLY OLD. IF THERE IS STRONG CLINICAL CONCERN, MAY CONSIDER CT OF THE LUMBAR SPINE TO INCLUDE THE LOWER THORACIC VERTEBRAE. 2. MULTILEVEL CHRONIC DEGENERATIVE CHANGES. Pelvis X-Ray 10/19/18 00:00 IMPRESSION: NEGATIVE STUDY OF THE PELVIS. Assessment and Plan - Diagnosis (1) Pancreatic adenocarcinoma Is this a current diagnosis for this admission?: Yes Plan: S/ P Whipple's procedure on 10/11/18. Primary service following. (2) HTN (hypertension) Is this a current diagnosis for this admission?: Yes Plan: Blood pressures are well controlled. Continue lisinopril. (3) Diabetes mellitus Is this a current diagnosis for this admission?: Yes Plan: Sugars are at goal in the 160-170s. Continue sliding scale. 10/17: Sugars running on the low end in the 70-80s. Encouraged to increase oral intake. Tube feeding also increased by surgery. 10/18: Sugars have improved with increase in oral intake. 10/19: Sugars at goal. (4) Hypomagnesemia Is this a current diagnosis for this admission?: Yes Plan: 10/18: Mg this morning is 1.3. Replace Mg. Will start on scheduled oral Mg. 10/19: MG is low again at 1.2. Replace with 4 gms IV. Will increase schedule PO Mg. 10/20: Repeat Mg elevated at 2.6. Hold oral Mg for now. (5) Hypokalemia Is this a current diagnosis for this admission?: Yes Plan: Repeat potassium is 3.5. Will continue to monitor electrolytes. 10/17: Resolved. - Time Time Spent with patient: 15-24 minutes
[2018-10-20] MEDS: KETOROLAC TROMETHAMINE 10 MG TABLET PO PRN ×2 (14:50→21:12)
[2018-10-20] MEDS: PRAMIPEXOLE DI-HCL 0.5 MG TABLET JT SCH (17:38)
[2018-10-20] MEDS: MONTELUKAST SODIUM 10 MG TABLET JT SCH (21:05)
[2018-10-21] MEDS: INSULIN REG, HUMAN 100 UNIT/ML 3 ML VIAL (PYX) SUBCUT SCH ×3 (01:11→12:16)
[2018-10-21] MEDS: METOPROLOL TARTRATE PF/INJ 5 MG/5 ML SDV IV SCH ×4 (03:21→21:15)
[2018-10-21 05:01] LABS: ABSOLUTE EOSINOPHILS # (AUTO) 0.1 10^3/uL (0.0-0.6); ABSOLUTE LYMPHOCYTES (AUTO) 1.7 10^3/uL (0.5-4.7); ABSOLUTE MONOCYTES (AUTO) 0.6 10^3/uL (0.1-1.4); BASOPHILS % (AUTO) 0.4 % (0-2); EOSINOPHILS % (AUTO) 1.4 % (0-6); HEMATOCRIT 24.1 % (36.0-47.0); HEMOGLOBIN 8.1 g/dL (12.0-15.5); LYMPHOCYTES % (AUTO) 23.3 % (13-45); MEAN CORPUSCULAR HEMOGLOBIN 31.7 pg (27.0-33.4); MEAN CORPUSCULAR HGB CONC 33.6 g/dL (32.0-36.0); MEAN CORPUSCULAR VOLUME 94 fl (80-97); MONOCYTES % (AUTO) 7.5 % (3-13); PLATELET COUNT 106 10^3/uL (150-450); RED BLOOD COUNT 2.55 10^6/uL (3.72-5.28); RED CELL DISTRIBUTION WIDTH 17.5 % (11.5-14.0); SEGMENTED NEUTROPHILS % (AUTO) 67.4 % (42-78); TOTAL CELLS COUNTED % (AUTO) 100 %; WHITE BLOOD COUNT 7.4 10^3/uL (4.0-10.5)
[2018-10-21 05:12] LABS: ALANINE AMINOTRANSFERASE 22 U/L (9-52); ALBUMIN 1.8 g/dL (3.5-5.0); ALKALINE PHOSPHATASE 110 U/L (38-126); ASPARTATE AMINO TRANSFERASE 17 U/L (14-36); BILIRUBIN,DIRECT 0.3 mg/dL (0.0-0.4); BILIRUBIN,TOTAL 0.4 mg/dL (0.2-1.3); BLOOD UREA NITROGEN 12 mg/dL (7-20); CALCIUM 7.5 mg/dL (8.4-10.2); GLUCOSE 111 mg/dL (75-110); TOTAL PROTEIN 3.9 g/dL (6.3-8.2)
[2018-10-21 05:18] LABS: CARBON DIOXIDE 30 mmol/L (22-30); CHLORIDE 106 mmol/L (98-107); SODIUM 136.5 mmol/L (137-145)
[2018-10-21 05:31] LABS: ANION GAP 1 (5-19)
[2018-10-21] MEDS: HEPARIN SOD (PORCINE) 5,000 UNIT/ML 1 ML SYRINGE SUBCUT SCH ×3 (06:49→22:00)
[2018-10-21] MEDS ORDERED: DEXTROSE 50%-WATER 25 GM/50 ML DISP.SYRIN IV ONE (07:15)
--- NOTE | 2018-10-21 08:15 | PDOC PROGRESS REPORT ---
Subjective Progress Note for:: 10/21/18 Subjective:: feels ok tolerated full liquids c/o some drainage from midline wound Reason For Visit: C25.9 MALIGNANT NEOPLASM OF PANCREAS, UNSPECIFIED Physical Exam Vital Signs: Temp Pulse Resp BP Pulse Ox 98.3 F 87 15 118/61 100 10/20/18 23:40 10/20/18 23:40 10/20/18 23:40 10/20/18 23:40 10/20/18 23:40 Intake & Output 10/20/18 10/21/18 10/22/18 06:59 06:59 06:59 Intake Total 991 2080 Output Total 30 Balance 961 2080 Weight 76.4 kg 77.3 kg General appearance: PRESENT: no acute distress Head exam: PRESENT: normocephalic Eye exam: PRESENT: EOMI Mouth exam: PRESENT: moist Neck exam: PRESENT: full ROM Respiratory exam: PRESENT: clear to auscultation valarie Cardiovascular exam: PRESENT: RRR Pulses: PRESENT: normal radial pulses, normal femoral pulses Vascular exam: PRESENT: normal capillary refill GI/Abdominal exam: PRESENT: other - abd soft midline wound with drainage from middle of staple line 2 robin removed and sl opened with drainage of 20cc creamy pus packed with nugauze Rectal exam: PRESENT: deferred Musculoskeletal exam: PRESENT: full ROM Neurological exam: PRESENT: alert, awake, oriented to person, oriented to place, oriented to time, oriented to situation Skin exam: PRESENT: dry Results Laboratory Results: 10/21/18 04:30 10/21/18 04:30 10/20/18 10/20/18 10/21/18 09:40 09:40 04:30 WBC 8.3 7.4 RBC 2.86 L 2.55 L Hgb 9.0 L 8.1 L Hct 26.7 L 24.1 L MCV 93 94 MCH 31.4 31.7 MCHC 33.6 33.6 RDW 17.3 H 17.5 H Plt Count 106 L 106 L Seg Neutrophils % 71.8 67.4 Lymphocytes % 17.6 23.3 Monocytes % 8.7 7.5 Eosinophils % 1.6 1.4 Basophils % 0.3 0.4 Absolute Neutrophils 5.9 5.0 Absolute Lymphocytes 1.5 1.7 Absolute Monocytes 0.7 0.6 Absolute Eosinophils 0.1 0.1 Absolute Basophils 0.0 0.0 Sodium 135.6 L Potassium 4.3 Chloride 106 Carbon Dioxide 28 Anion Gap 2 L BUN 12 Creatinine 0.38 L Est GFR ( Amer) > 60 Est GFR (Non-Af Amer) > 60 Glucose 159 H Calcium 7.7 L Total Bilirubin 0.5 AST 15 ALT 24 Alkaline Phosphatase 109 Total Protein 3.8 L Albumin 1.8 L 10/21/18 04:30 WBC RBC Hgb Hct MCV MCH MCHC RDW Plt Count Seg Neutrophils % Lymphocytes % Monocytes % Eosinophils % Basophils % Absolute Neutrophils Absolute Lymphocytes Absolute Monocytes Absolute Eosinophils Absolute Basophils Sodium 136.5 L Potassium 4.0 Chloride 106 Carbon Dioxide 30 Anion Gap 1 L BUN 12 Creatinine 0.40 L Est GFR ( Amer) > 60 Est GFR (Non-Af Amer) > 60 Glucose 111 H Calcium 7.5 L Total Bilirubin 0.4 AST 17 ALT 22 Alkaline Phosphatase 110 Total Protein 3.9 L Albumin 1.8 L Impressions: KUB X-Ray 10/11/18 17:02 IMPRESSION: NASOGASTRIC TUBE IN THE STOMACH. SURGICAL HARDWARE IN THE UPPER ABDOMEN WELL. Chest X-Ray 10/14/18 06:00 IMPRESSION: Improved aeration left lung. Lumbar Spine X-Ray 10/19/18 00:00 IMPRESSION: 1. ANTERIOR WEDGE DEFORMITY OF THE T12 VERTEBRAL BODY, AGE INDETERMINATE. PROBABLY OLD. IF THERE IS STRONG CLINICAL CONCERN, MAY CONSIDER CT OF THE LUMBAR SPINE TO INCLUDE THE LOWER THORACIC VERTEBRAE. 2. MULTILEVEL CHRONIC DEGENERATIVE CHANGES. Pelvis X-Ray 10/19/18 00:00 IMPRESSION: NEGATIVE STUDY OF THE PELVIS. Assessment & Plan - Diagnosis (1) Pancreatic adenocarcinoma Is this a current diagnosis for this admission?: Yes - Plan Summary Plan Summary: doing very well now dwight ful liquids iwth bm's would with small seropurulent drainage opened and packed wbc remains wnl will advnce diet today will plan on dc home tomorrow on insulin sliding scale and reg diet. will dc jaycee prior to discharge.
[2018-10-21] MEDS: MAGNESIUM OXIDE 400 MG TABLET PO SCH ×2 (09:25→17:24)
[2018-10-21] MEDS: POTASSIUM CHLORIDE 10 MEQ CAPSULE.ER PO SCH (09:25)
[2018-10-21] MEDS: ASPIRIN 81 MG TABLET, CHEWABLE JT SCH (09:25)
[2018-10-21] MEDS: FAMOTIDINE INJ/PF 20 MG/2 ML SDV IV SCH ×2 (09:25→22:02)
[2018-10-21] MEDS: LISINOPRIL 5 MG TABLET PO SCH (09:25)
[2018-10-21] MEDS: SERTRALINE HCL 50 MG TABLET JT SCH (09:26)
[2018-10-21] MEDS: KETOROLAC TROMETHAMINE 10 MG TABLET PO PRN ×2 (09:29→17:24)
[2018-10-21] MEDS: CLOBETASOL PROPIONATE 0.05% OINTMENT 15 GM TP SCH ×2 (09:32→22:01)
[2018-10-21] MEDS: FUROSEMIDE INJ/PF 20 MG/2 ML SDV IV SCH ×2 (12:47→22:01)
--- NOTE | 2018-10-21 14:35 | PDOC PROGRESS REPORT ---
Subjective Progress Note for:: 10/21/18 Subjective:: This is a 68 yr old female with a PMH of pancreatic cancer, mitral valve disorder, hypertension, diabetes mellitus who was admitted under surgery for Whipple's procedure on 10/11/2018 which was successful. Hospitalist service was consulted for medical co-management. 10/16: She continues to do well. Diet has been advanced to clear liquids. She is passing out gas but has not had a BM yet. Sugars are at goal in the 160-170s. 10/17: She continues to feel better. No abdominal pain upon encounter. Sugars running on the low end in the 70-80s. Blood pressures are also well controlled. Encouraged to increase oral intake. Tube feeding also increased by surgery. 10/18: She continues to do better. She is tolerating clear diet well. She has not had a BM yet but is passing out gas. 10/19: She continues to tolerate clears well. She is passing out gas but has not had a BM yet. Surgery has added dulcolax. Called by RN that patient fell on her buttocks while trying to use the commode. 10/20: Denies acute complaint or abdominal pain. She had a large nonbloody, nonwatery BM this morning. She continues to tolerate clear diet well. 10/21: She had a hypoglycemic episode of 47 overnight. Otherwise, she continues to do well and is tolerating diet well. Diet is being advanced further by surgery. Potassium and Magnesium have remained normal. Denies any acute complaint. Blood pressures are well controlled. Recommend holding off on Janumet on discharge. This could be resumed by PCP later depending on her subsequent blood sugars at home. Reason For Visit: C25.9 MALIGNANT NEOPLASM OF PANCREAS, UNSPECIFIED Physical Exam Vital Signs: Temp Pulse Resp BP Pulse Ox 98.4 F 75 16 110/67 99 10/21/18 12:00 10/21/18 12:00 10/21/18 12:00 10/21/18 12:00 10/21/18 12:00 Intake & Output 10/20/18 10/21/18 10/22/18 06:59 06:59 06:59 Intake Total 991 2080 Output Total 30 Balance 961 2080 Weight 168 lb 6.931 oz 170 lb 6.677 oz General appearance: PRESENT: no acute distress, well-developed, well-nourished Head exam: PRESENT: atraumatic, normocephalic Eye exam: PRESENT: conjunctiva pink, EOMI, PERRLA. ABSENT: scleral icterus Ear exam: PRESENT: normal external ear exam Mouth exam: PRESENT: moist, tongue midline Neck exam: ABSENT: carotid bruit, JVD, lymphadenopathy, thyromegaly Respiratory exam: PRESENT: clear to auscultation valarie. ABSENT: rales, rhonchi, wheezes Cardiovascular exam: PRESENT: RRR. ABSENT: diastolic murmur, rubs, systolic murmur Pulses: PRESENT: normal dorsalis pedis pul GI/Abdominal exam: PRESENT: normal bowel sounds, soft. ABSENT: distended, guarding, mass, organolmegaly, rebound, tenderness Rectal exam: PRESENT: deferred Neurological exam: PRESENT: alert, awake, oriented to person, oriented to place, oriented to time, oriented to situation, CN II-XII grossly intact. ABSENT: motor sensory deficit Results Laboratory Results: 10/21/18 04:30 10/21/18 04:30 10/21/18 10/21/18 10/21/18 04:30 04:30 04:30 WBC 7.4 RBC 2.55 L Hgb 8.1 L Hct 24.1 L MCV 94 MCH 31.7 MCHC 33.6 RDW 17.5 H Plt Count 106 L Seg Neutrophils % 67.4 Lymphocytes % 23.3 Monocytes % 7.5 Eosinophils % 1.4 Basophils % 0.4 Absolute Neutrophils 5.0 Absolute Lymphocytes 1.7 Absolute Monocytes 0.6 Absolute Eosinophils 0.1 Absolute Basophils 0.0 Sodium 136.5 L Cancelled Potassium 4.0 Cancelled Chloride 106 Cancelled Carbon Dioxide 30 Cancelled Anion Gap 1 L Cancelled BUN 12 Cancelled Creatinine 0.40 L Cancelled Est GFR ( Amer) > 60 Cancelled Est GFR (Non-Af Amer) > 60 Cancelled Glucose 111 H Cancelled Calcium 7.5 L Cancelled Magnesium 1.6 Total Bilirubin 0.4 AST 17 ALT 22 Alkaline Phosphatase 110 Total Protein 3.9 L Albumin 1.8 L Impressions: KUB X-Ray 10/11/18 17:02 IMPRESSION: NASOGASTRIC TUBE IN THE STOMACH. SURGICAL HARDWARE IN THE UPPER ABDOMEN WELL. Chest X-Ray 10/14/18 06:00 IMPRESSION: Improved aeration left lung. Lumbar Spine X-Ray 10/19/18 00:00 IMPRESSION: 1. ANTERIOR WEDGE DEFORMITY OF THE T12 VERTEBRAL BODY, AGE INDETERMINATE. PROBABLY OLD. IF THERE IS STRONG CLINICAL CONCERN, MAY CONSIDER CT OF THE LUMBAR SPINE TO INCLUDE THE LOWER THORACIC VERTEBRAE. 2. MULTILEVEL CHRONIC DEGENERATIVE CHANGES. Pelvis X-Ray 10/19/18 00:00 IMPRESSION: NEGATIVE STUDY OF THE PELVIS. Assessment and Plan - Diagnosis (1) Pancreatic adenocarcinoma Is this a current diagnosis for this admission?: Yes Plan: S/ P Whipple's procedure on 10/11/18. Primary service following. (2) HTN (hypertension) Is this a current diagnosis for this admission?: Yes Plan: Blood pressures are well controlled. Continue lisinopril. (3) Diabetes mellitus Is this a current diagnosis for this admission?: Yes Plan: Sugars are at goal in the 160-170s. Continue sliding scale. 10/17: Sugars running on the low end in the 70-80s. Encouraged to increase oral intake. Tube feeding also increased by surgery. 10/18: Sugars have improved with increase in oral intake. 10/19: Sugars at goal. 10/21: She had a hypoglycemic episode of 47 overnight. Otherwise, she continues to do well and is tolerating diet well. Diet is being advanced further by surgery. Recommend holding off on Janumet on discharge. Discontinue sliding scale. (4) Hypomagnesemia Is this a current diagnosis for this admission?: Yes Plan: 10/18: Mg this morning is 1.3. Replace Mg. Will start on scheduled oral Mg. 10/19: MG is low again at 1.2. Replace with 4 gms IV. Will increase schedule PO Mg. 10/20: Repeat Mg elevated at 2.6. Hold oral Mg for now. 10/21: Resolved. (5) Hypokalemia Is this a current diagnosis for this admission?: Yes Plan: Repeat potassium is 3.5. Will continue to monitor electrolytes. 10/17: Resolved. - Time Time Spent with patient: 15-24 minutes
[2018-10-21] MEDS: PRAMIPEXOLE DI-HCL 0.5 MG TABLET JT SCH (17:24)
[2018-10-21] MEDS: MONTELUKAST SODIUM 10 MG TABLET JT SCH (22:02)
[2018-10-22] MEDS: METOPROLOL TARTRATE PF/INJ 5 MG/5 ML SDV IV SCH ×2 (05:19→09:35)
[2018-10-22] MEDS: HEPARIN SOD (PORCINE) 5,000 UNIT/ML 1 ML SYRINGE SUBCUT SCH (05:20)
[2018-10-22 06:15] LABS: ABSOLUTE EOSINOPHILS # (AUTO) 0.1 10^3/uL (0.0-0.6); ABSOLUTE LYMPHOCYTES (AUTO) 1.2 10^3/uL (0.5-4.7); ABSOLUTE MONOCYTES (AUTO) 0.7 10^3/uL (0.1-1.4); ABSOLUTE NEUT (AUTO) 5.2 10^3/uL (1.7-8.2); BASOPHILS % (AUTO) 0.4 % (0-2); EOSINOPHILS % (AUTO) 1.4 % (0-6); HEMATOCRIT 26.9 % (36.0-47.0); HEMOGLOBIN 8.9 g/dL (12.0-15.5); LYMPHOCYTES % (AUTO) 16.7 % (13-45); MEAN CORPUSCULAR HEMOGLOBIN 31.1 pg (27.0-33.4); MEAN CORPUSCULAR HGB CONC 33.2 g/dL (32.0-36.0); MEAN CORPUSCULAR VOLUME 94 fl (80-97); MONOCYTES % (AUTO) 9.5 % (3-13); PLATELET COUNT 122 10^3/uL (150-450); RED BLOOD COUNT 2.87 10^6/uL (3.72-5.28); RED CELL DISTRIBUTION WIDTH 17.2 % (11.5-14.0); TOTAL CELLS COUNTED % (AUTO) 100 %; WHITE BLOOD COUNT 7.2 10^3/uL (4.0-10.5)
[2018-10-22 06:36] LABS: ALANINE AMINOTRANSFERASE 19 U/L (9-52); ALKALINE PHOSPHATASE 133 U/L (38-126); ANION GAP 6 (5-19); ASPARTATE AMINO TRANSFERASE 21 U/L (14-36); BILIRUBIN,DIRECT 0.3 mg/dL (0.0-0.4); BILIRUBIN,TOTAL 0.5 mg/dL (0.2-1.3); BLOOD UREA NITROGEN 10 mg/dL (7-20); CALCIUM 7.8 mg/dL (8.4-10.2); CARBON DIOXIDE 25 mmol/L (22-30); CHLORIDE 105 mmol/L (98-107); GLUCOSE 246 mg/dL (75-110); POTASSIUM 4.7 mmol/L (3.6-5.0); SODIUM 135.5 mmol/L (137-145); TOTAL PROTEIN 4.3 g/dL (6.3-8.2)
--- NOTE | 2018-10-22 07:44 | PDOC PROGRESS REPORT ---
Subjective Progress Note for:: 10/22/18 Subjective:: feels well today dwight reg diet wbc wnl h/h stable ready for dc home Reason For Visit: C25.9 MALIGNANT NEOPLASM OF PANCREAS, UNSPECIFIED Physical Exam Vital Signs: Temp Pulse Resp BP Pulse Ox 98.2 F 87 17 137/79 H 100 10/22/18 00:00 10/22/18 00:00 10/22/18 00:00 10/22/18 00:00 10/22/18 00:00 Intake & Output 10/21/18 10/22/18 10/23/18 06:59 06:59 06:59 Intake Total 2079 1022 Output Total 90 Balance 2079 932 Weight 77.3 kg 76.2 kg General appearance: PRESENT: no acute distress Head exam: PRESENT: normocephalic Eye exam: PRESENT: EOMI Neck exam: PRESENT: full ROM Respiratory exam: PRESENT: clear to auscultation valarie Cardiovascular exam: PRESENT: RRR Pulses: PRESENT: normal radial pulses, normal femoral pulses Vascular exam: PRESENT: normal capillary refill GI/Abdominal exam: PRESENT: soft - midline small open wound clean, min drainage Extremities exam: PRESENT: full ROM Musculoskeletal exam: PRESENT: full ROM Neurological exam: PRESENT: alert, awake, oriented to person, oriented to place, oriented to time, oriented to situation Psychiatric exam: PRESENT: appropriate affect Skin exam: PRESENT: dry Results Laboratory Results: 10/22/18 05:35 10/22/18 05:35 10/21/18 10/22/18 10/22/18 04:30 05:35 05:35 WBC 7.2 RBC 2.87 L Hgb 8.9 L Hct 26.9 L MCV 94 MCH 31.1 MCHC 33.2 RDW 17.2 H Plt Count 122 L Seg Neutrophils % 72.0 Lymphocytes % 16.7 Monocytes % 9.5 Eosinophils % 1.4 Basophils % 0.4 Absolute Neutrophils 5.2 Absolute Lymphocytes 1.2 Absolute Monocytes 0.7 Absolute Eosinophils 0.1 Absolute Basophils 0.0 Sodium Cancelled 135.5 L Potassium Cancelled 4.7 Chloride Cancelled 105 Carbon Dioxide Cancelled 25 Anion Gap Cancelled 6 BUN Cancelled 10 Creatinine Cancelled 0.42 L Est GFR ( Amer) Cancelled > 60 Est GFR (Non-Af Amer) Cancelled > 60 Glucose Cancelled 246 H Calcium Cancelled 7.8 L Magnesium 1.6 Total Bilirubin 0.5 AST 21 ALT 19 Alkaline Phosphatase 133 H Total Protein 4.3 L Albumin 2.0 L Impressions: KUB X-Ray 10/11/18 17:02 IMPRESSION: NASOGASTRIC TUBE IN THE STOMACH. SURGICAL HARDWARE IN THE UPPER ABDOMEN WELL. Chest X-Ray 10/14/18 06:00 IMPRESSION: Improved aeration left lung. Lumbar Spine X-Ray 10/19/18 00:00 IMPRESSION: 1. ANTERIOR WEDGE DEFORMITY OF THE T12 VERTEBRAL BODY, AGE INDETERMINATE. PROBABLY OLD. IF THERE IS STRONG CLINICAL CONCERN, MAY CONSIDER CT OF THE LUMBAR SPINE TO INCLUDE THE LOWER THORACIC VERTEBRAE. 2. MULTILEVEL CHRONIC DEGENERATIVE CHANGES. Pelvis X-Ray 10/19/18 00:00 IMPRESSION: NEGATIVE STUDY OF THE PELVIS. Assessment & Plan - Diagnosis (1) Pancreatic adenocarcinoma Is this a current diagnosis for this admission?: Yes - Plan Summary Plan Summary: pt now 11 days post whipple doing well dwight reg diet wbc wnl pt ready for dc home today will f/u me in 1 wk.
[2018-10-22] MEDS: SERTRALINE HCL 50 MG TABLET JT SCH (09:24)
[2018-10-22] MEDS: LISINOPRIL 5 MG TABLET PO SCH (09:24)
[2018-10-22] MEDS: ASPIRIN 81 MG TABLET, CHEWABLE JT SCH (09:24)
[2018-10-22] MEDS: POTASSIUM CHLORIDE 10 MEQ CAPSULE.ER PO SCH (09:24)
[2018-10-22] MEDS: MAGNESIUM OXIDE 400 MG TABLET PO SCH (09:24)
[2018-10-22] MEDS: KETOROLAC TROMETHAMINE 10 MG TABLET PO PRN (09:33)
[2018-10-22] MEDS: CLOBETASOL PROPIONATE 0.05% OINTMENT 15 GM TP SCH (09:35)
[2018-10-22] MEDS: FUROSEMIDE INJ/PF 20 MG/2 ML SDV IV SCH (09:35)
[2018-10-22] MEDS: FAMOTIDINE INJ/PF 20 MG/2 ML SDV IV SCH (09:35)
[2018-10-22 09:53] VITALS: BP 110/67
--- NOTE | 2018-10-22 14:50 | DISCHARGE SUMMARY E ---
Discharge Summary NAME: NARGIS MELENDREZ : 1950 AGE: 68Y ADMITTED: 10/11/2018 DISCHARGED: 10/22/2018 ADMISSION DIAGNOSIS: Pancreatic cancer. DISCHARGE DIAGNOSIS: Pancreatic cancer. OPERATION: Pancreatoduodenectomy. SURGEON: Stevan Lopez M.D. REASON FOR HOSPITALIZATION/HOSPITAL COURSE: This is a 68-year-old female who was diagnosed with pancreatic cancer. She underwent neoadjuvant chemotherapy prior to this planned procedure. She was admitted on the day of surgery and underwent a pancreatoduodenectomy. Postoperatively she had a routine benign postop course. She was monitored in the intensive care unit for 1 day after surgery because she remained intubated. She was then extubated. Remained in the ICU for monitoring for the next 48 hours, at which time she was then transferred to the regular nursing floor. She continued to improve and progress throughout her hospital course. Initially with the NG tube in place, it was subsequently then removed. As she slowly regained her bowel function she was started on a progressive diet, which was slowly advanced to a regular diet by the time of discharge. She had minimal complications during her postoperative period and progressed normally throughout the hospital course. On the day of discharge she was afebrile with stable vital signs. She was tolerating a regular diet, having normal bowel function. The previously placed Miller-Carlton drain that was placed in surgery has been removed as well as her central line. She has a feeding tube that will remain in place and not be used at home. She will follow up with me in a week and I will remove the tube as we confirm adequate p.o. intake. Because of the pancreatoduodenectomy she is requiring insulin and will be discharged home on sliding scale regular insulin dose and she has a glucose monitor at home which she will utilize three times a day and give herself insulin doses per sliding scale as was taught to her prior to discharge. DISCHARGE MEDICATIONS: 1. Insulin regular. 2. Tramadol 50 mg tablets 1 p.o. q.6 p.r.n. pain. FOLLOW UP: She will follow up with me in a week after discharge and then we will make arrangements for her to follow up with oncology for postoperative chemotherapy. DISABILITY: Expected to be 6 weeks. FINAL DIAGNOSIS: Pancreatic cancer. DICTATING PHYSICIAN: STEVAN LOPEZ M.D. [id number] PHY#: [id number] ID: [id number] JOB#: [id number] ACCT: [id number] cc:STEVAN LOPEZ M.D. >
--- NOTE | 2018-10-22 17:06 | PDOC PROGRESS REPORT ---
Subjective Progress Note for:: 10/22/18 Subjective:: This is a 68 yr old female with a PMH of pancreatic cancer, mitral valve disorder, hypertension, diabetes mellitus who was admitted under surgery for Whipple's procedure on 10/11/2018 which was successful. Hospitalist service was consulted for medical co-management. 10/16: She continues to do well. Diet has been advanced to clear liquids. She is passing out gas but has not had a BM yet. Sugars are at goal in the 160-170s. 10/17: She continues to feel better. No abdominal pain upon encounter. Sugars running on the low end in the 70-80s. Blood pressures are also well controlled. Encouraged to increase oral intake. Tube feeding also increased by surgery. 10/18: She continues to do better. She is tolerating clear diet well. She has not had a BM yet but is passing out gas. 10/19: She continues to tolerate clears well. She is passing out gas but has not had a BM yet. Surgery has added dulcolax. Called by RN that patient fell on her buttocks while trying to use the commode. 10/20: Denies acute complaint or abdominal pain. She had a large nonbloody, nonwatery BM this morning. She continues to tolerate clear diet well. 10/21: She had a hypoglycemic episode of 47 overnight. Otherwise, she continues to do well and is tolerating diet well. Diet is being advanced further by surgery. Potassium and Magnesium have remained normal. Denies any acute complaint. Blood pressures are well controlled. Recommend holding off on Janumet on discharge if she continues to have lepisodes of hypoglycemia. This could be resumed by PCP later depending on her subsequent blood sugars at home. 10/22: No acute issue. Patient is being discharged by surgery. Appear she is also being discharged on high dose sliding scale. Recommend holding off on Janumet and discharging patient on lower dose of metofmrin only and revising insulin sliding scale to a revised low dose scale to avoid hypoglycemic episodes at home. Avoid aggressive glycemic control in an elderly patient. Also her Hba1c is well controlled at 6.8. Patient does have tendency to be hyperglycemic now that she is S/P Whipple's. She does need to continue checking her sugars at home frequently and need close ff up with PCP for titration of insulin regimen. Discussed recommendation with Dr. Flores. Reason For Visit: PANCREATIC CANCER Physical Exam Vital Signs: Temp Pulse Resp BP Pulse Ox 98.2 F 87 17 110/67 100 10/22/18 09:51 10/22/18 09:51 10/22/18 09:51 10/22/18 09:51 10/22/18 09:51 Intake & Output 10/21/18 10/22/18 10/23/18 06:59 06:59 06:59 Intake Total 2079 1022 Output Total 90 Balance 2079 932 Weight 170 lb 6.677 oz 167 lb 15.876 oz General appearance: PRESENT: no acute distress, well-developed, well-nourished Head exam: PRESENT: atraumatic, normocephalic Eye exam: PRESENT: conjunctiva pink, EOMI, PERRLA. ABSENT: scleral icterus Ear exam: PRESENT: normal external ear exam Mouth exam: PRESENT: moist, tongue midline Neck exam: ABSENT: carotid bruit, JVD, lymphadenopathy, thyromegaly Respiratory exam: PRESENT: clear to auscultation valarie. ABSENT: rales, rhonchi, wheezes Cardiovascular exam: PRESENT: RRR. ABSENT: diastolic murmur, rubs, systolic murmur Pulses: PRESENT: normal dorsalis pedis pul GI/Abdominal exam: PRESENT: normal bowel sounds, soft. ABSENT: distended, guarding, mass, organolmegaly, rebound, tenderness Rectal exam: PRESENT: deferred Neurological exam: PRESENT: alert, awake, oriented to person, oriented to place, oriented to time, oriented to situation, CN II-XII grossly intact. ABSENT: motor sensory deficit Results Laboratory Results: 10/22/18 05:35 10/22/18 05:35 10/22/18 10/22/18 05:35 05:35 WBC 7.2 RBC 2.87 L Hgb 8.9 L Hct 26.9 L MCV 94 MCH 31.1 MCHC 33.2 RDW 17.2 H Plt Count 122 L Seg Neutrophils % 72.0 Lymphocytes % 16.7 Monocytes % 9.5 Eosinophils % 1.4 Basophils % 0.4 Absolute Neutrophils 5.2 Absolute Lymphocytes 1.2 Absolute Monocytes 0.7 Absolute Eosinophils 0.1 Absolute Basophils 0.0 Sodium 135.5 L Potassium 4.7 Chloride 105 Carbon Dioxide 25 Anion Gap 6 BUN 10 Creatinine 0.42 L Est GFR ( Amer) > 60 Est GFR (Non-Af Amer) > 60 Glucose 246 H Calcium 7.8 L Total Bilirubin 0.5 AST 21 ALT 19 Alkaline Phosphatase 133 H Total Protein 4.3 L Albumin 2.0 L Impressions: KUB X-Ray 10/11/18 17:02 IMPRESSION: NASOGASTRIC TUBE IN THE STOMACH. SURGICAL HARDWARE IN THE UPPER ABDOMEN WELL. Chest X-Ray 10/14/18 06:00 IMPRESSION: Improved aeration left lung. Lumbar Spine X-Ray 10/19/18 00:00 IMPRESSION: 1. ANTERIOR WEDGE DEFORMITY OF THE T12 VERTEBRAL BODY, AGE INDETERMINATE. PROBABLY OLD. IF THERE IS STRONG CLINICAL CONCERN, MAY CONSIDER CT OF THE LUMBAR SPINE TO INCLUDE THE LOWER THORACIC VERTEBRAE. 2. MULTILEVEL CHRONIC DEGENERATIVE CHANGES. Pelvis X-Ray 10/19/18 00:00 IMPRESSION: NEGATIVE STUDY OF THE PELVIS. Assessment and Plan - Diagnosis (1) Diabetes mellitus Is this a current diagnosis for this admission?: Yes Plan: Sugars are at goal in the 160-170s. Continue sliding scale. 10/17: Sugars running on the low end in the 70-80s. Encouraged to increase oral intake. Tube feeding also increased by surgery. 10/18: Sugars have improved with increase in oral intake. 10/19: Sugars at goal. 10/21: She had a hypoglycemic episode of 47 overnight. Otherwise, she continues to do well and is tolerating diet well. Diet is being advanced further by henry gonzales. Recommend holding off on Janumet on discharge. Discontinue sliding scale. 10/22: Patient is being discharged by surgery. Appear she is also being discharged on high dose sliding scale. Recommend holding off on Janumet and discharging patient on lower dose of metofmrin only and revising insulin sliding scale to a revised low dose scale to avoid hypoglycemic episodes at home. Avoid aggressive glycemic control in an elderly patient. Also her Hba1c is well controlled at 6.8. Patient does have tendency to be hyperglycemic now that she is S/P Whipple's. She does need to continue checking her sugars at home frequently and need close ff up with PCP for titration of insulin regimen. Discussed recommendation with Dr. Flores. (2) Pancreatic adenocarcinoma Is this a current diagnosis for this admission?: Yes Plan: S/ P Whipple's procedure on 10/11/18. (3) HTN (hypertension) Is this a current diagnosis for this admission?: Yes Plan: Blood pressures are well controlled. Continue lisinopril. (4) Hypomagnesemia Is this a current diagnosis for this admission?: Yes Plan: 10/18: Mg this morning is 1.3. Replace Mg. Will start on scheduled oral Mg. 10/19: MG is low again at 1.2. Replace with 4 gms IV. Will increase schedule PO Mg. 10/20: Repeat Mg elevated at 2.6. Hold oral Mg for now. 10/21: Resolved. (5) Hypokalemia Is this a current diagnosis for this admission?: Yes Plan: Repeat potassium is 3.5. Will continue to monitor electrolytes. 10/17: Resolved. - Time Time Spent with patient: 15-24 minutes
== END 2018-10-22 09:50 | disposition home health service (06) | DRG 407 ==
LOC: INOR 05:25 → ICU 16:15 → 5 10-15 20:10
PROVIDERS: ADMIT Surgery; ATTEND Surgery
PROC: 0DB94ZZ Excision of Duodenum, Percutaneous Endoscopic Approach (ICD-10-PCS; 2018-10-11)
PROC: 30233K1 Transfusion of Nonautologous Frozen Plasma into Peripheral Vein, Percutaneous Approach (ICD-10-PCS; 2018-10-11)
PROC: 30233N1 Transfusion of Nonautologous Red Blood Cells into Peripheral Vein, Percutaneous Approach (ICD-10-PCS; 2018-10-11)
PROC: 30233R1 Transfusion of Nonautologous Platelets into Peripheral Vein, Percutaneous Approach (ICD-10-PCS; 2018-10-11)
PROC: 30233M1 Transfusion of Nonautologous Plasma Cryoprecipitate into Peripheral Vein, Percutaneous Approach (ICD-10-PCS; 2018-10-11)
PROC: 0FBG4ZZ Excision of Pancreas, Percutaneous Endoscopic Approach (ICD-10-PCS; principal; 2018-10-11 07:30)
DX: C25.0 Malignant neoplasm of head of pancreas (principal); D63.0 Anemia in neoplastic disease; E83.42 Hypomagnesemia; E87.6 Hypokalemia; I10 Essential (primary) hypertension; E88.09 Other disorders of plasma-protein metabolism, not elsewhere classified; E11.8 Type 2 diabetes mellitus with unspecified complications; I05.2 Rheumatic mitral stenosis with insufficiency; E78.5 Hyperlipidemia, unspecified; K21.9 Gastro-esophageal reflux disease without esophagitis; Z79.84 Long term (current) use of oral hypoglycemic drugs; Z79.82 Long term (current) use of aspirin; Z79.899 Other long term (current) drug therapy
CPT/HCPCS: 00794; 36415; 36430; 71045; 72100; 72170; 74018; 80048; 80053; 80076; 82040; 82803; 82947; 82962; 83036; 83605; 83690; 83735; 84132; 84478; 85025; 85610; 85730; 86850; 86900; 86901; 86920; 88305; 88307; 88309; 88331; 88342; 93005; 93010; 93306; 94002; 94003; A6266; C1894; C9250; J0131; J0330; J0610; J0690; J1170; J1644; J1815; J1940; J2250; J2270; J2370; J2704; J3010; J3475; J3480; J3490; J7030; J7120; P9016; P9017; P9035; P9041; P9047; S0028

== ENCOUNTER 2018-10-22 17:37 | Emergency (ER) | payer MEDICARE, OTHER ==
--- NOTE | 2018-10-22 19:02 | ER Document Report ---
ED General - General Chief Complaint: Abdominal Swelling Stated Complaint: ABDOMINAL PAIN/SWELLING,POST SURGICAL Time Seen by Provider: 10/22/18 18:27 Primary Care Provider: TANISHA TURNER MD [Primary Care Provider] - Follow up as needed Notes: Patient is a 68-year-old female status post Whipple, performed by Dr. Flores, discharged from the hospital earlier this morning who presents due to concerns of swelling to her left lower abdominal wall. Patient states that she noticed this within the last 4 hours. She is very clear to state that there is no abdominal pain, no redness, no warmth and she otherwise feels "really good". Any nausea, vomiting and states that this is her only concern today. No increased drainages from her midline incision. She did contact the on-call surgical clinic who had scheduled an appointment for her tomorrow but the on- call nurse instructed her to come to the emergency department for assessment. She has not noted that anything seems to improve or worsen this area of s welling. Describes it as being very mild. Nonpainful. Relatively constant since she first noticed it. TRAVEL OUTSIDE OF THE [place] IN LAST 30 DAYS: No - Related Data Allergies/Adverse Reactions: Sulfa (Sulfonamide Antibiotics) Allergy (Mild, Verified 10/22/18 17:38) Generalized rash epinephrine Adverse Reaction (Verified 10/22/18 17:38) Past Medical History - General Information source: Patient - Social History Smoking Status: Never Smoker Chew tobacco use (# tins/day): No Frequency of alcohol use: None Drug Abuse: None Lives with: Spouse/Significant other Family History: Reviewed & Not Pertinent Patient has suicidal ideation: No Patient has homicidal ideation: No - Past Medical History Cardiac Medical History: Reports: Hx Hypercholesterolemia, Hx Hypertension Denies: Hx Atrial Fibrillation, Hx Congestive Heart Failure, Hx Coronary Artery Disease, Hx Heart Attack, Hx Peripheral Vascular Disease, Hx Pulmonary Embolism, Hx Heart Murmur Pulmonary Medical History: Reports: Hx Asthma Denies: Hx Bronchitis, Hx COPD, Hx Pneumonia, Hx Respiratory Failure, Hx Sleep Apnea, Hx Tuberculosis Neurological Medical History: Reports: Hx Cerebrovascular Accident - LEFT EYE DEFICITS. Denies: Hx Seizures Endocrine Medical History: Reports: Hx Diabetes Mellitus Type 2. Denies: Hx Graves' Disease, Hx Hyperthyroidism, Hx Hypothyroidism Renal/ Medical History: Reports: Hx Kidney Stones, Hx Ovarian Cysts, Hx Peritoneal Dialysis. Denies: Hx End Stage Renal Disease, Hx Pelvic Inflammatory Disease Malignancy Medical History: Denies: Hx Breast Cancer, Hx Cervical Cancer, Hx Leukemia, Hx Lung Cancer, Hx Ovarian Cancer GI Medical History: Reports: Hx Gastroesophageal Reflux Disease. Denies: Hx Crohn's Disease, Hx Hepatitis, Hx Hiatal Hernia, Hx Irritable Bowel, Hx Liver Failure, Hx Pancreatitis - PANCREATIC CANCER, Hx Ulcer Musculoskeletal Medical History: Reports Hx Arthritis, Denies Hx Fibromyalgia, Denies Hx Multiple Sclerosis, Denies Hx Muscular Dystrophy Psychiatric Medical History: Reports: Hx Depression Denies: Hx Bipolar Disorder, Hx Dementia, Hx Post Traumatic Stress Disorder, Hx Schizophrenia Traumatic Medical History: Reports: Hx Fractures - LEFT FEMUR Infectious Medical History: Denies: Hx Hepatitis, Hx HIV Past Surgical History: Reports: Hx Appendectomy, Hx Cholecystectomy, Hx Gastric Bypass Surgery, Hx Gynecologic Surgery, Hx Orthopedic Surgery - left femur fx, Hx Tonsillectomy, Hx Tubal Ligation. Denies: Hx Bowel Surgery, Hx Section, Hx Colostomy, Hx Coronary Artery Bypass Graft, Hx Herniorrhaphy, Hx Hysterectomy, Hx Mastectomy, Hx Open Heart Surgery, Hx Pacemaker - Immunizations Hx Diphtheria, Pertussis, Tetanus Vaccination: Yes Hx Pneumococcal Vaccination: 04/09/18 Review of Systems - Review of Systems Notes: Constitutional: Negative for fever. HENT: Negative for sore throat. Eyes: Negative for visual changes. Cardiovascular: Negative for chest pain. Respiratory: Negative for shortness of breath. Gastrointestinal: Positive for left lower abdominal swelling Genitourinary: Negative for dysuria. Musculoskeletal: Negative for back pain. Skin: Negative for rash. Neurological: Negative for headaches, weakness or numbness. 10 point ROS negative except as marked above and in HPI. Physical Exam - Vital signs Vitals: Temp Pulse Resp BP Pulse Ox 98.3 F 83 17 122/66 100 10/22/18 17:55 10/22/18 17:55 10/22/18 17:55 10/22/18 17:55 10/22/18 17:55 Interpretation: Normal Notes: PHYSICAL EXAMINATION: GENERAL: Well-appearing, well-nourished and in no acute distress. HEAD: Atraumatic, normocephalic. EYES: Pupils equal round and reactive to light, extraocular movements intact, sclera anicteric, conjunctiva are normal. ENT: nares patent, oropharynx clear without exudates. Moist mucous membranes. NECK: Normal range of motion, supple without lymphadenopathy LUNGS: Breath sounds clear to auscultation bilaterally and equal. No wheezes rales or rhonchi. HEART: Regular rate and rhythm without murmurs ABDOMEN: Soft, nontender, normoactive bowel sounds. No guarding, no rebound. Well-healing mid abdominal incisional line with one area of what appears to be some mild purulent expression which patient states is an abscess that drained postoperatively. There is some minimal dependent edema in the abdominal wall of the left lower pannus that is completely nontender. No warmth or erythema. No masses appreciated. EXTREMITIES: Normal range of motion, no pitting or edema. No cyanosis. NEUROLOGICAL: No focal neurological deficits. Moves all extremities spontaneously and on command. PSYCH: Normal mood, normal affect. SKIN: Warm, Dry, normal turgor, no rashes or lesions noted. Course - Re-evaluation Re-evalutation: 10/22/18 19:02 Patient presents with some mild left lower pannus abdominal wall edema. I do not clinically suspect an intra-abdominal abscess, abdominal wall abscess, or any other clinical pathology of concern at this point. I have contacted Dr. Tovar and requested that he come to the bedside to evaluate the patient as she did was just discharged less than 12 hours ago. At this point I do not think labs or CT imaging is indicated. 10/22/18 19:29 Dr. Ernst is a seen and assessed the patient, agrees that this does not appear to be anything of concern in the postoperative period. At this time will discharge with return precautions and follow-up recommendations. Verbal discharge instructions given a the bedside and opportunity for questions given. Medication warnings reviewed. Patient is in agreement with this plan and has verbalized understanding of return precautions and the need for surgical follow- up tomorrow morning with Dr. Flores as scheduled. - Vital Signs Vital signs: Temp Pulse Resp BP Pulse Ox 98.7 F 83 21 H 127/72 H 98 10/22/18 18:08 10/22/18 17:55 10/22/18 18:08 10/22/18 18:08 10/22/18 18:08 Discharge - Discharge Clinical Impression: Postoperative concern, Abdominal swelling Condition: Good Disposition: HOME, SELF-CARE Additional Instructions: Your abdominal exam is very reassuring. Dr. Tovar has seen and evaluated and agrees that this is nothing of concern at this time. Please follow-up tomorrow as scheduled. Return for increasing pain, vomiting, fever greater than 100.4 F, or any other concerns that you may have. Referrals: TANISHA TURNER MD [Primary Care Provider] - Follow up as needed
[2018-10-22 20:11] VITALS: BP 126/72
--- NOTE | 2018-10-23 07:41 | CONSULTATION REPORT E ---
Consultation Report NAME: NARGIS MELENDREZ : 1950 AGE: 68Y DATE: 10/22/2018 TO: LAURE LOWE M.D. FROM: Uvaldo Lamb [facility], Requesting [facility] The patient is seen at the request of Dr. Lamb. Time is 7:30 p.m. CHIEF COMPLAINT: Asymmetry of patient's panniculus. REPORT OF CONSULTATION: The patient is a 68-year-old white female, well-known to the general surgery service, now 2-1/2 weeks status post pancreatoduodenectomy by Dr. Stevan Flores. The patient had an uneventful postoperative course and was discharged home early today on 10/22/2018. The patient reports she did well, tolerating a diet. Denies fever and abdominal pain. She was told by her daughter that her left-sided lower abdominal wall was larger than the right, so she sought medical care and came to the emergency department. She was evaluated by Dr. Lamb who felt that her findings were of no clinical significance and called surgery for a postoperative opinion. PAST MEDICAL AND SURGICAL HISTORY, REVIEW OF SYSTEMS, ALLERGIES, MEDICATIONS: Can all be found in her regular medical record. PHYSICAL EXAMINATION: The patient is examined in room 5 in the Emergency Department. In no acute distress. VITAL SIGNS: Stable. GENERAL: She is awake, alert, and oriented x4. She has a sense of humor. HEENT: Eyes are without icterus. NECK: No adenopathy. LUNGS: Diminished at the bases bilaterally. HEART: Without murmur or gallop. ABDOMEN: Examined. Operative robin in place, with some serous fatty drainage from the midline incision upper third. The abdomen is completely benign otherwise. Multiple small superficial scabbed ulcers consistent with diabetic skin. There is an operative jejunostomy in the right lower quadrant. The abdomen is otherwise benign without any tenderness. There is no foul smell to the midline drainage. The remainder of the physical exam is nonfocal. DIAGNOSTIC STUDIES: No laboratory studies performed. IMPRESSION: Unremarkable physical exam in a patient 2 weeks status post pancreatoduodenectomy; suspect a pannicular asymmetry consistent with postoperative state. RECOMMENDATIONS: 1. I explained to the patient and her family that the perceived asymmetry may be just that and of no clinical significance. 2. I have opened up the draining site from the midline wound in the upper third with a Q-tip, which probes down to the fascia. The wound is irrigated with peroxide and packed open with half of a 4 x 4. We have also developed a small plastic bag/pouch for the jejunostomy tube. 3. We have asked the patient to contact our office, [facility], in the morning to set up home health dressing changes and wound management. 4. We will also see the patient in our office in approximately 4 days for wound check. DICTATING PHYSICIAN: LAURE LOWE M.D. [id number] PHY#: [id number] ID: [id number] JOB#: [id number] ACCT: [id number] cc:LAURE LOWE M.D. >
== END 2018-10-22 20:52 | disposition home or self-care (01) ==
LOC: ER 17:37
DX: R19.00 Intra-abdominal and pelvic swelling, mass and lump, unspecified site (principal); Z98.890 Other specified postprocedural states; Z88.2 Allergy status to sulfonamides
CPT/HCPCS: 99283

== ENCOUNTER → 2018-11-12 | Outpatient (CLI) | payer MEDICARE, OTHER ==
--- NOTE | 2018-11-12 11:37 | XCELERA REPORT ---
[address] [address] Lower Extremity Venous Evaluation Procedure: Color flow and duplex imaging bilaterally of the veins of the lower extremities as well as the Common Femoral veins. Right Sided Venous Evaluation Abnormal vessel filling wall to wall, partial compression and Colour flow in the Femoral vein. Normal otherwise. Left Sided Venous Evaluation Normal vessel filling wall to wall, compression and augmentation as well as Colour flow down to the infrageniculate veins. Critical Findings Discussed with Dr Lopez. Interpretation Summary Positive for deep venous thrombosis in the right Femoral vein. Seems sub acute or chronic. Name: NARGIS MELENDREZ Age: 68 yrs Gender: Female : 1950 Patient Status: Outpatient Patient Location: Study Date: 11/12/2018 10:02 AM Reason For Study: PAIN AND SWELLING Ordering Physician: SULY LOPEZ Performed By: Pippa Kan : SULY LOPEZ > Wali Banks
== END ==
LOC: SP 09:38
PROVIDERS: ATTEND Surgery
DX: M79.89 Other specified soft tissue disorders (principal); I82.411 Acute embolism and thrombosis of right femoral vein; M79.606 Pain in leg, unspecified
CPT/HCPCS: 93970

== ENCOUNTER 2018-11-19 21:22 | Inpatient (IN) | payer MEDICARE, OTHER ==
[2018-11-19] MEDS ORDERED: DEXTROSE 40% GEL 15 GM TUBE PO PRN ×2 (21:36)
[2018-11-19] MEDS ORDERED: DEXTROSE 50%-WATER 25 GM/50 ML DISP.SYRIN IV PRN ×2 (21:36)
[2018-11-19] MEDS ORDERED: GLUCAGON,HUMAN RECOMB 1 MG INJ SUBCUT PRN (21:36)
[2018-11-19] MEDS ORDERED: VANCOMYCIN HCL 0 MG in DEXTROSE 5%-WATER 250 ML IV NR (21:45)
[2018-11-19] MEDS: PROMETHAZINE HCL INJ 25 MG/1 ML VIAL IV PRN (22:14)
[2018-11-19] MEDS: HYDROMORPHONE HCL INJ/PF 2 MG/ML AMPULE IV PRN (22:14)
[2018-11-19] MEDS: RINGERS SOLUTION,LACTATED 1,000 ML IV PRN (22:15)
--- NOTE | 2018-11-19 22:26 | RADIOLOGY REPORT (SQ) ---
EXAM DESCRIPTION: XR CHEST 1 VIEW COMPLETED DATE/TME: 11/19/2018 00:00 CLINICAL HISTORY: 68 years, Female, shortness of breath COMPARISON: 10/24/2018 chest NUMBER OF VIEWS: 1 TECHNIQUE: Portable chest LIMITATIONS: None. FINDINGS: The heart size is normal. Stable calcifications projecting over the left heart border. [id number] catheter in place. Mild atheromatous change thoracic aorta. Lungs clear. No pneumothorax. Osteopenia IMPRESSION: No acute cardiopulmonary process copyright 2010 [email or web address]- All Rights Reserved
[2018-11-19] MEDS ORDERED: VANCOMYCIN HCL INJ 1000 MG VIAL IV PRN (23:06)
[2018-11-19 23:26] LABS: ABSOLUTE LYMPHOCYTES (AUTO) 1.8 10^3/uL (0.5-4.7); ABSOLUTE MONOCYTES (AUTO) 0.6 10^3/uL (0.1-1.4); ABSOLUTE NEUT (AUTO) 6.6 10^3/uL (1.7-8.2); BASOPHILS % (AUTO) 0.5 % (0-2); EOSINOPHILS % (AUTO) 0.1 % (0-6); HEMATOCRIT 30.5 % (36.0-47.0); HEMOGLOBIN 10.1 g/dL (12.0-15.5); LYMPHOCYTES % (AUTO) 19.6 % (13-45); MEAN CORPUSCULAR HEMOGLOBIN 30.7 pg (27.0-33.4); MEAN CORPUSCULAR HGB CONC 33.2 g/dL (32.0-36.0); MEAN CORPUSCULAR VOLUME 92 fl (80-97); MONOCYTES % (AUTO) 6.8 % (3-13); PLATELET COUNT 182 10^3/uL (150-450); RED CELL DISTRIBUTION WIDTH 15.6 % (11.5-14.0); TOTAL CELLS COUNTED % (AUTO) 100 %; WHITE BLOOD COUNT 9.1 10^3/uL (4.0-10.5)
[2018-11-19 23:29] LABS: ALANINE AMINOTRANSFERASE 46 U/L (9-52); ALBUMIN 2.1 g/dL (3.5-5.0); ALKALINE PHOSPHATASE 216 U/L (38-126); AMYLASE 34 U/L (30-110); ANION GAP 8 (5-19); ASPARTATE AMINO TRANSFERASE 44 U/L (14-36); BILIRUBIN,DIRECT 0.4 mg/dL (0.0-0.4); BILIRUBIN,TOTAL 0.6 mg/dL (0.2-1.3); BLOOD UREA NITROGEN 12 mg/dL (7-20); CALCIUM 7.6 mg/dL (8.4-10.2); CARBON DIOXIDE 24 mmol/L (22-30); CHLORIDE 106 mmol/L (98-107); SODIUM 137.5 mmol/L (137-145); TOTAL PROTEIN 4.9 g/dL (6.3-8.2)
[2018-11-19 23:44] LABS: LIPASE < 10.0 U/L (23-300)
[2018-11-19 23:45] LABS: GLUCOSE 51 mg/dL (75-110)
[2018-11-20] MEDS ORDERED: PIPERACILLIN SODIUM/TAZOBACTAM 3.375 GM in NORMAL SALINE 100 ML IV SCH ×2
[2018-11-20] MEDS ORDERED: MAGNESIUM SULFATE INJ 8 MEQ/2 ML IV ONE (00:07)
[2018-11-20] MEDS: MAGNESIUM SULFATE 1 GM/D5W 100 ML IV SCH ×2 (00:44→03:34)
[2018-11-20 00:52] LABS: APPEARANCE,URINE CLEAR; BILIRUBIN,URINE NEGATIVE (NEGATIVE); COLOR,URINE STRAW; GLUCOSE, URINE NEGATIVE (NEGATIVE); KETONES,URINE NEGATIVE (NEGATIVE); LEUKOCYTE ESTERASE,URINE NEGATIVE (NEGATIVE); NITRITE,URINE NEGATIVE (NEGATIVE); PROTEIN,URINE NEGATIVE (NEGATIVE); URINE SPECIFIC GRAVITY 1.019; UROBILINOGEN,URINE NEGATIVE mg/dL (<2.0)
[2018-11-20] MEDS ORDERED: VANCOMYCIN HCL 1,000 MG in DEXTROSE 5%-WATER 250 ML IV ONE (01:00)
[2018-11-20] MEDS ORDERED: VANCOMYCIN HCL INJ 1000 MG VIAL ONE (01:06)
[2018-11-20] MEDS ORDERED: PIPERACILLIN/TAZOBACTAM 3.375 GM VIAL IV ONE (01:06)
--- NOTE | 2018-11-20 01:46 | PDOC H&P ---
History of Present Illness Admission Date/PCP: 11/19/18 21:22 Patient complains of: Nausea, vomiting, and abdominal pain. 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 The patient has done reasonably well at home, until Monday. She began to have abdominal distention, nausea, and vomiting. She also reports abdominal pain. It is sharp and stabbing. It is situated in the left mid abdomen but radiates to the right lower quadrant and left lower quadrant. She rates it an 8 out of 10. She denies back pain, chest pain, shortness of breath, fevers, chills, dizziness, blurry vision, headache, melena, hematochezia, hematemesis. She does report fatigue and malaise. Nothing makes her pain better or worse. Past Medical History Cardiac Medical History: Reports: Hyperlipidema, Hypertension Denies: Atrial Fibrillation, Congestive Heart Failure, Coronary Artery Disease, Myocardial Infarction, Peripheral Vascular Disease, Pulmonary Embolism, Heart Murmur Pulmonary Medical History: Reports: Asthma Denies: Bronchitis, Chronic Obstructive Pulmonary Disease (COPD), Pneumonia, Respiratory Failure, Sleep Apnea, Tuberculosis Neurological Medical History: Denies: Seizures Endocrine Medical History: Reports: Diabetes Mellitus Type 2 Denies: Hyperthyroidism, Hypothyroidism Renal/ Medical History: Denies: End Stage Renal Disease Malignancy Medical History: Denies: Breast Cancer, Cervical Cancer, Leukemia, Lung Cancer, Ovarian Cancer GI Medical History: Reports: Gastroesophageal Reflux Disease Denies: Crohn's Disease, Hepatitis, Hiatal Hernia Musculoskeltal Medical History: Reports: Arthritis Denies: Fibromyalgia Psychiatric Medical History: Reports: Depression Denies: Bipolar Disorder, Dementia, Post Traumatic Stress Disorder Hematology: Reports: Anemia Denies: Hemophilia, Sickle Cell Disease Infectious Medical History: Denies: HIV Past Surgical History Past Surgical History: Reports: Appendectomy, Cholecystectomy, Gastric Bypass Surgery, Orthopedic Surgery - left femur fx, Tonsillectomy, Tubal Ligation Denies: Amputation, Section, Colostomy, Coronary Artery Bypass Graft, Herniorrhaphy, Hysterectomy, Mastectomy, Pacemaker Social History Smoking Status: Never Smoker Frequency of Alcohol Use: Rare Hx Recreational Drug Use: No Hx Prescription Drug Abuse: No Family History Family History: Reviewed & Not Pertinent Parental Family History Reviewed: Yes Children Family History Reviewed: Yes Sibling(s) Family History Reviewed.: Yes Medication/Allergy Home Medications: Simvastatin [Zocor 20 mg Tablet] 40 mg PO QHS 05/17/12 Aspirin [Aspirin EC] 81 mg PO DAILY 10/16/15 Sertraline HCl [Zoloft] 100 mg PO DAILY 10/16/15 Bimatoprost [Lumigan 0.01% Oph Soln 2.5 ml/Bottle] 1 drop OP DAILY 07/11/18 Cyanocobalamin (Vitamin B-12) [Vitamin B-12 Inj 1000 Mcg/1 ml Vial] 1,000 mcg IM .MONTHLY 07/11/18 Montelukast Sodium [Singulair 10 mg Tablet] 10 mg PO QHS 07/11/18 Pramipexole Di-HCl [Mirapex] 1 mg PO QPM PRN 07/11/18 Sitagliptin Phos/Metformin HCl [Janumet 50-1,000 Mg Tablet] 1 each PO BID 07/11/18 Clobetasol Propionate [Temovate 0.05% Ointment 15 Gm] 1 applic TP BID 10/04/18 Lisinopril [Prinivil] 5 mg PO QAM 10/04/18 Lorazepam [Ativan 0.5 mg Tablet] 0.5 mg PO Q4 PRN 10/04/18 Ondansetron [Ondansetron Odt] 8 mg PO BID 10/04/18 Pantoprazole Sodium [Protonix] 40 mg PO BID 10/04/18 Promethazine HCl [Phenergan 25 mg Tablet] 25 mg PO Q6 PRN 10/04/18 Fluconazole [Diflucan] 150 mg PO PRN PRN 10/11/18 Allergies/Adverse Reactions: Sulfa (Sulfonamide Antibiotics) Allergy (Mild, Verified 10/22/18 17:38) Generalized rash epinephrine Adverse Reaction (Verified 10/22/18 17:38) Review of Systems Constitutional: PRESENT: anorexia, fatigue, weakness. ABSENT: chills, fever(s), headache(s), night sweats Eyes: ABSENT: visual disturbances Ears: ABSENT: hearing changes Cardiovascular: ABSENT: chest pain, dyspnea on exertion Respiratory: ABSENT: cough Gastrointestinal: PRESENT: abdominal pain, nausea, vomiting. ABSENT: hematemesis, hematochezia, melena Genitourinary: ABSENT: dysuria Musculoskeletal: ABSENT: back pain Integumentary: ABSENT: pruritus, rash Neurological: ABSENT: confusion, convulsions Psychiatric: ABSENT: anxiety, depression Endocrine: ABSENT: cold intolerance, heat intolerance Hematologic/Lymphatic: ABSENT: easy bleeding, easy bruising Physical Exam General appearance: PRESENT: no acute distress, cooperative Head exam: PRESENT: atraumatic, normocephalic Eye exam: PRESENT: EOMI, PERRLA. ABSENT: scleral icterus Mouth exam: ABSENT: moist, neck supple Teeth exam: ABSENT: poor dentation Neck exam: ABSENT: meningismus, tenderness, thyromegaly, tracheal deviation Respiratory exam: PRESENT: clear to auscultation valarie, unlabored. ABSENT: accessory muscle use, chest wall tenderness, tachypnea, wheezes Cardiovascular exam: PRESENT: RRR Pulses: PRESENT: normal radial pulses Vascular exam: PRESENT: normal capillary refill. ABSENT: pallor GI/Abdominal exam: PRESENT: soft, other - Feeding tube in the lower abdominal midline. ABSENT: distended, guarding, rigid, tenderness Rectal exam: PRESENT: deferred Extremities exam: ABSENT: clubbing Musculoskeletal exam: ABSENT: deformity Neurological exam: PRESENT: alert, awake, oriented to person, oriented to place, oriented to time, oriented to situation, CN II-XII grossly intact. ABSENT: motor sensory deficit Psychiatric exam: ABSENT: agitated, anxious, depressed Focused psych exam: ABSENT: delusional Skin exam: ABSENT: cyanosis, erythema, jaundice Assessment & Plan - Diagnosis (1) Abdominal pain Qualifiers: Abdominal location: left lower quadrant Qualified Code(s): R10.32 - Left lower quadrant pain Is this a current diagnosis for this admission?: Yes (2) Nausea and vomiting Qualifiers: Vomiting type: unspecified Vomiting Intractability: intractable Qualified Code(s): R11.2 - Nausea with vomiting, unspecified Is this a current diagnosis for this admission?: Yes - Plan Summary Plan Summary: This is a 68-year-old female recently status post Whipple procedure. The patient reports a 2 to 3-day history of unrelenting nausea and vomiting. The patient has not been able to keep anything down. She presented to [facility] where they evaluated her and treated her for "sepsis". She was then sent here for further care. I do not have their lab work, however I do have an IV contrasted CT scan to review. I have reviewed these images. The patient appears to have a bowel obstruction, likely at the jejunojejunal anastomosis. There is no sign of inflammatory changes of the bowel. There is no sign of abdominal wall hernia. There is no free fluid or free air in the abdomen. Stat lab work. Cagle catheter. Intravenous fluid. Repeat CT scan with oral contrast. Further treatment decisions to be made after her lab work is back.
[2018-11-20] MEDS: HYDROMORPHONE HCL INJ/PF 2 MG/ML AMPULE IV PRN ×4 (01:57→21:54)
--- NOTE | 2018-11-20 02:01 | RADIOLOGY REPORT (SQ) ---
EXAM DESCRIPTION: CT ABDOMEN PELVIS WITHOUT IV CONTRAST COMPLETED DATE/TME: 11/20/2018 00:00 CLINICAL HISTORY: 68 years, Female, nausea vomiting, s/p whipple COMPARISON: None. TECHNIQUE: 380 Images stored on PACS. All CT scanners at this facility use dose modulation, iterative reconstruction, and/or weight based dosing when appropriate to reduce radiation dose to as low as reasonably achievable (ALARA). [facility]: Dose Right [facility]: CareDose [facility]: Dose Right [facility]: Teradose 4D [facility]: [employer] LIMITATIONS: None. FINDINGS: Limited evaluation of the lung bases is unremarkable. Osseous structures show endplate degenerative changes throughout the lumbar spine. Postsurgical change left femur. Diffuse fatty infiltrative change to the liver. Status post cholecystectomy. Pneumobilia may be postoperative in nature. Surgical clips in the epigastric region, correlate with surgical history. The patient is status post Whipple's procedure. The spleen, adrenal glands, are unremarkable. Nonobstructing 5 mm right renal calculus. Kidneys are otherwise grossly unremarkable. Little remaining pancreatic tissue. Jejunostomy tube in place. Subjective area of jejunal wall thickening, near anastomosis in the left mid abdomen. Minor adjacent inflammation. Gas and stool throughout colon. No gross evidence for bowel obstruction. Cagle catheter in urinary bladder. Air in the bladder is likely iatrogenic. Small amount of free fluid. No free air. Moderate atheromatous change. IMPRESSION: Postsurgical changes, as above with a subjective areas of jejunal wall thickening near anastomosis in the left mid abdomen. Small amount of free fluid. Pneumobilia which is likely iatrogenic. Fatty infiltrative change to the liver. Nonobstructing right renal calculus. TECHNICAL DOCUMENTATION: Quality ID # [id number]: Final reports with documentation of one or more dose reduction techniques (e.g., Automated exposure control, adjustment of the mA and/or kV according to patient size, use of iterative reconstruction technique) copyright 2010 [employer]- All Rights Reserved
[2018-11-20] MEDS ORDERED: CALCIUM GLUCONATE 1000 MG/10 ML INJ IV ONE (02:26)
[2018-11-20] MEDS: RINGERS SOLUTION,LACTATED 1,000 ML IV PRN (05:20)
[2018-11-20 06:37] LABS: ABSOLUTE EOSINOPHILS # (AUTO) 0.1 10^3/uL (0.0-0.6); ABSOLUTE LYMPHOCYTES (AUTO) 2.2 10^3/uL (0.5-4.7); ABSOLUTE MONOCYTES (AUTO) 0.6 10^3/uL (0.1-1.4); ABSOLUTE NEUT (AUTO) 4.7 10^3/uL (1.7-8.2); BASOPHILS % (AUTO) 0.3 % (0-2); EOSINOPHILS % (AUTO) 0.9 % (0-6); HEMOGLOBIN 8.4 g/dL (12.0-15.5); LYMPHOCYTES % (AUTO) 29.2 % (13-45); MEAN CORPUSCULAR HGB CONC 33.6 g/dL (32.0-36.0); MEAN CORPUSCULAR VOLUME 92 fl (80-97); MONOCYTES % (AUTO) 8.1 % (3-13); PLATELET COUNT 172 10^3/uL (150-450); RED BLOOD COUNT 2.71 10^6/uL (3.72-5.28); RED CELL DISTRIBUTION WIDTH 16.1 % (11.5-14.0); SEGMENTED NEUTROPHILS % (AUTO) 61.5 % (42-78); TOTAL CELLS COUNTED % (AUTO) 100 %; WHITE BLOOD COUNT 7.6 10^3/uL (4.0-10.5)
[2018-11-20 06:55] LABS: ALANINE AMINOTRANSFERASE 43 U/L (9-52); ALBUMIN 1.6 g/dL (3.5-5.0); ALKALINE PHOSPHATASE 174 U/L (38-126); ASPARTATE AMINO TRANSFERASE 29 U/L (14-36); BILIRUBIN,DIRECT 0.3 mg/dL (0.0-0.4); BILIRUBIN,TOTAL 0.3 mg/dL (0.2-1.3); BLOOD UREA NITROGEN 10 mg/dL (7-20); CALCIUM 7.6 mg/dL (8.4-10.2); CARBON DIOXIDE 27 mmol/L (22-30); CHLORIDE 106 mmol/L (98-107); POTASSIUM 3.4 mmol/L (3.6-5.0); SODIUM 137.4 mmol/L (137-145); TOTAL PROTEIN 3.9 g/dL (6.3-8.2)
[2018-11-20 07:00] LABS: AMYLASE < 30 U/L (30-110); LIPASE < 10.0 U/L (23-300)
[2018-11-20 07:02] LABS: GLUCOSE 63 mg/dL (75-110)
[2018-11-20 07:08] LABS: ANION GAP 4 (5-19)
--- NOTE | 2018-11-20 08:48 | PDOC PROGRESS REPORT ---
Subjective Progress Note for:: 11/20/18 Subjective:: still with some abd cramping, sl better than last night no flatus. Reason For Visit: NAUSEA,VOMITING,HYPOTENSION Physical Exam Vital Signs: Temp Pulse Resp BP Pulse Ox 98.7 F 67 7 L 102/58 L 100 11/19/18 21:32 11/19/18 21:32 11/20/18 06:02 11/20/18 06:02 11/20/18 06:02 Intake & Output 11/19/18 11/20/18 11/21/18 06:59 06:59 06:59 Intake Total 1544 Output Total 1425 Balance 119 Weight 67 kg General appearance: PRESENT: mild distress Head exam: PRESENT: normocephalic Eye exam: PRESENT: EOMI Ear exam: PRESENT: normal external ear exam Mouth exam: PRESENT: moist Neck exam: PRESENT: full ROM Respiratory exam: PRESENT: clear to auscultation valarie Cardiovascular exam: PRESENT: RRR Pulses: PRESENT: normal radial pulses, normal femoral pulses GI/Abdominal exam: PRESENT: hypoactive bowel sounds, tenderness - mild tenderniess in upper abd, no peritoneal irritation Rectal exam: PRESENT: deferred Musculoskeletal exam: PRESENT: full ROM Neurological exam: PRESENT: alert, awake, oriented to person, oriented to place Psychiatric exam: PRESENT: appropriate affect Skin exam: PRESENT: dry Results Laboratory Results: 11/20/18 06:18 11/20/18 06:18 11/19/18 11/19/18 11/20/18 22:53 22:53 00:35 WBC 9.1 RBC 3.30 L Hgb 10.1 L Hct 30.5 L MCV 92 MCH 30.7 MCHC 33.2 RDW 15.6 H Plt Count 182 Seg Neutrophils % 73.0 Lymphocytes % 19.6 Monocytes % 6.8 Eosinophils % 0.1 Basophils % 0.5 Absolute Neutrophils 6.6 Absolute Lymphocytes 1.8 Absolute Monocytes 0.6 Absolute Eosinophils 0.0 Absolute Basophils 0.0 Sodium 137.5 Potassium 4.0 Chloride 106 Carbon Dioxide 24 Anion Gap 8 BUN 12 Creatinine 0.74 Est GFR ( Amer) > 60 Est GFR (Non-Af Amer) > 60 Glucose 51 L Lactic Acid 0.8 Calcium 7.6 L Magnesium 1.2 L* Total Bilirubin 0.6 AST 44 H ALT 46 Alkaline Phosphatase 216 H Total Protein 4.9 L Albumin 2.1 L Amylase 34 Lipase < 10.0 L Urine Color Urine Appearance Urine pH Ur Specific [place] Urine Protein Urine Glucose (UA) Urine Ketones Urine Blood Urine Nitrite Ur Leukocyte Esterase Urine WBC (Auto) Urine RBC (Auto) 11/20/18 11/20/18 11/20/18 00:35 06:18 06:18 WBC 7.6 RBC 2.71 L Hgb 8.4 L Hct 25.0 L MCV 92 MCH 31.0 MCHC 33.6 RDW 16.1 H Plt Count 172 Seg Neutrophils % 61.5 Lymphocytes % 29.2 Monocytes % 8.1 Eosinophils % 0.9 Basophils % 0.3 Absolute Neutrophils 4.7 Absolute Lymphocytes 2.2 Absolute Monocytes 0.6 Absolute Eosinophils 0.1 Absolute Basophils 0.0 Sodium 137.4 Potassium 3.4 L Chloride 106 Carbon Dioxide 27 Anion Gap 4 L BUN 10 Creatinine 0.70 Est GFR ( Amer) > 60 Est GFR (Non-Af Amer) > 60 Glucose 63 L Lactic Acid Calcium 7.6 L Magnesium 1.8 Total Bilirubin 0.3 AST 29 ALT 43 Alkaline Phosphatase 174 H Total Protein 3.9 L Albumin 1.6 L Amylase < 30 L Lipase < 10.0 L Urine Color STRAW Urine Appearance CLEAR Urine pH 5.0 Ur Specific [place] 1.019 Urine Protein NEGATIVE Urine Glucose (UA) NEGATIVE Urine Ketones NEGATIVE Urine Blood NEGATIVE Urine Nitrite NEGATIVE Ur Leukocyte Esterase NEGATIVE Urine WBC (Auto) 0 Urine RBC (Auto) 0 Impressions: Chest X-Ray 11/19/18 00:00 IMPRESSION: No acute cardiopulmonary process copyright 2010 [employer]- All Rights Reserved Abdomen/Pelvis CT 11/20/18 00:00 IMPRESSION: Postsurgical changes, as above with a subjective areas of jejunal wall thickening near anastomosis in the left mid abdomen. Small amount of free fluid. Pneumobilia which is likely iatrogenic. Fatty infiltrative change to the liver. Nonobstructing right renal calculus. TECHNICAL DOCUMENTATION: Quality ID # 436: Final reports with documentation of one or more dose reduction techniques (e.g., Automated exposure control, adjustment of the mA and/or kV according to patient size, use of iterative reconstruction technique) copyright 2010 [employer]- All Rights Reserved Assessment & Plan - Plan Summary Plan Summary: pt admitted with incrased nausea and vomiting over last [address] c/w sbo pt admits to eating popcorn ct c/w sbo at j-j anastomois this am pt feels sl better after hydration no further nausea, vomiting labs reviwed, wnl ct reviewed pt is 6wks post whipple for pancreatic cancer she is also s/p a gastric bypass years ago plan- cont conservative management for now if no resolution in 36-48hrs, may need to consider surgery
[2018-11-20] MEDS: INSULIN LISPRO 100 UNIT/ML 3 ML VIAL SUBCUT SCH ×4 (09:05→21:50)
[2018-11-20] MEDS ORDERED: POTASSI CL 20 MEQ/1/2NS 1L 1000 ML IV PRN (12:34)
[2018-11-20] MEDS: POTASSI CL 20 MEQ/D5-1/2NS 1L 1000 ML IV PRN ×2 (14:01→22:00)
[2018-11-21] MEDS: HYDROMORPHONE HCL INJ/PF 2 MG/ML AMPULE IV PRN ×2 (06:28→14:50)
[2018-11-21] MEDS: POTASSI CL 20 MEQ/D5-1/2NS 1L 1000 ML IV PRN ×2 (06:28→14:56)
--- NOTE | 2018-11-21 07:48 | PDOC PROGRESS REPORT ---
Subjective Progress Note for:: 11/21/18 Subjective:: feels better, passed bm last night min abd pain Reason For Visit: NAUSEA,VOMITING,HYPOTENSION Physical Exam Vital Signs: Temp Pulse Resp BP Pulse Ox 98.8 F 93 16 93/47 L 97 11/20/18 23:53 11/20/18 23:53 11/20/18 23:53 11/20/18 23:53 11/20/18 23:53 Intake & Output 11/20/18 11/21/18 11/22/18 06:59 06:59 06:59 Intake Total 1544 2998 Output Total 1425 2580 Balance 119 418 Weight 67 kg 67 kg General appearance: PRESENT: no acute distress Head exam: PRESENT: normocephalic Eye exam: PRESENT: EOMI Ear exam: PRESENT: normal external ear exam Mouth exam: PRESENT: moist, neck supple Neck exam: PRESENT: full ROM Respiratory exam: PRESENT: clear to auscultation valarie Cardiovascular exam: PRESENT: RRR Pulses: PRESENT: normal radial pulses, normal femoral pulses Vascular exam: PRESENT: normal capillary refill GI/Abdominal exam: PRESENT: normal bowel sounds, soft Rectal exam: PRESENT: deferred Extremities exam: PRESENT: full ROM Musculoskeletal exam: PRESENT: full ROM Neurological exam: PRESENT: alert, awake, oriented to person, oriented to place Psychiatric exam: PRESENT: appropriate affect Skin exam: PRESENT: dry Results Laboratory Results: 11/20/18 06:18 11/20/18 06:18 Impressions: Chest X-Ray 11/19/18 00:00 IMPRESSION: No acute cardiopulmonary process copyright 2010 [employer] All Rights Reserved Abdomen/Pelvis CT 11/20/18 00:00 IMPRESSION: Postsurgical changes, as above with a subjective areas of jejunal wall thickening near anastomosis in the left mid abdomen. Small amount of free fluid. Pneumobilia which is likely iatrogenic. Fatty infiltrative change to the liver. Nonobstructing right renal calculus. TECHNICAL DOCUMENTATION: Quality ID # 436: Final reports with documentation of one or more dose reduction techniques (e.g., Automated exposure control, adjustment of the mA and/or kV according to patient size, use of iterative reconstruction technique) copyright 2010 [employer] All Rights Reserved Assessment & Plan - Plan Summary Plan Summary: feels better after bm last night still some burping wants to try liquids plan - will start clear liquids cont to monitor.
[2018-11-21] MEDS: INSULIN LISPRO 100 UNIT/ML 3 ML VIAL SUBCUT SCH ×4 (08:10→21:41)
[2018-11-21] MEDS: ONDANSETRON HCL INJ/PF 4 MG/2 ML SDV IV PRN ×2 (14:50→23:37)
[2018-11-21] MEDS ORDERED: NORMAL SALINE 1000 ML 1,000 ML IV ONE (16:00)
[2018-11-21] MEDS: ENOXAPARIN SODIUM INJ 40 MG/0.4 ML DISP.SYRIN SUBCUT SCH (18:30)
[2018-11-22] MEDS: POTASSI CL 20 MEQ/D5-1/2NS 1L 1000 ML IV PRN ×3 (00:57→18:58)
[2018-11-22] MEDS: INSULIN LISPRO 100 UNIT/ML 3 ML VIAL SUBCUT SCH ×4 (08:00→22:40)
--- NOTE | 2018-11-22 08:16 | PDOC PROGRESS REPORT ---
Subjective Progress Note for:: 11/22/18 Subjective:: feels better, had another bm Reason For Visit: NAUSEA,VOMITING,HYPOTENSION Physical Exam Vital Signs: Temp Pulse Resp BP Pulse Ox 98.5 F 83 16 94/44 L 96 11/21/18 23:50 11/21/18 23:50 11/21/18 23:50 11/21/18 23:50 11/21/18 23:50 Intake & Output 11/21/18 11/22/18 11/23/18 06:59 06:59 06:59 Intake Total 2998 3600 Output Total 2580 900 Balance 418 2700 Weight 67 kg 67 kg General appearance: PRESENT: no acute distress Head exam: PRESENT: normocephalic Eye exam: PRESENT: conjunctiva pale, EOMI Mouth exam: PRESENT: moist Neck exam: PRESENT: full ROM Respiratory exam: PRESENT: clear to auscultation valarie Cardiovascular exam: PRESENT: RRR Pulses: PRESENT: normal radial pulses, normal femoral pulses Vascular exam: PRESENT: normal capillary refill GI/Abdominal exam: PRESENT: soft Rectal exam: PRESENT: deferred Extremities exam: PRESENT: full ROM Musculoskeletal exam: PRESENT: full ROM Neurological exam: PRESENT: alert, awake, oriented to person, oriented to place Psychiatric exam: PRESENT: appropriate affect Skin exam: PRESENT: dry Results Laboratory Results: 11/20/18 06:18 11/20/18 06:18 Impressions: Chest X-Ray 11/19/18 00:00 IMPRESSION: No acute cardiopulmonary process copyright 2010 [employer]- All Rights Reserved Abdomen/Pelvis CT 11/20/18 00:00 IMPRESSION: Postsurgical changes, as above with a subjective areas of jejunal wall thickening near anastomosis in the left mid abdomen. Small amount of free fluid. Pneumobilia which is likely iatrogenic. Fatty infiltrative change to the liver. Nonobstructing right renal calculus. TECHNICAL DOCUMENTATION: Quality ID # 436: Final reports with documentation of one or more dose reduction techniques (e.g., Automated exposure control, adjustment of the mA and/or kV according to patient size, use of iterative reconstruction technique) copyright 2010 [employer]- All Rights Reserved Assessment & Plan - Plan Summary Plan Summary: feels a bit better passed another bm still burping. abd soft, will repeat kub if dilation is resolved or ct contrast has progressed through prox small bowel, then will obtain a small bowel series will check labs this am remove rankin.
[2018-11-22] MEDS: ONDANSETRON HCL INJ/PF 4 MG/2 ML SDV IV PRN (08:32)
--- NOTE | 2018-11-22 09:25 | RADIOLOGY REPORT (SQ) ---
EXAM DESCRIPTION: KUB/ABDOMEN (SINGLE VIEW) COMPLETED DATE/TIME: 11/22/2018 8:51 am REASON FOR STUDY: f/u sbo COMPARISON: None. NUMBER OF VIEWS: One view. TECHNIQUE: Supine radiographic image of the abdomen acquired. LIMITATIONS: None. FINDINGS: BOWEL GAS PATTERN: Normal bowel gas pattern. No dilated loops. CALCIFICATIONS: No suspicious calcifications. SOFT TISSUES: No gross mass or suggestion of organomegaly. HARDWARE: Multiple clips and anastomosis. Jejunostomy tube right lower quadrant. BONES: No bone lesions or fracture. OTHER: No other significant finding. IMPRESSION: No evidence of obstruction. Reading location - IP/workstation name: [email or web address]
[2018-11-22] MEDS: ENOXAPARIN SODIUM INJ 40 MG/0.4 ML DISP.SYRIN SUBCUT SCH (10:19)
[2018-11-22 11:29] LABS: ABSOLUTE EOSINOPHILS # (AUTO) 0.1 10^3/uL (0.0-0.6); ABSOLUTE LYMPHOCYTES (AUTO) 1.7 10^3/uL (0.5-4.7); ABSOLUTE MONOCYTES (AUTO) 0.5 10^3/uL (0.1-1.4); ABSOLUTE NEUT (AUTO) 3.4 10^3/uL (1.7-8.2); BASOPHILS % (AUTO) 0.3 % (0-2); EOSINOPHILS % (AUTO) 1.1 % (0-6); HEMATOCRIT 25.8 % (36.0-47.0); HEMOGLOBIN 8.5 g/dL (12.0-15.5); LYMPHOCYTES % (AUTO) 29.7 % (13-45); MEAN CORPUSCULAR HEMOGLOBIN 30.7 pg (27.0-33.4); MEAN CORPUSCULAR VOLUME 93 fl (80-97); MONOCYTES % (AUTO) 9.4 % (3-13); PLATELET COUNT 162 10^3/uL (150-450); RED BLOOD COUNT 2.77 10^6/uL (3.72-5.28); RED CELL DISTRIBUTION WIDTH 16.1 % (11.5-14.0); SEGMENTED NEUTROPHILS % (AUTO) 59.5 % (42-78); TOTAL CELLS COUNTED % (AUTO) 100 %; WHITE BLOOD COUNT 5.8 10^3/uL (4.0-10.5)
[2018-11-22 11:48] LABS: BLOOD UREA NITROGEN 5 mg/dL (7-20); CARBON DIOXIDE 26 mmol/L (22-30); CHLORIDE 108 mmol/L (98-107); GLUCOSE 147 mg/dL (75-110); POTASSIUM 4.4 mmol/L (3.6-5.0)
[2018-11-22 11:53] LABS: SODIUM 138.2 mmol/L (137-145)
[2018-11-22 11:55] LABS: ANION GAP 4 (5-19)
[2018-11-22 11:57] LABS: CALCIUM 6.9 mg/dL (8.4-10.2)
[2018-11-23] MEDS: POTASSI CL 20 MEQ/D5-1/2NS 1L 1000 ML IV PRN ×3 (04:36→21:55)
--- NOTE | 2018-11-23 08:00 | PDOC PROGRESS REPORT ---
Subjective Progress Note for:: 11/23/18 Reason For Visit: NAUSEA,VOMITING,HYPOTENSION feels better passing stool no further burping abd soft, non tender Physical Exam Vital Signs: Temp Pulse Resp BP Pulse Ox 98.3 F 85 17 104/58 L 99 11/22/18 23:11 11/22/18 23:11 11/22/18 23:11 11/23/18 00:42 11/22/18 23:11 Intake & Output 11/22/18 11/23/18 11/24/18 06:59 06:59 06:59 Intake Total 3600 4518 Output Total 900 550 Balance 2700 3968 Weight 67 kg 69.1 kg General appearance: PRESENT: no acute distress Head exam: PRESENT: normocephalic Eye exam: PRESENT: EOMI Mouth exam: PRESENT: moist Neck exam: PRESENT: full ROM Respiratory exam: PRESENT: clear to auscultation valarie Cardiovascular exam: PRESENT: RRR Pulses: PRESENT: normal femoral pulses, normal dorsalis pedis pul GI/Abdominal exam: PRESENT: soft Rectal exam: PRESENT: deferred Extremities exam: PRESENT: full ROM Musculoskeletal exam: PRESENT: full ROM Neurological exam: PRESENT: alert, oriented to place Results Laboratory Results: 11/22/18 08:17 11/22/18 08:17 11/22/18 11/22/18 08:17 08:17 WBC 5.8 RBC 2.77 L Hgb 8.5 L Hct 25.8 L MCV 93 MCH 30.7 MCHC 33.0 RDW 16.1 H Plt Count 162 Seg Neutrophils % 59.5 Lymphocytes % 29.7 Monocytes % 9.4 Eosinophils % 1.1 Basophils % 0.3 Absolute Neutrophils 3.4 Absolute Lymphocytes 1.7 Absolute Monocytes 0.5 Absolute Eosinophils 0.1 Absolute Basophils 0.0 Sodium 138.2 Potassium 4.4 Chloride 108 H Carbon Dioxide 26 Anion Gap 4 L BUN 5 L Creatinine 0.48 L Est GFR ( Amer) > 60 Est GFR (Non-Af Amer) > 60 Glucose 147 H Calcium 6.9 L* 11/20/18 00:35 Cagle Catheter Urine Culture - Final NO GROWTH 2 DAYS Impressions: Chest X-Ray 11/19/18 00:00 IMPRESSION: No acute cardiopulmonary process copyright 2011 [employer]- All Rights Reserved Abdomen/Pelvis CT 11/20/18 00:00 IMPRESSION: Postsurgical changes, as above with a subjective areas of jejunal wall thickening near anastomosis in the left mid abdomen. Small amount of free fluid. Pneumobilia which is likely iatrogenic. Fatty infiltrative change to the liver. Nonobstructing right renal calculus. TECHNICAL DOCUMENTATION: Quality ID # 436: Final reports with documentation of one or more dose reduction techniques (e.g., Automated exposure control, adjustment of the mA and/or kV according to patient size, use of iterative reconstruction technique) copyright 2011 [employer]- All Rights Reserved KUB X-Ray 11/22/18 00:00 IMPRESSION: No evidence of obstruction. Assessment & Plan - Plan Summary Plan Summary: resolving sbo will start full liquids
[2018-11-23] MEDS ORDERED: BISACODYL 10 MG SUPP.RECT PR ONE (09:00)
[2018-11-23] MEDS: INSULIN LISPRO 100 UNIT/ML 3 ML VIAL SUBCUT SCH ×4 (09:11→21:51)
[2018-11-23] MEDS: ENOXAPARIN SODIUM INJ 40 MG/0.4 ML DISP.SYRIN SUBCUT SCH (09:39)
[2018-11-23] MEDS: ONDANSETRON HCL INJ/PF 4 MG/2 ML SDV IV PRN ×2 (12:45→21:55)
[2018-11-23] MEDS: PROMETHAZINE HCL INJ 25 MG/1 ML VIAL IV PRN (16:21)
[2018-11-24] MEDS: POTASSI CL 20 MEQ/D5-1/2NS 1L 1000 ML IV PRN ×3 (05:53→23:17)
[2018-11-24] MEDS: ONDANSETRON HCL INJ/PF 4 MG/2 ML SDV IV PRN (07:49)
[2018-11-24] MEDS: INSULIN LISPRO 100 UNIT/ML 3 ML VIAL SUBCUT SCH ×5 (07:50→21:23)
--- NOTE | 2018-11-24 09:46 | PDOC PROGRESS REPORT ---
Subjective Progress Note for:: 11/24/18 Subjective:: feels ok, but vomited last night passing watery stools Reason For Visit: NAUSEA,VOMITING,HYPOTENSION Physical Exam Vital Signs: Temp Pulse Resp BP Pulse Ox 97.9 F 78 18 109/63 100 11/24/18 08:00 11/24/18 08:00 11/24/18 08:00 11/24/18 08:00 11/24/18 08:00 Intake & Output 11/23/18 11/24/18 11/25/18 06:59 06:59 06:59 Intake Total 4518 3643 Output Total 550 350 Balance 3968 3293 Weight 69.1 kg 71.2 kg General appearance: PRESENT: no acute distress Eye exam: PRESENT: EOMI Ear exam: PRESENT: normal external ear exam Mouth exam: PRESENT: moist Neck exam: PRESENT: full ROM Respiratory exam: PRESENT: clear to auscultation valarie Cardiovascular exam: PRESENT: RRR Pulses: PRESENT: normal radial pulses, normal femoral pulses GI/Abdominal exam: PRESENT: normal bowel sounds, soft Rectal exam: PRESENT: deferred Musculoskeletal exam: PRESENT: full ROM Neurological exam: PRESENT: alert, awake, oriented to person Psychiatric exam: PRESENT: appropriate affect Skin exam: PRESENT: dry Results Laboratory Results: 11/22/18 08:17 11/22/18 08:17 Impressions: Chest X-Ray 11/19/18 00:00 IMPRESSION: No acute cardiopulmonary process copyright 2010 [employer]- All Rights Reserved Abdomen/Pelvis CT 11/20/18 00:00 IMPRESSION: Postsurgical changes, as above with a subjective areas of jejunal wall thickening near anastomosis in the left mid abdomen. Small amount of free fluid. Pneumobilia which is likely iatrogenic. Fatty infiltrative change to the liver. Nonobstructing right renal calculus. TECHNICAL DOCUMENTATION: Quality ID # 436: Final reports with documentation of one or more dose reduction techniques (e.g., Automated exposure control, adjustment of the mA and/or kV according to patient size, use of iterative reconstruction technique) copyright 2010 [employer]- All Rights Reserved KUB X-Ray 11/22/18 00:00 IMPRESSION: No evidence of obstruction. Assessment & Plan - Plan Summary Plan Summary: feels ok, still with intermitted vomiting, nausea, however dwight some full liquids no abd pain will obtain small bowel series on monday.
[2018-11-24] MEDS: ENOXAPARIN SODIUM INJ 40 MG/0.4 ML DISP.SYRIN SUBCUT SCH (11:23)
[2018-11-24] MEDS: PROMETHAZINE HCL INJ 25 MG/1 ML VIAL IV PRN (11:28)
[2018-11-25] MEDS: POTASSI CL 20 MEQ/D5-1/2NS 1L 1000 ML IV PRN ×2 (07:01→15:52)
[2018-11-25] MEDS: PROMETHAZINE HCL INJ 25 MG/1 ML VIAL IV PRN ×2 (09:32→17:43)
--- NOTE | 2018-11-25 09:34 | PDOC PROGRESS REPORT ---
Subjective Progress Note for:: 11/25/18 Subjective:: feels ok, no vomiting passed some flatus, no bm Reason For Visit: NAUSEA,VOMITING,HYPOTENSION Physical Exam Vital Signs: Temp Pulse Resp BP Pulse Ox 97.8 F 79 15 110/63 99 11/25/18 08:00 11/25/18 08:00 11/25/18 08:00 11/25/18 08:00 11/25/18 08:00 Intake & Output 11/24/18 11/25/18 11/26/18 06:59 06:59 06:59 Intake Total 3643 2690 967 Output Total 350 2550 Balance 3293 140 967 Weight 71.2 kg 73.8 kg General appearance: PRESENT: no acute distress Head exam: PRESENT: normocephalic Eye exam: PRESENT: EOMI Mouth exam: PRESENT: moist Neck exam: PRESENT: full ROM Respiratory exam: PRESENT: clear to auscultation valarie Cardiovascular exam: PRESENT: RRR Pulses: PRESENT: normal radial pulses, normal femoral pulses Vascular exam: PRESENT: normal capillary refill GI/Abdominal exam: PRESENT: normal bowel sounds, soft Rectal exam: PRESENT: deferred Extremities exam: PRESENT: full ROM Musculoskeletal exam: PRESENT: full ROM Neurological exam: PRESENT: alert, awake, oriented to person Psychiatric exam: PRESENT: anxious Skin exam: PRESENT: dry Results Laboratory Results: 11/22/18 08:17 11/22/18 08:17 11/20/18 00:35 Blood Blood Culture - Final NO GROWTH IN 5 DAYS 11/19/18 22:29 Blood Blood Culture - Final NO GROWTH IN 5 DAYS Impressions: Chest X-Ray 11/19/18 00:00 IMPRESSION: No acute cardiopulmonary process copyright 2011 [employer]- All Rights Reserved Abdomen/Pelvis CT 11/20/18 00:00 IMPRESSION: Postsurgical changes, as above with a subjective areas of jejunal wall thickening near anastomosis in the left mid abdomen. Small amount of free fluid. Pneumobilia which is likely iatrogenic. Fatty infiltrative change to the liver. Nonobstructing right renal calculus. TECHNICAL DOCUMENTATION: Quality ID # 436: Final reports with documentation of one or more dose reduction techniques (e.g., Automated exposure control, adjustment of the mA and/or kV according to patient size, use of iterative reconstruction technique) copyright 2011 [employer]- All Rights Reserved KUB X-Ray 11/22/18 00:00 IMPRESSION: No evidence of obstruction. Assessment & Plan - Plan Summary Plan Summary: feels ok still iw intermittent nausea will obtain small bowel series in am
[2018-11-25] MEDS: INSULIN LISPRO 100 UNIT/ML 3 ML VIAL SUBCUT SCH ×4 (09:53→21:46)
[2018-11-25] MEDS: ENOXAPARIN SODIUM INJ 40 MG/0.4 ML DISP.SYRIN SUBCUT SCH (10:52)
[2018-11-26] MEDS: POTASSI CL 20 MEQ/D5-1/2NS 1L 1000 ML IV PRN ×3 (00:55→22:01)
[2018-11-26 07:25] LABS: BLOOD UREA NITROGEN 3 mg/dL (7-20); CALCIUM 7.3 mg/dL (8.4-10.2); GLUCOSE 181 mg/dL (75-110); POTASSIUM 4.8 mmol/L (3.6-5.0)
[2018-11-26 07:30] LABS: ANION GAP 5 (5-19); CARBON DIOXIDE 24 mmol/L (22-30); CHLORIDE 107 mmol/L (98-107); SODIUM 135.6 mmol/L (137-145)
[2018-11-26] MEDS: INSULIN LISPRO 100 UNIT/ML 3 ML VIAL SUBCUT SCH ×4 (07:44→22:00)
[2018-11-26] MEDS: PROMETHAZINE HCL INJ 25 MG/1 ML VIAL IV PRN (07:50)
[2018-11-26] MEDS: ENOXAPARIN SODIUM INJ 40 MG/0.4 ML DISP.SYRIN SUBCUT SCH (10:35)
[2018-11-26] MEDS: ONDANSETRON HCL INJ/PF 4 MG/2 ML SDV IV PRN (11:00)
--- NOTE | 2018-11-26 15:35 | RADIOLOGY REPORT (SQ) ---
EXAM DESCRIPTION: SMALL BOWEL SERIES COMPLETED DATE/TIME: 11/26/2018 12:20 pm REASON FOR STUDY: r/o sbo please use gastrografin. COMPARISON: None. FLUOROSCOPY TIME: No fluoro 5 images saved to PACS. LIMITATIONS: None. PROCEDURE: Initial lan support specialist image of abdomen acquired, followed by administration of water-soluble oral contrast. Serial radiographic images acquired. Fluoroscopic images recorded of the terminal ileum and other indicated areas. All images stored on PACS. FINDINGS: DIRECTOR DERMATOLOGY KUB: Non-obstructive bowel pattern. No abnormal calcifications. Soft tissue planes normal. Indwelling J-tube identified STOMACH: No significant reflux. Surgical changes consistent with gastric bypass. DUODENUM: Status post Whipple procedure. JEJUNUM: Normal mucosal pattern. No dilatation, segmentation, strictures or masses. ILEUM: Normal mucosal pattern. No dilatation, segmentation, strictures or masses. TERMINAL ILEUM AND ILEO-CECAL VALVE: Normal mucosal pattern without "cobble-stoning" or stricture. PROXIMAL COLON: Incompletely imaged. No abnormality. OTHER: Rapid small bowel transit time, with contrast seen in the colon on the 15 minutes film. IMPRESSION: NO RADIOGRAPHIC EVIDENCE FOR SMALL BOWEL OBSTRUCTION. COMMENT: NONE Quality ID 145: Final reports for procedures using fluoroscopy that document radiation exposure michelle melchor, or exposure time and number of fluorographic images (if radiation exposure indices are not avail able) TECHNICAL DOCUMENTATION: JOB ID: [id number] [employer]- All Rights Reserved Reading location - IP/workstation name: [email or web address]
[2018-11-27] MEDS: POTASSI CL 20 MEQ/D5-1/2NS 1L 1000 ML IV PRN (05:42)
[2018-11-27] MEDS: INSULIN LISPRO 100 UNIT/ML 3 ML VIAL SUBCUT SCH ×2 (07:21→11:52)
--- NOTE | 2018-11-27 08:46 | PDOC PROGRESS REPORT ---
Subjective Progress Note for:: 11/27/18 Subjective:: feels well passsing bm's no nausea Reason For Visit: NAUSEA,VOMITING,HYPOTENSION Physical Exam Vital Signs: Temp Pulse Resp BP Pulse Ox 97.9 F 84 17 106/59 L 99 11/26/18 23:22 11/26/18 23:22 11/26/18 23:22 11/26/18 23:22 11/26/18 23:22 Intake & Output 11/26/18 11/27/18 11/28/18 06:59 06:59 06:59 Intake Total 3937 4066 Output Total 3400 425 Balance 537 3641 Weight 75.2 kg General appearance: PRESENT: no acute distress Eye exam: PRESENT: EOMI Ear exam: PRESENT: normal external ear exam Mouth exam: PRESENT: moist Neck exam: PRESENT: full ROM Respiratory exam: PRESENT: clear to auscultation valarie Cardiovascular exam: PRESENT: RRR Pulses: PRESENT: normal radial pulses, normal femoral pulses Vascular exam: PRESENT: normal capillary refill GI/Abdominal exam: PRESENT: soft Rectal exam: PRESENT: deferred Extremities exam: PRESENT: full ROM Musculoskeletal exam: PRESENT: full ROM Neurological exam: PRESENT: alert, awake, oriented to person, oriented to place Psychiatric exam: PRESENT: appropriate affect Skin exam: PRESENT: dry Results Laboratory Results: 11/22/18 08:17 11/26/18 05:37 Impressions: Chest X-Ray 11/19/18 00:00 IMPRESSION: No acute cardiopulmonary process copyright 2010 [employer]- All Rights Reserved Abdomen/Pelvis CT 11/20/18 00:00 IMPRESSION: Postsurgical changes, as above with a subjective areas of jejunal wall thickening near anastomosis in the left mid abdomen. Small amount of free fluid. Pneumobilia which is likely iatrogenic. Fatty infiltrative change to the liver. Nonobstructing right renal calculus. TECHNICAL DOCUMENTATION: Quality ID # 436: Final reports with documentation of one or more dose reduction techniques (e.g., Automated exposure control, adjustment of the mA and/or kV according to patient size, use of iterative reconstruction technique) copyright 2010 [employer]- All Rights Reserved KUB X-Ray 11/22/18 00:00 IMPRESSION: No evidence of obstruction. Small Bowel X-Ray 11/26/18 00:00 IMPRESSION: NO RADIOGRAPHIC EVIDENCE FOR SMALL BOWEL OBSTRUCTION. Assessment & Plan - Plan Summary Plan Summary: doing well small bowel series yesterday neg for sbo no dwight full liquids will dc home today pt will f/u with Dr. Harrison and with me.
--- NOTE | 2018-11-27 09:14 | DISCHARGE SUMMARY E ---
Discharge Summary NAME: NARGIS MELENDREZ : 1950 AGE: 68Y ADMITTED: 11/19/2018 DISCHARGED: 11/27/2018 ADMISSION DIAGNOSIS: Small bowel obstruction. DISCHARGE DIAGNOSIS: Small bowel obstruction. OPERATIONS AND PROCEDURES: Small bowel series and abdominal CT scan. REASON FOR HOSPITALIZATION/HOSPITAL COURSE: This is a 68-year-old female who is approximately 6 weeks status post pancreaticoduodenectomy for pancreatic cancer. She had been doing well at home but returned to the emergency room the night of admission complaining of increasing nausea and vomiting and abdominal pain. Diagnosis of small bowel obstruction was made on a CT scan obtained in the emergency room and she was admitted for IV fluids and observation. She was monitored in the hospital, initially in the intensive care unit for 2 days because of hypotension which resolved with IV hydration, and then transferred to the floor. On 11/20, the day after admission, she started feeling a bit better. She still had some abdominal cramping but it was improving. On 11/21 she continued to improve. She was transferred to the regular floor. She was continued n.p.o., but she started having bowel movements. We started her on a clear liquid diet. The following day repeat KUB was obtained which showed normal gas pattern with no dilated loops. She was continued on a clear liquid diet. On 11/23 her abdomen was soft and nontender. She was feeling better and passing stool. We started her on a full liquid diet that day. On the in the evening she had some episode of vomiting and, therefore, I ordered a small bowel series to be done on the , which was obtained yesterday, which showed no evidence of obstruction with good flow of the contrast into her colon in a reasonable and normal amount of time. She felt better after the small bowel series. She started having bowel movements and was started on a full liquid diet which was maintained throughout the evening. Today, on Monday, the , she feels well. She is passing bowel movements. There is no more abdominal bloating. She is tolerating a full liquid diet. She will now be discharged home on a full liquid diet for the next day or two at home and instructed to slowly resume a soft diet. She will be discharged home today, 11/27/2018. She has a follow-up appointment with me in 7 to 10 days after discharge and with Dr. Garcia from oncology in consideration of chemoradiation treatment for her pancreatic cancer. She will resume her home medications which include metformin, simvastatin, Zoloft, 1 aspirin a day, Mirapex, Protonix, lisinopril, and vitamin D. No discharge medications are being ordered. FINAL DIAGNOSIS: Small bowel obstruction. DICTATING PHYSICIAN: SULY LOPEZ M.D. [id number] PHY#: [id number] ID: [id number] JOB#: [id number] ACCT: [id number] cc:SULY LOPEZ M.D. >
[2018-11-27] MEDS: ENOXAPARIN SODIUM INJ 40 MG/0.4 ML DISP.SYRIN SUBCUT SCH (09:53)
[2018-11-27 12:46] VITALS: BP 108/77
--- NOTE | 2018-12-17 08:45 | DISCHARGE SUMMARY E ---
Discharge Summary NAME: NARGIS MELENDREZ : 1950 AGE: 68Y ADMITTED: 11/19/2018 DISCHARGED: 11/27/2018 ADDEENDUM FINAL DIAGNOSIS: Small bowel obstruction, incomplete. DICTATING PHYSICIAN: SULY LOPEZ M.D. [id number] PHY#: [id number] ID: [id number] JOB#: [id number] ACCT: [id number] cc:SULY LOPEZ M.D. >
== END 2018-11-27 13:07 | disposition home or self-care (01) | DRG 389 ==
LOC: UNDOADMIN 21:22 → ICU 21:22 → 4N 11-20 18:07 → ICU 11-20 18:07 → UNDODISIN 11-27 13:07
PROVIDERS: ATTEND Surgery
DX: K91.31 Postprocedural partial intestinal obstruction (principal); C25.0 Malignant neoplasm of head of pancreas; E78.5 Hyperlipidemia, unspecified; I10 Essential (primary) hypertension; E11.9 Type 2 diabetes mellitus without complications; K21.9 Gastro-esophageal reflux disease without esophagitis; M19.90 Unspecified osteoarthritis, unspecified site; F32.9 Major depressive disorder, single episode, unspecified; Z90.411 Acquired partial absence of pancreas; Z90.49 Acquired absence of other specified parts of digestive tract; Z98.84 Bariatric surgery status; Z79.899 Other long term (current) drug therapy; Z88.2 Allergy status to sulfonamides; Z88.8 Allergy status to other drugs, medicaments and biological substances
CPT/HCPCS: 36415; 71045; 74018; 74176; 74250; 80048; 80053; 81001; 82150; 82962; 83605; 83690; 83735; 85025; 87040; 87086; J0610; J1170; J1642; J1650; J1815; J2405; J2543; J2550; J3370; J3475; J3480; J3490; J7030; J7050; J7060; J7120

== ENCOUNTER 2018-12-06 19:03 | Emergency (ER) | payer MEDICARE, OTHER ==
[2018-12-06] MEDS ORDERED: MORPHINE SULFATE 10 MG/ML INJ IV ONE ×2 (20:15→22:40)
--- NOTE | 2018-12-06 20:16 | ER Document Report ---
ED Medical Screen (RME) - General Chief Complaint: Leg Pain Stated Complaint: LEG PAIN Time Seen by Provider: 12/06/18 20:10 TRAVEL OUTSIDE OF THE [place] IN LAST 30 DAYS: No - HPI Notes: 12/06/18 20:16 Patient is a 68-year-old female with a history of pancreatic cancer, not currently on chemo or radiation, and DVT to the right proximal femoral vein who presents complaining of right lower anterior leg erythema and small open sore that developed over the past 1-2 days. Patient states that she has a lot of pain associated to this area. The pain does not radiate. Because of the pancreatic cancer, she does have chronic issues with edema to her lower extremities. Her oncologist is Dr. Garcia. She is otherwise eating and drinking without difficulty. She is urinating normally. Denies FELICIANO, fever, neck pain, URI, CP, SOB, dysuria, back pain. I have treated and performed a rapid initial assessment of this patient. A comprehensive ED assessment and evaluation of the patient, analysis of test results and completion of medical decision making process will be conducted by additional ED providers. PHYSICAL EXAMINATION: GENERAL: Well-appearing, well-nourished and in no acute distress. A&Ox4. An swers questions appropriately. LUNGS: Breath sounds clear to auscultation bilaterally and equal. No wheezes rales or rhonchi. HEART: Regular rate and rhythm without murmurs, rubs, gallops. Extremities: 2+ pitting edema b/l LE's. + erythema, warmth, and small open sore appearing lesion to the Rt lower anterior leg. + tenderness associated. NEUROLOGICAL: Normal speech, limping gait. PSYCH: Normal mood, normal affect. - Related Data Allergies/Adverse Reactions: Sulfa (Sulfonamide Antibiotics) Allergy (Mild, Verified 10/22/18 17:38) Generalized rash epinephrine Adverse Reaction (Verified 10/22/18 17:38) Past Medical History - Past Medical History Cardiac Medical History: Reports: Hx Hypercholesterolemia, Hx Hypertension Denies: Hx Atrial Fibrillation, Hx Congestive Heart Failure, Hx Coronary Artery Disease, Hx Heart Attack, Hx Peripheral Vascular Disease, Hx Pulmonary Embolism, Hx Heart Murmur Pulmonary Medical History: Reports: Hx Asthma Denies: Hx Bronchitis, Hx COPD, Hx Pneumonia, Hx Respiratory Failure, Hx Sleep Apnea, Hx Tuberculosis Neurological Medical History: Reports: Hx Cerebrovascular Accident - LEFT EYE DEFICITS. Denies: Hx Seizures Endocrine Medical History: Reports: Hx Diabetes Mellitus Type 2. Denies: Hx Graves' Disease, Hx Hyperthyroidism, Hx Hypothyroidism Renal/ Medical History: Reports: Hx Kidney Stones, Hx Ovarian Cysts, Hx Peritoneal Dialysis. Denies: Hx End Stage Renal Disease, Hx Pelvic Inflammatory Disease Malignancy Medical History: Denies: Hx Breast Cancer, Hx Cervical Cancer, Hx Leukemia, Hx Lung Cancer, Hx Ovarian Cancer GI Medical History: Reports: Hx Gastroesophageal Reflux Disease. Denies: Hx Crohn's Disease, Hx Hepatitis, Hx Hiatal Hernia, Hx Irritable Bowel, Hx Liver Failure, Hx Pancreatitis - PANCREATIC CANCER, Hx Ulcer Musculoskeltal Medical History: Reports Hx Arthritis, Denies Hx Fibromyalgia, Denies Hx Multiple Sclerosis, Denies Hx Muscular Dystrophy, Denies Hx Systemic Lupus Erythematosus Psychiatric Medical History: Reports: Hx Depression Denies: Hx Bipolar Disorder, Hx Dementia, Hx Post Traumatic Stress Disorder, Hx Schizophrenia Traumatic Medical History: Reports: Hx Fractures - LEFT FEMUR Infectious Medical History: Denies: Hx Hepatitis, Hx HIV Past Surgical History: Reports: Hx Appendectomy, Hx Cholecystectomy, Hx Gastric Bypass Surgery, Hx Gynecologic Surgery, Hx Orthopedic Surgery - left femur fx, Hx Tonsillectomy, Hx Tubal Ligation. Denies: Hx Bowel Surgery, Hx Section, Hx Colostomy, Hx Coronary Artery Bypass Graft, Hx Herniorrhaphy, Hx Hysterectomy, Hx Mastectomy, Hx Open Heart Surgery, Hx Pacemaker - Immunizations Hx Diphtheria, Pertussis, Tetanus Vaccination: Yes History of Influenza Vaccine for 04/2017 - 09/2017 Season: Yes Influenza Administration Date for 04/2017 - 09/2017 Season: 04/09/18 Physical Exam - Vital signs Vitals: Temp Pulse Resp BP Pulse Ox 98.1 F 111 H 20 123/79 100 12/06/18 19:28 12/06/18 19:28 12/06/18 19:28 12/06/18 19:28 12/06/18 19:28 Course - Vital Signs Vital signs: Temp Pulse Resp BP Pulse Ox 98.1 F 111 H 20 123/79 100 12/06/18 19:28 12/06/18 19:28 12/06/18 19:28 12/06/18 19:28 12/06/18 19:28
[2018-12-06 21:15] LABS: HEMATOCRIT 29.1 % (36.0-47.0); HEMOGLOBIN 9.7 g/dL (12.0-15.5); MEAN CORPUSCULAR HEMOGLOBIN 30.8 pg (27.0-33.4); MEAN CORPUSCULAR HGB CONC 33.5 g/dL (32.0-36.0); MEAN CORPUSCULAR VOLUME 92 fl (80-97); PLATELET COUNT 157 10^3/uL (150-450); RED BLOOD COUNT 3.17 10^6/uL (3.72-5.28); RED CELL DISTRIBUTION WIDTH 16.3 % (11.5-14.0); WHITE BLOOD COUNT 8.7 10^3/uL (4.0-10.5)
[2018-12-06 21:25] LABS: ALANINE AMINOTRANSFERASE 87 U/L (9-52); ALBUMIN 2.2 g/dL (3.5-5.0); ALKALINE PHOSPHATASE 622 U/L (38-126); ANION GAP 10 (5-19); ASPARTATE AMINO TRANSFERASE 85 U/L (14-36); BILIRUBIN,DIRECT 4.7 mg/dL (0.0-0.4); BILIRUBIN,TOTAL 5.7 mg/dL (0.2-1.3); BLOOD UREA NITROGEN 10 mg/dL (7-20); CARBON DIOXIDE 24 mmol/L (22-30); CHLORIDE 101 mmol/L (98-107); GLUCOSE 157 mg/dL (75-110); POTASSIUM 3.8 mmol/L (3.6-5.0); SODIUM 134.6 mmol/L (137-145); TOTAL PROTEIN 5.4 g/dL (6.3-8.2)
[2018-12-06 21:31] LABS: ABSOLUTE MONOCYTES # (MANUAL) 0.3 10^3/uL (0.1-1.4); ABSOLUTE NEUTROPHILS# (MANUAL) 7.4 10^3/uL (1.7-8.2); BASOPHILS % (MANUAL) 0 % (0-2); EOSINOPHILS % (MANUAL) 0 % (0-6); LYMPHOCYTES % (MANUAL) 12 % (13-45); MONOCYTES % (MANUAL) 3 % (3-13); SEGMENTED NEUTROPHILS % (MAN) 85 % (42-78); TOTAL CELLS COUNTED 100
[2018-12-06 21:32] LABS: ANISOCYTOSIS 1+; OVALOCYTES SLIGHT; POIKILOCYTOSIS 1+; POLYCHROMASIA SLIGHT; TEAR DROP CELLS SLIGHT
[2018-12-06 21:33] LABS: PLATELET COMMENT ADEQUATE
--- NOTE | 2018-12-07 01:28 | RADIOLOGY REPORT (SQ) ---
EXAM DESCRIPTION: CT ABDOMEN PELVIS WITH IV CONTRAST COMPLETED DATE/TME: 12/07/2018 00:00 CLINICAL HISTORY: 68 years Female recent surgery, elevate bili, pain COMPARISON: 11/20/2018. TECHNIQUE: Contiguous axial images obtained through the abdomen and pelvis following IV contrast. Reformatted images obtained. This exam was performed according to our department optimization program which includes automated exposure control, adjustment of the mA and/or kv according to patient size and/or use of iterative reconstruction technique. FINDINGS: Fatty infiltration of the liver. There is subcutaneous edema over the lower chest abdomen and pelvis. There is free fluid in the abdomen and pelvis. The spleen and pancreas appear unremarkable. No adrenal masses. No acute abnormality of the kidneys. Nonobstructing right renal stone. There is a jejunal catheter in place. The gallbladder is surgically absent. There is a small amount of pneumobilia which was present on the patient's previous examination. No fluid collection is noted in the gallbladder fossa. No aneurysmal dilatation of the aorta. No bowel obstruction. The appendix is nonvisualized and presumed surgically absent.. IMPRESSION: Fatty infiltration the liver Persistent pneumobilia Free fluid in the abdomen and pelvis as well as subcutaneous edema over the abdomen and pelvis Jejunal catheter in place in unchanged position Nonobstructing right renal stone
[2018-12-07] MEDS ORDERED: VANCOMYCIN HCL INJ 1000 MG VIAL IV ONE (01:55)
--- NOTE | 2018-12-07 03:21 | RADIOLOGY REPORT (SQ) ---
EXAM: Ultrasound abdomen limited CLINICAL DATA: 68-year-old female with right upper quadrant pain. TECHNICAL DATA: Limited sonographic imaging of the right upper quadrant was performed on 12/07/2018 at 2:51 AM. Comparison: CT abdomen and pelvis performed on 12/07/2018 at 1:05 AM. FINDINGS: The liver is normal in size and configuration. The liver demonstrates increased echogenicity which is commonly seen with fatty infiltration. No focal hepatic abnormalities are identified. Doppler imaging reveals patency of the portal vein and normal hepatopedal flow. The gallbladder is surgically absent. There is no evidence of biliary ductal dilatation. The common bile duct measures 3 mm in diameter. The right kidney is normal in size, shape and echogenicity without hydronephrosis or definite nephrolithiasis. The right kidney measures 9.7 cm in length. There is a trace amount of free fluid in the right upper quadrant. The pancreas is not well visualized due to adjacent bowel gas. The aorta is normal in caliber and contour and tapers distally. IMPRESSION: 1. Fatty infiltration of the liver. 2. Remote cholecystectomy. 3. Trace amount of free fluid in the right upper quadrant. 4. Moderate amount of bowel gas obscuring the pancreas.
[2018-12-07 04:16] LABS: LIPASE < 10.0 U/L (23-300)
--- NOTE | 2018-12-07 04:25 | ER Document Report ---
ED General - General TRAVEL OUTSIDE OF THE [place] IN LAST 30 DAYS: No <KEVINDARY MILLERBERNY - Last Filed: 12/07/18 08:23> <MIKYEMERSON Darrin - Last Filed: 12/07/18 13:15> - General Chief Complaint: Leg Pain Stated Complaint: LEG PAIN Time Seen by Provider: 12/06/18 20:10 Notes: RME provider note Patient is a 68-year-old female with a history of pancreatic cancer, not currently on chemo or radiation, and DVT to the right proximal femoral vein who presents complaining of right lower anterior leg erythema and small open sore that developed over the past 1-2 days. Patient states that she has a lot of pain associated to this area. The pain does not radiate. Because of the panc reatic cancer, she does have chronic issues with edema to her lower extremities. Her oncologist is Dr. Garcia. She is otherwise eating and drinking without difficulty. She is urinating normally. Denies FELICIANO, fever, neck pain, URI, CP, SOB, dysuria, back pain. My patient HPI: Patient is a 68-year-old female presents to the emergency department with a wound to her right lower leg. Patient states she noticed a small scratch on her right lower extremity earlier this morning. States the redness and swelling has since increased which is why she presents to the emergency room. Patient's denying any fever, abdominal pain, nausea, vomiting. Patient is a pancreatic cancer patient had a Whipple procedure at the beginning of October at this facility by Surgeon Dr. Flores. Patient is a oncology patient of Dr. Fine. Pts last chemo was in August. Surgical history: Cholecystectomy, Whipple procedure, gastric bypass (ASIYA JOHNSON) - Related Data Allergies/Adverse Reactions: Sulfa (Sulfonamide Antibiotics) Allergy (Mild, Verified 10/22/18 17:38) Generalized rash epinephrine Adverse Reaction (Verified 10/22/18 17:38) Past Medical History - General Information source: Patient - Social History Smoking Status: Never Smoker Frequency of alcohol use: None Drug Abuse: None Family History: Reviewed & Not Pertinent Patient has suicidal ideation: No Patient has homicidal ideation: No - Past Medical History Cardiac Medical History: Reports: Hx Hypercholesterolemia, Hx Hypertension Denies: Hx Atrial Fibrillation, Hx Congestive Heart Failure, Hx Coronary Artery Disease, Hx Heart Attack, Hx Peripheral Vascular Disease, Hx Pulmonary Embolism, Hx Heart Murmur Pulmonary Medical History: Reports: Hx Asthma Denies: Hx Bronchitis, Hx COPD, Hx Pneumonia, Hx Respiratory Failure, Hx Sleep Apnea, Hx Tuberculosis Neurological Medical History: Reports: Hx Cerebrovascular Accident - LEFT EYE DEFICITS. Denies: Hx Seizures Endocrine Medical History: Reports: Hx Diabetes Mellitus Type 2. Denies: Hx Graves' Disease, Hx Hyperthyroidism, Hx Hypothyroidism Renal/ Medical History: Reports: Hx Kidney Stones, Hx Ovarian Cysts, Hx Peritoneal Dialysis. Denies: Hx End Stage Renal Disease, Hx Pelvic Inflammatory Disease Malignancy Medical History: Denies: Hx Breast Cancer, Hx Cervical Cancer, Hx Leukemia, Hx Lung Cancer, Hx Ovarian Cancer GI Medical History: Reports: Hx Gastroesophageal Reflux Disease. Denies: Hx Crohn's Disease, Hx Hepatitis, Hx Hiatal Hernia, Hx Irritable Bowel, Hx Liver Failure, Hx Pancreatitis - PANCREATIC CANCER, Hx Ulcer Musculoskeletal Medical History: Reports Hx Arthritis, Denies Hx Fibromyalgia, Denies Hx Multiple Sclerosis, Denies Hx Muscular Dystrophy, Denies Hx Systemic Lupus Erythematosus Psychiatric Medical History: Reports: Hx Depression Denies: Hx Bipolar Disorder, Hx Dementia, Hx Post Traumatic Stress Disorder, Hx Schizophrenia Traumatic Medical History: Reports: Hx Fractures - LEFT FEMUR Infectious Medical History: Denies: Hx Hepatitis, Hx HIV Past Surgical History: Reports: Hx Appendectomy, Hx Cholecystectomy, Hx Gastric Bypass Surgery, Hx Gynecologic Surgery, Hx Orthopedic Surgery - left femur fx, Hx Tonsillectomy, Hx Tubal Ligation. Denies: Hx Bowel Surgery, Hx Section, Hx Colostomy, Hx Coronary Artery Bypass Graft, Hx Herniorrhaphy, Hx Hysterectomy, Hx Mastectomy, Hx Open Heart Surgery, Hx Pacemaker - Immunizations Hx Diphtheria, Pertussis, Tetanus Vaccination: Yes Hx Pneumococcal Vaccination: 04/09/18 <ASIYA JOHNSON - Last Filed: 12/07/18 08:23> Review of Systems - Review of Systems Constitutional: denies: Fever EENT: No symptoms reported Cardiovascular: No symptoms reported Respiratory: No symptoms reported Gastrointestinal: No symptoms reported Genitourinary: No symptoms reported Female Genitourinary: No symptoms reported Musculoskeletal: No symptoms reported Skin: See HPI Hematologic/Lymphatic: No symptoms reported Neurological/Psychological: No symptoms reported <ASIYA JOHNSON - Last Filed: 12/07/18 08:23> Physical Exam <ASIYA JOHNSON - Last Filed: 12/07/18 08:23> - Vital signs Vitals: Temp Pulse Resp BP Pulse Ox 98.1 F 111 H 20 123/79 100 12/06/18 19:28 12/06/18 19:28 12/06/18 19:28 12/06/18 19:28 12/06/18 19:28 - Notes Notes: GENERAL: Alert, interacts well. No acute distress. HEAD: Normocephalic, atraumatic. EYES: Pupils equal, round, and reactive to light. Extraocular movements intact. Scleral icterus noted bilaterally ENT: Oral mucosa moist, tongue midline. NECK: Full range of motion. Supple. Trachea midline. LUNGS: Clear to auscultation bilaterally, no wheezes, rales, or rhonchi. No respiratory distress. HEART: Regular rate and rhythm. No murmur ABDOMEN: Soft, non-tender. Non-distended. Bowel sounds present in all 4 quadrants. No McBurney's point tenderness, no Singh sign noted EXTREMITIES: Moves all 4 extremities spontaneously. No edema, normal radial and dorsalis pedis pulses bilaterally. No cyanosis. BACK: no cervical, thoracic, lumbar midline tenderness. No saddle anesthesia, normal distal neurovascular exam. NEUROLOGICAL: Alert and oriented x3. Normal speech. cranial nerves II through XII grossly intact PSYCH: Normal affect, normal mood. SKIN: Slightly jaundiced, warm, dry, normal turgor. Superficial skin tear noted distal right anterior extremity with surrounding erythema (ASIYA JOHNSON) Course - Laboratory Result Diagrams: 12/06/18 20:45 12/06/18 20:45 <ASIYA JOHNSON - Last Filed: 12/07/18 08:23> - Laboratory Result Diagrams: 12/06/18 20:45 12/06/18 20:45 <EMERSON BOLAÑOS - Last Filed: 12/07/18 13:15> - Re-evaluation Re-evalutation: I discussed this case with my attending Dr. Brice who is suggesting an oral and IV contrasted abdomen CT. PE results show no obstructions. Dr. Brice then suggest a right upper quadrant ultrasound. Ultrasound also shows no obstructions. In discussing this with my attending Dr. Brice suggest transfer to another hospital due to [facility] not having gastroenterology on-call. 12/07/18 04:40 I have discussed this case with hospitalist Dr. Mirian Bach at [facility]. She is requesting an MRCP at this time. Transfer center states they were unable to make contact with gastroenterology so Dr. Bach took the call. MRCP ordered. Discussed with patient possible transfer to [facility] after MRCP results. Patient is requesting more pain medication for her right lower extremity. States she feels as though the redness has somewhat decreased. Patient continues without any abdominal pain. 12/07/18 07:22 I have discussed this case with patient's Surgeon Dr. Flores (who performed the Whipple) who would like to be called back after MRCP. He stated then he would speak with the family about the plan. Stated the pt. should be transferred to [facility] if we do not have Gastro dictaphone transcriber. Dr. Floress # [phone] la 12/07/18 08:16 Dr. Flores has contacted Dr. Maria Esther Dixon at [facility] phone #[phone]. She specializes in Whipple procedure. Dr. Flores is suggested the patient get transferred to [facility] to be under the care of Dr. Dixon. I have discussed this with patient at bedside. Patient agrees with this treatment plan. Awaiting results of MRCP which will then be relayed to Dr. Flores and Dr. Dixon awaiting transport to [facility]. Pt. care and report were transferred to Miky LEAL for continued care. (ASIYA JOHNSON) 12/07/18 08:30 This [place] physician diet assistant I have assumed care of Ms. Valorie Machado from [facility] the nighttime [facility]. She has informed me of patient's plan of care which includes patient receiving an MRCP this morning. She has done the foot work and talk to Dr. Flores who performed her Whipple procedure a couple weeks back who is currently out of town but is actively involved in the case now. I have been in with [facility] to examine the patient and discussed the plan of care with her as well. Both her and her are in agreement with this plan of care. So currently we are waiting for the MRCP to be performed and at that point I will give Dr. Flores and call back with the findings and he is instructed us at that point also to contact a Dr. Maria Esther Dixon at [facility] who Dr. Flores is already talked to about the case. In addition patient's original presenting complaint was a right lower extremity skin tear that apparently may have turned into a cellulitis. Patient was given a gram of Vanco to cover any source of infection in that area as well as any presenting possibilities in the abdominal area. According to [facility]man and patient they do believe the cellulitis has showed some improvement after receiving the vancomycin evening. Patient currently still looks a little jaundiced on physical exam but other than that she is in good spirits. At this time we will continue to monitor patient's progress and follow plan of care. 12/07/18 11:44 Update status report patient's MRCP came back that showed 1. Expected anatomy post Whipple procedure. 2. There is no obvious biliary ductal dilation, obstructing mass, or lesion. Evaluation of the biliary and pancreatic ducts is very limited by the expected postprocedural presence of air, which does not generate a fluid signal for imaging via MRCP, in the setting of prior Whipple procedure. 3. Ascites, anasarca, and pleural effusions. With this information I contacted Dr. Flores and informed him of those findings and he once again reiterated for me to contact Dr. Maria Esther Dixon. I did contact Dr. Dixon the first time and informed her of the findings and she was more than happy to accept patient at [facility]. I then contacted the transfer center and was informed that Dr. Dixon had accepted her with them as well and they would be waiting for a bed. I was informed on the second callback from the transfer center that it would be anywhere from 24 to 48 hours before bed will become available. I did contact Dr. Dixon one last time to find out if patient could eat over the next 12 to 24 hours and as long as patient has no fever is not vomiting and is handling fluids okay since she can have a regular diet. I then returned a call to Dr. Flores at his request to inform him that Dr. Dixon had accepted the patient and that we are waiting on a bed which could be from 24 to 48 hours out per he informed me that he would be leaving [place] sometime today and would be a long flight back so he would want us to keep him abreast of any developments in her care. He has indicated that if he could not be reached by his phone to leave a voicemail with any pertinent or relevant information. Currently patient is awake alert and oriented and is still pain- free and is having no troubles at this time. 12/07/18 12:20 Update note just after hanging up with Dr. Dixon and please see my last note I was contacted by by [facility] who informed me the patient now has a bed at their hospital it is CCU to 48 and I was given a number to call for report it is [phone]. I have rescinded patient's diet order at this time since she will be going down there soon as we can arrange transfer and the surgeon may want to do an ERCP when she gets there but we will let them evaluate her at that time for diet or procedure. I have once again contacted Dr. Xiomara saez and informed him of patient being transferred out today. (EMERSON BOLAÑOS) - Vital Signs Vital signs: Temp Pulse Resp BP Pulse Ox 97.7 F 103 H 16 107/62 97 12/07/18 06:31 12/07/18 02:48 12/07/18 02:48 12/07/18 06:00 12/07/18 06:01 - Laboratory Laboratory results interpreted by me: 12/06/18 12/06/18 12/06/18 20:45 20:45 20:45 RBC 3.17 L Hgb 9.7 L Hct 29.1 L RDW 16.3 H Seg Neuts % (Manual) 85 H Lymphocytes % (Manual) 12 L Sodium 134.6 L Glucose 157 H Calcium 8.0 L Total Bilirubin 5.7 H Direct Bilirubin 4.7 H AST 85 H ALT 87 H Alkaline Phosphatase 622 H Total Protein 5.4 L Albumin 2.2 L Lipase < 10.0 L Discharge <ASIYA JOHNSON - Last Filed: 12/07/18 08:23> - Discharge Unit Admitted: ICU <EMERSON BOLAÑOS - Last Filed: 12/07/18 13:15> - Discharge Clinical Impression: Abnormal LFTs (liver function tests), Pancreatic adenocarcinoma Postoperative or surgical complication Qualifiers: Encounter type: initial encounter Qualified Code(s): T81.9XXA - Unspecified complication of procedure, initial encounter Condition: Stable Disposition: [facility]
[2018-12-07] MEDS ORDERED: MORPHINE SULFATE 10 MG/ML INJ IV ONE ×2 (04:49→08:25)
[2018-12-07] MEDS ORDERED: NORMAL SALINE 1000 ML 1,000 ML IV ONE (04:50)
--- NOTE | 2018-12-07 10:12 | RADIOLOGY REPORT (SQ) ---
EXAM DESCRIPTION: MRI ABDOMEN WITHOUT COMPLETED DATE/TIME: 12/07/2018 9:46 am REASON FOR STUDY: MRCP COMPARISON: CT abdomen pelvis, abdominal ultrasound, 12/07/2018 TECHNIQUE: Multisequence multiplanar noncontrast MR examination of the abdomen performed. MRCP perf ormed with multiplanar 3D reformats. CONTRAST TYPE AND DOSE: None. RENAL FUNCTION: Not applicable. LIMITATIONS: Breath motion artifact, ascites, pneumobilia FINDINGS: LIVER: Normal size. No masses. No dilated ducts. CBD normal. SPLEEN: Normal size. No focal lesions. PANCREAS: Postoperative findings of Whipple pancreaticoduodenectomy. GALLBLADDER: Surgically absent. BILE AND PANCREACTIC DUCTS: Evaluation of the biliary and pancreatic ducts is very limited by the ex pected postprocedural presence of air in the setting of prior Whipple procedure. ADRENAL GLANDS: No significant masses or asymmetry. RIGHT KIDNEY AND URETER: No masses. No hydronephrosis. LEFT KIDNEY AND URETER: No masses. No hydronephrosis. AORTA AND VESSELS: No aneurysm. No dissection. Renal arteries, SMA, celiac without stenosis. RETROPERITONEUM: No retroperitoneal adenopathy, hemorrhage or masses. BOWEL: No visualized masses. No inflammation. No significant dilatation. ABDOMINAL WALL AND PERITONEUM: No hernias. Small volume ascites. Anasarca. BONES: No acute or significant findings. OTHER: Trace pleural effusions. IMPRESSION: 1. Expected anatomy status post Whipple procedure. The gallbladder is surgically absent . 2. There is no obvious biliary ductal dilation, obstructing mass, or lesion. Evaluation of the bili abel and pancreatic ducts is very limited by the expected postprocedural presence of air, which does n ot generate a fluid signal for imaging via MRCP, in the setting of prior Whipple procedure. 3. Ascites, anasarca, and pleural effusions. TECHNICAL DOCUMENTATION: JOB ID: [id number] [employer]- All Rights Reserved Reading location - IP/workstation name: [email or web address]
[2018-12-07 13:30] VITALS: BP 106/63
[2018-12-07] MEDS ORDERED: DEXTROSE 5%-NORMAL SALINE 1,000 ML IV PRN (14:44)
== END 2018-12-07 16:27 | disposition short-term general hospital (02) ==
LOC: ER 19:03
DX: R94.5 Abnormal results of liver function studies (principal); M79.604 Pain in right leg; C25.9 Malignant neoplasm of pancreas, unspecified; T81.9XXA Unspecified complication of procedure, initial encounter; X58.XXXA Exposure to other specified factors, initial encounter; E78.00 Pure hypercholesterolemia, unspecified; I10 Essential (primary) hypertension; E11.9 Type 2 diabetes mellitus without complications; Z87.442 Personal history of urinary calculi; Z90.49 Acquired absence of other specified parts of digestive tract; Z98.84 Bariatric surgery status
CPT/HCPCS: 96376; 99285; 96361; 96375; 96365; 36415; 87040; 82962; 83690; 85025; 80053; 74181; 76705; 74177; J2270 ×2; J7042; J7030; J3370